=== PATIENT | female | born 1960 | race Caucasian/White ===

== ENCOUNTER → 2021-08-16 02:52 | Outpatient (CLI) | payer BC, SELFPAY ==
[2021-08-16 18:23] LABS: SARS-CoV-2 RNA PCR Negative
== END ==
PROVIDERS: PCP Nurse Practitioner Family; Visit Provider Internal Medicine Gastroenterology
DX: Z01.812 Encounter for preprocedural laboratory examination (principal); Z20.822 Contact with and (suspected) exposure to COVID-19
CPT/HCPCS: C9803; U0003; U0005

== ENCOUNTER 2021-08-19 00:48 | Day surgery (SDC) | payer BC, SELFPAY ==
[2021-08-11 13:25] VITALS: BMI 34.7
--- NOTE | 2021-08-18 15:14 | PM.HPGS ---
History of Present Illness History of Present Illness Consent: Risks, benefits, and alternatives have been discussed and questions answered. Patient agrees to proceed with procedure. Chief complaint: positive cologuard Narrative: Huong Teague is a 60 year old female Referred for colon cancer screening. Review of Systems Review of Systems: All systems reviewed & are unremarkable except as noted in HPI and below PMFSH Family History Family History Other Diabetes mellitus Family history of malignant neoplasm Social History Social History Smoking status: Never smoker Alcohol intake: current Drinks per week: 1 Living arrangements: alone Spiritual care concerns: No Meds Home Medications and Allergies Home Medications Medication Instructions Recorded Confirmed Type atorvastatin 20 mg PO DAILY 08/11/21 08/19/21 History clonazepam 0.5 mg PO DAILY 08/11/21 08/19/21 History sertraline 100 mg PO DAILY 08/11/21 08/19/21 History Allergies Allergy/AdvReac Type Severity Reaction Status Date / Time No Known Allergies Allergy Verified 08/11/21 13:23 Exam Resp: Auscultation: clear to auscultation bilaterally Cardio: Rate: regular rate Rhythm: regular rhythm GI: GI Palp: Yes Soft to palpation and No Tenderness to palpation present (GI) Assessment and Plan Assessment and plan (1) Colon cancer screening: Code(s): Z12.11 - Encounter for screening for malignant neoplasm of colon Status: Acute Assessment and Plan: Colonoscopy with possible biopsy or polypectomy or cautery or injection of substances.
[2021-08-19 06:21] VITALS: BP 145/90; PULSE 89; RESP 18; TEMP 36.1; O2SAT 98; BMI 30.7
[2021-08-19] MEDS: LACTATED RINGERS 1,000 ML 150 ML IV CONT (06:42)
--- NOTE | 2021-08-19 07:17 | WPDANESEPPF ---
Anes - Initial Pre Proc Eval Procedure: Operation Date: 08/19/21 07:30 Proposed Procedures p Colonoscopy - Beto Woodall MD Date/Time: 08/19/21 07:17 Surgeon: Beto Woodall MD Pre Op Diagnosis: positive cologuard Patient Data Age: 60 Gender: F Height: 1.57 m Weight: 76.1 kg Last Vital Signs Temp 36.1 C L 08/19/21 06:21 Pulse 89 08/19/21 06:21 Resp 18 08/19/21 06:21 BP 145/90 H 08/19/21 06:21 Pulse Ox 98 08/19/21 06:21 Allergies Allergy/AdvReac Type Severity Reaction Status Date / Time No Known Allergies Allergy Verified 08/11/21 13:23 Home Medications Medication Instructions Recorded Confirmed Type atorvastatin 20 mg PO DAILY 08/11/21 08/19/21 History clonazepam 0.5 mg PO DAILY 08/11/21 08/19/21 History sertraline 100 mg PO DAILY 08/11/21 08/19/21 History Patient hx anesthesia problems: none Family hx anesthesia problems: none Results Review: All pre-operative results and documents have been reviewed as part of the pre-operative evaluation. [facility] Past Medical History Medical History (Updated 08/19/21 @ 07:20 by Juan M Ortiz MD) Anxiety Depression Hyperlipidemia Family History Family History Other Diabetes mellitus Family history of malignant neoplasm Social History Social History Smoking status: Never smoker Alcohol intake: current Drinks per week: 1 Living arrangements: alone Spiritual care concerns: No Anes - Eval Final PreProcedure Day of Procedure 08/19/21 07:17 Patient weight: obese Heart: regular rate and rhythm Lungs: clear to auscultation and normal air movement Airway: Mallampati scale class II Neurological: alert and oriented Last oral intake: >/= 8 hours ASA classification: II Emergent: no Anesthetic plan: proceed Anesthesia type and monitoring: general GIVS Results Review: All pre-operative results and documents have been reviewed as part of the pre-operative evaluation. Informed Consent: The patient's anesthetic plan and its attendant risks and benefits were discussed with the patient/family/POA. Questions were solicited and answers provided to the satisfaction of the patient/family/POA.
[2021-08-19 08:00] VITALS: BP 102/60; PULSE 71; RESP 14; O2SAT 100
[2021-08-19 08:10] VITALS: BP 117/68; PULSE 67; RESP 22; O2SAT 100
[2021-08-19 08:20] VITALS: BP 135/78; PULSE 53; RESP 18; O2SAT 100
== END 2021-08-19 08:29 | disposition home or self-care (01) ==
PROVIDERS: PCP Nurse Practitioner Family; Visit Provider Internal Medicine Gastroenterology
PROC: 0DJD8ZZ Inspection of Lower Intestinal Tract, Via Natural or Artificial Opening Endoscopic (ICD-10-PCS; CPT 45378; principal; 2021-08-19 07:30)
DX: Z12.11 Encounter for screening for malignant neoplasm of colon (principal); D12.3 Benign neoplasm of transverse colon; K63.5 Polyp of colon; K57.30 Diverticulosis of large intestine without perforation or abscess without bleeding; R19.5 Other fecal abnormalities; F41.8 Other specified anxiety disorders; E78.5 Hyperlipidemia, unspecified; E66.9 Obesity, unspecified; Z68.30 Body mass index [BMI] 30.0-30.9, adult
CPT/HCPCS: 45385; 45381; 45380; 88305; J2001; J2704; J7120

== ENCOUNTER → 2021-10-19 11:29 | Outpatient (REF) | payer BC, SELFPAY | LOC: ANHLAB 11:29 | PROVIDERS: PCP Nurse Practitioner Family; Visit Provider Nurse Practitioner | DX: C44.529 Squamous cell carcinoma of skin of other part of trunk (principal) | CPT/HCPCS: 88305 ==

== ENCOUNTER → 2021-11-10 10:30 | Outpatient (REF) | payer BC, SELFPAY | LOC: ANHLAB 10:30 | PROVIDERS: PCP Nurse Practitioner Family; Visit Provider Nurse Practitioner | DX: C44.529 Squamous cell carcinoma of skin of other part of trunk (principal) | CPT/HCPCS: 88305; 88331 ==

== ENCOUNTER 2022-01-20 14:20 | Outpatient (CLI) | payer BC, SELFPAY ==
--- NOTE | ~2022-01-20 | MR_ITS ---
EXAMINATION: MR brain/brain stem wo/w con DATE: 01/20/2022 15:22 INDICATION: Tremor. TECHNIQUE: Magnetic resonance imaging (MRI) of the brain and brainstem was performed without and with 18 mL MultiHance intravenous contrast. COMPARISON: None. FINDINGS: There is a focus of increased T2-weighted signal intensity in the right frontal lobe deep w steven matter, which is normal as an isolated finding. There is no intracranial hemorrhage, acute infar ction, or abnormal intracranial mass lesion. The ventricles are normal in size. The paranasal sinuses are clear. The orbits are normal. The mastoid air cells are normal. IMPRESSION: 1. Normal brain. Reviewed, dictated and finalized at location B. IMPRESSION: 1. Normal brain.
[2022-01-20 15:03] LABS: Estimated Glomerular Filt Rate > 60
== END 2022-01-20 14:21 | disposition home or self-care (01) ==
PROVIDERS: PCP Nurse Practitioner Family; Visit Provider Nurse Practitioner Family
DX: R25.1 Tremor, unspecified (principal)
CPT/HCPCS: 70553; A9577

== ENCOUNTER → 2022-12-07 15:15 | Outpatient (CLI) | payer BC, SELFPAY ==
--- NOTE | ~2022-12-07 | MM_ITS ---
EXAMINATION: MM screening georgi BI w ivy HISTORY: Screening mammogram TECHNIQUE: Craniocaudal and mediolateral oblique 3-D tomosynthesis images were obtained and synthetic 2-D images were generated. CAD analysis was submitted and interpreted. COMPARISON: 03/06/2008 BREAST PARENCHYMAL COMPOSITION: There are scattered areas of fibroglandular density. FINDINGS: No suspicious mass, calcification, or architectural distortion are identified in either gale ast to suggest malignancy. There has been no suspicious interval change. IMPRESSION: 1. No mammographic evidence of malignancy. 2. Recommend routine screening mammography in one year. BI-RADS Category 1: Negative Reviewed, dictated and finalized at location A. [employer]
== END ==
PROVIDERS: PCP Nurse Practitioner Family; Visit Provider Nurse Practitioner Family
DX: Z12.31 Encounter for screening mammogram for malignant neoplasm of breast (principal)
CPT/HCPCS: 77063; 77067

== ENCOUNTER 2024-12-05 00:22 | Day surgery (SDC) | payer MEDICARE, SELFPAY ==
[2024-11-20 12:59] VITALS: BMI 36.2
--- OUTSIDE RECORDS SUMMARY | 2024-12-05 00:25 | XMS_ITS | Data Portability ---
Author Organization [place] - [facility] [employer] [facility], Main Office Address [address] [place] [address] Care Team Providers Care Calculation Clerk Name Role Phone [facility] (LAB) Primary Ca re Provider Assessment No assessment recorded. Plan of Treatment Reminders Order Date Submit Date Provider Last Modified By Organization Details Last Modified Time Details Appointments None recorded. Lab TSH, serum, reflex free T4 [address] [facility], [address] [place], [address], 3 08:54:22 drug screen, urine 2022 023 [facility], [address] [place], [address], 3 14:06:22 lipid panel, serum 2022 023 [facility], [address] [place], [address], 3 20:13:41 CMP, serum or plasma 2022 023 [facility], [address] [place], [address], 3 20:13:46 HbA1c (hemoglobin A1c), blood [address] [facility], [address] [place], [address], 3 10:09:06 CBC w/ auto diff 2022 023 [facility] - Outpatient Lab, [address] [place], [address], 20:08:56 Referral neurologist referral - eval and treat for tremor. Was a Naseer patient on primadone 2022 023 [id number] [facility] - Neurology, [address], [facility] [place], [address], 3 11:26:37 Procedures None recorded. Surgeries None recorded. Imaging None recorded. Medication Orders lisinopril 20 mg tablet 2022 023 [facility] [address], [address] [facility] [address], [place], [address], 14:38:13 Patient TargetsNo targets recorded. Patient Instructions Encounter Date Encounter Id Patient Instructions Last Modified By Organization Details Last Modified Time 02/07/2023 [id number] FU in 4 mo, sooner as needed. Lipid, depression/anxiet y, tremor Not available 02/07/2023 10:37:45 07/27/2023 [id number] FU in 6 mo for weight,, htn, depression, lipid, labs. Not available 07/27/2023 14:39:14 Reason for Referral Neurologist Referral for Keith mor eval and treat for tremor. Was a Naseer patient on primadone Referring Physician: Cristel Ball, Family Medicine, Encounter Date: 07/27/2023 Results Created Date Observation Date Name Description Value Unit Range Abnormal Flag Note LastModifiedBy Organization Detail LastModifiedTime 03/23/20 22 03/24/2022 HEMOG LOBIN A1C HA1C 5.6 % 4.0-6. 0 Diabe tori Scree kay Crite risa: <5.7% Consi stent with absen ce of diabe tori 5.7-6 .4% Consi stent with incre ased risk for diabe tori (pred iabet es) >OR=6 .5% Consi stent with diabe tori REFER ENCE: Diabe tori Care 2016, 39([place] ppl.1 ):s13 -s22 Not Available [facility] (Lab) [address] [place], [address], 03/24/2022 20:14:42 03/23/20 22 03/24/2022 FOLAT E, SERUM /PLAS MA folate 13.8 NG/mL 2.76-2 0.0 Not Available [facility] (Lab) [address] [place], [address], 03/24/2022 16:34:02 03/23/20 22 03/24/2022 VITAM IN B12 (PETRA RIYA ) vb12 561 pg/mL 239-93 1 Not Available [facility] (Lab) [address] [place], [address], 03/24/2022 16:33:57 03/23/20 22 03/24/2022 TSH W/REF ANDREI FT4 TSH with reflex free T4 0.762 uIU/m L 0.465- 4.680 Not Available [facility] (Lab) [address] [place], [address], 03/24/2022 16:11:40 03/23/20 22 03/24/2022 VITAM IN D 25-HY DROXY vd25oh 34.9 NG/mL 30-100 Vitam in D Statu s: Defic ient: <20 ng/mL Insuf ficie nt: 20-29 ng/mL Suffi cient : 30-10 0 ng/mL Not Available [facility] (Lab) [address] [place], [address], 03/24/2022 15:45:15 03/23/20 22 03/24/2022 CBC/C OMPLE TE BLD COUNT W/DIF F white blood cells 9.0 x10'3 /uL 4.2-10 .8 Not Available [facility] (Lab) [address] [place], [address], 03/24/2022 15:28:41 03/23/20 22 03/24/2022 CBC/C OMPLE TE BLD COUNT W/DIF F red blood cells 4.80 x10'6 /uL 3.80-5 .20 Not Available [facility] (Lab) [address] [place], [address], 03/24/2022 15:28:41 03/23/20 22 03/24/2022 CBC/C OMPLE TE BLD COUNT W/DIF F hemoglobin 13.7 g/dL 12.0-1 5.6 Not Available [facility] (Lab) [address] [place], [address], 03/24/2022 15:28:41 03/23/20 22 03/24/2022 CBC/C OMPLE TE BLD COUNT W/DIF F hematocrit 42.3 % 35.7-4 5.7 Not Available [facility] (Lab) [address] [place], [address], 03/24/2022 15:28:41 03/23/20 22 03/24/2022 CBC/C OMPLE TE BLD COUNT W/DIF F mean red cell volume 88.1 fL 82.0-9 9.0 Not Available [facility] (Lab) [address] [place], [address], 03/24/2022 15:28:41 03/23/20 22 03/24/2022 CBC/C OMPLE TE BLD COUNT W/DIF F mean red cell hemoglobin 28.5 pg 27.0-3 3.0 Not Available [facility] (Lab) [address] [place], [address], 03/24/2022 15:28:41 03/23/20 22 03/24/2022 CBC/C OMPLE TE BLD COUNT W/DIF F mean RBC HGB concentratio n 32.4 g/dL 31.0-3 6.0 Not Available [facility] (Lab) [address] [place], [address], 03/24/2022 15:28:41 03/23/20 22 03/24/2022 CBC/C OMPLE TE BLD COUNT W/DIF F red cell distribution width 13.3 % 11.8-1 5.5 Not Available [facility] (Lab) [address] [place], [address], 03/24/2022 15:28:41 03/23/20 22 03/24/2022 CBC/C OMPLE TE BLD COUNT W/DIF F platelets 239 x10'3 /uL 150-40 0 Not Available [facility] (Lab) [address] [place], [address], 03/24/2022 15:28:41 03/23/20 22 03/24/2022 CBC/C OMPLE TE BLD COUNT W/DIF F mean platelet volume 11.7 fL 9.0-12 .4 Not Available [facility] (Lab) [address] [place], [address], 03/24/2022 15:28:41 03/23/2003/24/2022 CBC/C OMPLE TE BLD COUNT W/DIF F neutrophils 56.2 % 39.0-7 2.0 Not Available [facility] (Lab) [address] [place], [address], 03/24/2022 15:28:41 03/23/2003/24/2022 CBC/C OMPLE TE BLD COUNT W/DIF F lymphocytes 30.5 % 16.0-4 7.0 Not Available [facility] (Lab) [address] [place], [address], 03/24/2022 15:28:41 03/23/20 22 03/24/2022 CBC/C OMPLE TE BLD COUNT W/DIF F monocytes 8.8 % 5.0-12 .0 Not Available [facility] (Lab) [address] [place], [address], 03/24/2022 15:28:41 03/23/20 22 03/24/2022 CBC/C OMPLE TE BLD COUNT W/DIF F eosinophils 3.2 % 1.0-7. 0 Not Available [facility] (Lab) [address] [place], [address], 03/24/2022 15:28:41 03/23/20 22 03/24/2022 CBC/C OMPLE TE BLD COUNT W/DIF F basophils 0.6 % 0.0-2. 0 Not Available [facility] (Lab) [address] [place], [address], 03/24/2022 15:28:41 03/23/20 22 03/24/2022 CBC/C OMPLE TE BLD COUNT W/DIF F immature granulocytes 0.7 % 0.00-0 .50 high Not Available [facility] (Lab) [address] [place], [address], 03/24/2022 15:28:41 03/23/20 22 03/24/2022 CBC/C OMPLE TE BLD COUNT W/DIF F neutrophils, absolute count 5.08 x10'3 /uL 1.5-8. 0 Not Available [facility] (Lab) [address] [place], [address], 03/24/2022 15:28:41 03/23/2003/24/2022 CBC/C OMPLE TE BLD COUNT W/DIF F lymphocytes, absolute count 2.76 x10'3 /uL 1.07-3 .43 Not Available [facility] (Lab) [address] [place], [address], 03/24/2022 15:28:41 03/23/20 22 03/24/2022 CBC/C OMPLE TE BLD COUNT W/DIF F monocytes, absolute count 0.80 x10'3 /uL 0.29-0 .99 Not Available [facility] (Lab) [address] [place], [address], 03/24/2022 15:28:41 03/23/20 22 03/24/2022 CBC/C OMPLE TE BLD COUNT W/DIF F eosinophils, absolute count 0.29 x10'3 /uL 0.02-0 .53 Not Available [facility] (Lab) [address] [place], [address], 03/24/2022 15:28:41 03/23/20 22 03/24/2022 CBC/C OMPLE TE BLD COUNT W/DIF F basophils, absolute count 0.05 x10'3 /uL 0.01-0 .08 Not Available [facility] (Lab) [address] [place], [address], 03/24/2022 15:28:41 03/23/20 22 03/24/2022 CBC/C OMPLE TE BLD COUNT W/DIF F immature granulocytes ,absolute 0.06 x10'3 /uL 0.00-0 .05 high Not Available [facility] (Lab) [address] [place], [address], 03/24/2022 15:28:41 03/23/20 22 03/24/2022 CBC/C OMPLE TE BLD COUNT W/DIF F nucleated red blood cells 0.0 % -0 Not Available [facility] (Lab) [address] [place], [address], 03/24/2022 15:28:41 03/23/20 22 03/24/2022 CBC/C OMPLE TE BLD COUNT W/DIF F NRBC# 0.00 x10'3 /uL Not Available [facility] (Lab) [address] [place], [address], 03/24/2022 15:28:41 03/23/20 22 03/24/2022 COMPR EHENS VIRIDIANA METAB OLIC PANEL sodium 135 mmol/ L 137-14 5 low Not Available [facility] (Lab) [address] [place], [address], 03/24/2022 15:22:13 03/23/20 22 03/24/2022 COMPR EHENS VIRIDIANA METAB OLIC PANEL potassium 4.1 mmol/ L 3.5-5. 1 Not Available [facility] (Lab) [address] [place], [address], 03/24/2022 15:22:13 03/23/20 22 03/24/2022 COMPR EHENS VIRIDIANA METAB OLIC PANEL chloride 103 mmol/ L 98-107 Not Available [facility] (Lab) [address] [place], [address], 03/24/2022 15:22:13 03/23/20 22 03/24/2022 COMPR EHENS VIRIDIANA METAB OLIC PANEL carbon dioxide 25 mmol/ L 22-30 Not Available [facility] (Lab) [address] [place], [address], 03/24/2022 15:22:13 03/23/20 22 03/24/2022 COMPR EHENS VIRIDIANA METAB OLIC PANEL anion gap 11.1 mmol/ L 14-22 low Not Available [facility] (Lab) [address] [place], [address], 03/24/2022 15:22:13 03/23/20 22 03/24/2022 COMPR EHENS VIRIDIANA METAB OLIC PANEL glucose 80 mg/dL 70-99 Not Available [facility] (Lab) [address] [place], [address], 03/24/2022 15:22:13 03/23/20 22 03/24/2022 COMPR EHENS VIRIDIANA METAB OLIC PANEL BUN 14 mg/dL 8-19 Not Available [facility] (Lab) [address] [place], [address], 03/24/2022 15:22:13 03/23/20 22 03/24/2022 COMPR EHENS VIRIDIANA METAB OLIC PANEL creatinine 0.71 mg/dL 0.66-1 .25 Not Available [facility] (Lab) [address] [place], [address], 03/24/2022 15:22:13 03/23/20 22 03/24/2022 COMPR EHENS VIRIDIANA METAB OLIC PANEL GFR >60 Refer ence Range : [place] GFR Healt hy Adult : >60 mL/mi n/1.7 3 m2 Chron ic Kidne y Disea se: 15-60 mL/mi n/1.7 3 m2 Kidne y Failu re: <15/m L/min /1.73 m2 www.n iddk. nih.g ov The MDRD study equat ion has not been valid ated in child yeyo <18 years of age; pregn ant women ; the elder ly >85 years of age; or in some racia l or ethni c subgr oups, such as Hisaz nics. Outsi de the valid ated cece eters , estim ated GFR is less accur ate, requi ring clini ryne judgm ent on a case- by-ca se basis . Clini ryne inter preta tion for other races and ages must be made by the clini alfredo. The MDRD study equat ion has not been valid ated for the evalu ation of serum creat inine relat ed to nutri claar l statu s or medic ation usage . For perso ns <18 years of age, a pedia tric GFR calcu lator is avail able on the F websi te: https ://wilma w.kid margarito.o rg/pr ofess ional s/kdo qi/gf r_cal culat or Not Available [facility] (Lab) [address] [place], [address], 03/24/2022 15:22:13 03/23/20 22 03/24/2022 COMPR EHENS VIRIDIANA METAB OLIC PANEL alkaline phosphatase 134 U/L 38-126 high Not Available [facility] (Lab) [address] [place], [address], 03/24/2022 15:22:13 03/23/20 22 03/24/2022 COMPR EHENS VIRIDIANA METAB OLIC PANEL alanine aminotransfe rase 20 U/L 0-35 Not Available [facility] (Lab) [address] [place], [address], 03/24/2022 15:22:13 03/23/20 22 03/24/2022 COMPR EHENS VIRIDIANA METAB OLIC PANEL aspartate aminotransfe rase 28 U/L 15-37 Not Available [facility] (Lab) [address] [place], [address], 03/24/2022 15:22:13 03/23/20 22 03/24/2022 COMPR EHENS VIRIDIANA METAB OLIC PANEL bilirubin, total 0.50 mg/dL 0.20-1 .30 Not Available [facility] (Lab) [address] [place], [address], 03/24/2022 15:22:13 03/23/20 22 03/24/2022 COMPR EHENS VIRIDIANA METAB OLIC PANEL calcium 10.0 mg/dL 8.4-10 .2 Not Available [facility] (Lab) [address] [place], [address], 03/24/2022 15:22:13 03/23/20 22 03/24/2022 COMPR EHENS VIRIDIANA METAB OLIC PANEL total protein 7.7 g/dL 6.3-8. 2 Not Available [facility] (Lab) [address] [place], [address], 03/24/2022 15:22:13 03/23/20 22 03/24/2022 COMPR EHENS VIRIDIANA METAB OLIC PANEL albumin 4.7 g/dL 3.0-4. 4 high Not Available [facility] (Lab) [address] [place], [address], 03/24/2022 15:22:13 03/23/20 22 03/24/2022 COMPR EHENS VIRIDIANA METAB OLIC PANEL globulin 3.0 g/dL 2.6-4. 2 Not Available [facility] (Lab) [address] [place], [address], 03/24/2022 15:22:13 03/23/20 22 03/24/2022 COMPR EHENS VIRIDIANA METAB OLIC PANEL A/G ratio 1.6 ratio 1.0-2. 0 Not Available [facility] (Lab) [address] [place], [address], 03/24/2022 15:22:13 03/23/20 22 03/24/2022 LIPID PANEL cholesterol 242 mg/dL 140-19 9 high NIH JOSE NSUS RECOM MENDA TION FOR CANDY STERO L: ADULT CHILD LOW RISK: <200 <170 BORDE RLINE : <200- 239 ----- HIGH RISK: >240 >200 Not Available [facility] (Lab) [address] [place], [address], 03/24/2022 15:22:03 03/23/20 22 03/24/2022 LIPID PANEL triglyceride s 220 mg/dL 0-150 high NIH JOSE NSUS REPOR T RECOM MENDA TION FOR TRIGL YCERI JOSE: ADULT CHILD LOW RISK: <150 ----- BODER LINE: 150-1 99 ----- HIGH RISK: >200 ----- Not Available [facility] (Lab) [address] [place], [address], 03/24/2022 15:22:03 03/23/20 22 03/24/2022 LIPID PANEL HDL cholesterol 52 mg/dL 40- Not Available [facility] (Lab) [address] [place], [address], 03/24/2022 15:22:03 03/23/20 22 03/24/2022 LIPID PANEL LDL cholesterol, calculated 146 mg/dL 0-130 high NIH JOSE NSUS REPOR T RECOM MENDA TIONS FOR LDL: ADULT CHILD LOW RISK <130 <110 (OPTI MAL LDL) <100 ----- SANYADE RLINE : 130-1 59 ----- HIGH RISK: >160 >130 A TRIGL YCERI DE RESUL T >400 INVAL IDATE S THE CALCU LATIO N FOR LDL FRACT IONAT ION - THE LDL RESUL T WILL NOT BE REPOR LAZARA. Not Available [facility] (Lab) [address] [place], [address], 03/24/2022 15:22:03 02/08/2002/07/2023 CBC/C OMPLE TE BLD COUNT W/DIF F white blood cells 7.5 x10'3 /uL 4.2-10 .8 Not Available [facility] (Lab) [address] [place], [address], 02/07/2023 20:08:55 02/08/2002/07/2023 CBC/C OMPLE TE BLD COUNT W/DIF F red blood cells 4.58 x10'6 /uL 3.80-5 .20 Not Available [facility] (Lab) [address] [place], [address], 02/07/2023 20:08:55 02/08/2002/07/2023 CBC/C OMPLE TE BLD COUNT W/DIF F hemoglobin 13.1 g/dL 12.0-1 5.6 Not Available [facility] (Lab) [address] [place], [address], 02/07/2023 20:08:55 02/08/2002/07/2023 CBC/C OMPLE TE BLD COUNT W/DIF F hematocrit 40.6 % 35.7-4 5.7 Not Available [facility] (Lab) [address] [place], [address], 02/07/2023 20:08:55 02/08/20 23 02/07/2023 CBC/C OMPLE TE BLD COUNT W/DIF F mean red cell volume 88.6 fL 82.0-9 9.0 Not Available [facility] (Lab) [address] [place], [address], 02/07/2023 20:08:55 02/08/20 23 02/07/2023 CBC/C OMPLE TE BLD COUNT W/DIF F mean red cell hemoglobin 28.6 pg 27.0-3 3.0 Not Available [facility] (Lab) [address] [place], [address], 02/07/2023 20:08:55 02/08/20 23 02/07/2023 CBC/C OMPLE TE BLD COUNT W/DIF F mean RBC HGB concentratio n 32.3 g/dL 31.0-3 6.0 Not Available [facility] (Lab) [address] [place], [address], 02/07/2023 20:08:55 02/08/20 23 02/07/2023 CBC/C OMPLE TE BLD COUNT W/DIF F red cell distribution width 13.3 % 11.8-1 5.5 Not Available [facility] (Lab) [address] [place], [address], 02/07/2023 20:08:55 02/08/20 23 02/07/2023 CBC/C OMPLE TE BLD COUNT W/DIF F platelets 243 x10'3 /uL 150-40 0 Not Available [facility] (Lab) [address] [place], [address], 02/07/2023 20:08:55 02/08/20 23 02/07/2023 CBC/C OMPLE TE BLD COUNT W/DIF F mean platelet volume 11.6 fL 9.0-12 .4 Not Available [facility] (Lab) [address] [place], [address], 02/07/2023 20:08:55 02/08/20 23 02/07/2023 CBC/C OMPLE TE BLD COUNT W/DIF F neutrophils 56.4 % 39.0-7 2.0 Not Available [facility] (Lab) [address] [place], [address], 02/07/2023 20:08:55 02/08/20 23 02/07/2023 CBC/C OMPLE TE BLD COUNT W/DIF F lymphocytes 33.1 % 16.0-4 7.0 Not Available [facility] (Lab) [address] [place], [address], 02/07/2023 20:08:55 02/08/20 23 02/07/2023 CBC/C OMPLE TE BLD COUNT W/DIF F monocytes 7.7 % 5.0-12 .0 Not Available [facility] (Lab) [address] [place], [address], 02/07/2023 20:08:55 02/08/20 23 02/07/2023 CBC/C OMPLE TE BLD COUNT W/DIF F eosinophils 2.0 % 1.0-7. 0 Not Available [facility] (Lab) [address] [place], [address], 02/07/2023 20:08:55 02/08/20 23 02/07/2023 CBC/C OMPLE TE BLD COUNT W/DIF F basophils 0.5 % 0.0-2. 0 Not Available [facility] (Lab) [address] [place], [address], 02/07/2023 20:08:55 02/08/20 23 02/07/2023 CBC/C OMPLE TE BLD COUNT W/DIF F immature granulocytes 0.3 % 0.00-0 .50 Not Available [facility] (Lab) [address] [place], [address], 02/07/2023 20:08:55 02/08/20 23 02/07/2023 CBC/C OMPLE TE BLD COUNT W/DIF F neutrophils, absolute count 4.24 x10'3 /uL 1.5-8. 0 Not Available [facility] (Lab) [address] [place], [address], 02/07/2023 20:08:55 02/08/20 23 02/07/2023 CBC/C OMPLE TE BLD COUNT W/DIF F lymphocytes, absolute count 2.49 x10'3 /uL 1.07-3 .43 Not Available [facility] (Lab) [address] [place], [address], 02/07/2023 20:08:55 02/08/20 23 02/07/2023 CBC/C OMPLE TE BLD COUNT W/DIF F monocytes, absolute count 0.58 x10'3 /uL 0.29-0 .99 Not Available [facility] (Lab) [address] [place], [address], 02/07/2023 20:08:55 02/08/20 23 02/07/2023 CBC/C OMPLE TE BLD COUNT W/DIF F eosinophils, absolute count 0.15 x10'3 /uL 0.02-0 .53 Not Available [facility] (Lab) [address] [place], [address], 02/07/2023 20:08:55 02/08/20 23 02/07/2023 CBC/C OMPLE TE BLD COUNT W/DIF F basophils, absolute count 0.04 x10'3 /uL 0.01-0 .08 Not Available [facility] (Lab) [address] [place], [address], 02/07/2023 20:08:55 02/08/20 23 02/07/2023 CBC/C OMPLE TE BLD COUNT W/DIF F immature granulocytes ,absolute 0.02 x10'3 /uL 0.00-0 .05 Not Available [facility] (Lab) [address] [place], [address], 02/07/2023 20:08:55 02/08/20 23 02/07/2023 CBC/C OMPLE TE BLD COUNT W/DIF F nucleated red blood cells 0.0 % -0 Not Available [facility] (Lab) [address] [place], [address], 02/07/2023 20:08:55 02/08/20 23 02/07/2023 CBC/C OMPLE TE BLD COUNT W/DIF F NRBC# 0.00 x10'3 /uL Not Available [facility] (Lab) [address] [place], [address], 02/07/2023 20:08:55 02/08/20 23 02/07/2023 LIPID PANEL cholesterol 165 mg/dL 140-19 9 NIH JOSE NSUS RECOM MENDA TION FOR CANDY STERO L: ADULT CHILD LOW RISK: <200 <170 BORDE RLINE : <200- 239 ----- HIGH RISK: >240 >200 Not Available [facility] (Lab) [address] [place], [address], 02/07/2023 20:13:41 02/08/20 23 02/07/2023 LIPID PANEL triglyceride s 163 mg/dL 0-150 high NIH JOSE NSUS REPOR T RECOM MENDA TION FOR TRIGL YCERI JOSE: ADULT CHILD LOW RISK: <150 ----- BODER LINE: 150-1 99 ----- HIGH RISK: >200 ----- Not Available [facility] (Lab) [address] [place], [address], 02/07/2023 20:13:41 02/08/20 23 02/07/2023 LIPID PANEL HDL cholesterol 45 mg/dL 40- Not Available [facility] (Lab) [address] [place], [address], 02/07/2023 20:13:41 02/08/20 23 02/07/2023 LIPID PANEL LDL cholesterol, calculated 87 mg/dL 0-130 NIH JOSE NSUS REPOR T RECOM MENDA TIONS FOR LDL: ADULT CHILD LOW RISK <130 <110 (OPTI MAL LDL) <100 ----- BORDE RLINE : 130-1 59 ----- HIGH RISK: >160 >130 A TRIGL YCERI DE RESUL T >400 INVAL IDATE S THE CALCU LATIO N FOR LDL FRACT IONAT ION - THE LDL RESUL T WILL NOT BE REPOR LAZARA. Not Available [facility] (Lab) [address] [place], [address], 02/07/2023 20:13:41 02/08/20 23 02/07/2023 COMPR EHENS VIRIDIANA METAB OLIC PANEL sodium 138 mmol/ L 137-14 5 Not Available [facility] (Lab) [address] [place], [address], 02/07/2023 20:13:46 02/08/20 23 02/07/2023 COMPR EHENS VIRIDIANA METAB OLIC PANEL potassium 4.3 mmol/ L 3.5-5. 1 Not Available [facility] (Lab) [address] [place], [address], 02/07/2023 20:13:46 02/08/20 23 02/07/2023 COMPR EHENS VIRIDIANA METAB OLIC PANEL chloride 104 mmol/ L 98-107 Not Available [facility] (Lab) [address] [place], [address], 02/07/2023 20:13:46 02/08/20 23 02/07/2023 COMPR EHENS VIRIDIANA METAB OLIC PANEL carbon dioxide 25 mmol/ L 22-30 Not Available [facility] (Lab) [address] [place], [address], 02/07/2023 20:13:46 02/08/20 23 02/07/2023 COMPR EHENS VIRIDIANA METAB OLIC PANEL anion gap 13.3 mmol/ L 14-22 low Not Available [facility] (Lab) [address] [place], [address], 02/07/2023 20:13:46 02/08/20 23 02/07/2023 COMPR EHENS VIRIDIANA METAB OLIC PANEL glucose 94 mg/dL 70-99 Not Available [facility] (Lab) [address] [place], [address], 02/07/2023 20:13:46 02/08/20 23 02/07/2023 COMPR EHENS VIRIDIANA METAB OLIC PANEL BUN 15 mg/dL 8-19 Not Available [facility] (Lab) [address] [place], [address], 02/07/2023 20:13:46 02/08/20 23 02/07/2023 COMPR EHENS VIRIDIANA METAB OLIC PANEL creatinine 0.72 mg/dL 0.66-1 .25 Not Available [facility] (Lab) [address] [place], [address], 02/07/2023 20:13:46 02/08/20 23 02/07/2023 COMPR EHENS VIRIDIANA METAB OLIC PANEL GFR >60 Refer ence Range : [place] ge GFR Healt hy Adult : >60 mL/mi n/1.7 3 m2 Chron ic Kidne y Disea se: 15-60 mL/mi n/1.7 3 m2 Kidne y Failu re: <15/m L/min /1.73 m2 www.n iddk. nih.g ov The MDRD study equat ion has not been valid ated in child yeyo <18 years of age; pregn ant women ; the elder ly >85 years of age; or in some racia l or ethni c subgr oups, such as Hispa nics. Outsi de the valid ated cece eters , estim ated GFR is less accur ate, requi ring clini ryne judgm ent on a case- by-ca se basis . Clini ryne inter preta tion for other races and ages must be made by the clini alfredo. The MDRD study equat ion has not been valid ated for the evalu ation of serum creat inine relat ed to nutri clara l statu s or medic ation usage . For perso ns <18 years of age, a pedia tric GFR calcu lator is avail able on the [facility] websi te: https :[email or web address] [email or web address].bhaskar wooy.o rg/pr ofess ional s/kdo qi/gf r_cal culat or Not Available [facility] (Lab) [address] [place], [address], 02/07/2023 20:13:46 02/08/20 23 02/07/2023 COMPR EHENS VIRIDIANA METAB OLIC PANEL alkaline phosphatase 126 U/L 38-126 Not Available [facility] (Lab) [address] [place], [address], 02/07/2023 20:13:46 02/08/20 23 02/07/2023 COMPR EHENS VIRIDIANA METAB OLIC PANEL alanine aminotransfe rase 24 U/L 0-35 Not Available [facility] (Lab) [address] [place], [address], 02/07/2023 20:13:46 02/08/20 23 02/07/2023 COMPR EHENS VIRIDIANA METAB OLIC PANEL aspartate aminotransfe rase 26 U/L 15-37 Not Available [facility] (Lab) [address] [place], [address], 02/07/2023 20:13:46 02/08/20 23 02/07/2023 COMPR EHENS VIRIDIANA METAB OLIC PANEL bilirubin, total 0.40 mg/dL 0.20-1 .30 Not Available [facility] (Lab) [address] [place], [address], 02/07/2023 20:13:46 02/08/20 23 02/07/2023 COMPR EHENS VIRIDIANA METAB OLIC PANEL calcium 9.9 mg/dL 8.4-10 .2 Not Available [facility] (Lab) [address] [place], [address], 02/07/2023 20:13:46 02/08/20 23 02/07/2023 COMPR EHENS VIRIDIANA METAB OLIC PANEL total protein 7.2 g/dL 6.3-8. 2 Not Available [facility] (Lab) [address] [place], [address], 02/07/2023 20:13:46 02/08/20 23 02/07/2023 COMPR EHENS VIRIDIANA METAB OLIC PANEL albumin 4.5 g/dL 3.0-4. 4 high Not Available [facility] (Lab) [address] [place], [address], 02/07/2023 20:13:46 02/08/20 23 02/07/2023 COMPR EHENS VIRIDIANA METAB OLIC PANEL globulin 2.7 g/dL 2.6-4. 2 Not Available [facility] (Lab) [address] [place], [address], 02/07/2023 20:13:46 02/08/20 23 02/07/2023 COMPR EHENS VIRIDIANA METAB OLIC PANEL A/G ratio 1.7 ratio 1.0-2. 0 Not Available [facility] (Lab) [address] [place], [address], 02/07/2023 20:13:46 02/08/20 23 02/07/2023 TSH W/REF ANDREI FT4 TSH with reflex free T4 2.050 uIU/m L 0.465- 4.680 Not Available [facility] (Lab) [address] [place], [address], 02/07/2023 20:29:53 02/08/20 23 02/07/2023 HEMOG LOBIN A1C HA1C 5.6 % 4.0-6. 0 Diabe tori Veena villanueva Crite risa: <5.7% Consi stent with absen ce of diabe tori 5.7-6 .4% Consi stent with incre ased risk for diabe tori (pred iabet es) >OR=6 .5% Consi stent with diabe tori REFER ENCE: Diabe tori Care 2016, 39([place] ppl.1 ):s13 -s22 Not Available [facility] ([facility]) [address] [place], [address], 02/07/2023 21:28:40 12/08/19 23 12/07/2022 MAMMO , veena villanueva, digit al, bilat eral No observ ation record ed. [email or web address] [facility] [address], [place], [address], 12/12/2022 16:39:42 Result Notes None recorded. Problems Name Problem SNOMED Code Status Onset Date Resolution Date Notes Provider Name and Address Organization Details Recorded Time Hypercholester olemia 42442647 Active 2020 Not Available [facility] 3 23:30:25 Tremor 61099480 Active 2020 Not Available [facility] 3 23:30:25 Depressive disorder 41067736 Active 2020 Not Available [facility] 3 23:30:25 Anxiety 29865740 Active 2020 Not Available [facility] 3 23:30:25 Hyperlipidemia 49087532 Active 2020 Not Available [facility] 3 23:30:25 Essential hypertension 31993666 Active 2022 Cristel Ball NP [address], [facility] [address], [place], [address] , [facility] [employer] 3 14:37:25 Notes:squamous cell skin can cer back 10/2021 Problem Notes None recorded. Procedures Surgical History Date Name Laterality Status Provider Name and Address Organization Details Recorded Time 3 Most Recent Mammogram completed Cristel Gonzalez RN [employer] 02/07/2023 10:02:21 Date of Last Pap Smear completed Not Available [facility] 11/30/2022 23:28:57 Imaging Results Imaging Date Name Status LastModified by Organiz ation Details LastModified Time 12/07/2022 MAMMO, screening, digital, bilateral completed [email or web address] [facility] [address], [place], [address], 12/12/2022 16:39:42 Procedure Notes None recorded. Medical Equipment None Reported. Allergies No known drug allergies Medications Name Sig Start Date Stop Date Status Note LastModified by Organization Details LastModified Time atorvastatin 40 mg tablet active Not Available Not Available Not Available primidone 50 mg tablet TAKE 1/2 (ONE-THELMA F) TABLET BY MOUTH ONCE DAILY AT BEDTIME 07/27 completed Not Available Not Available Not Available atorvastatin 20 mg tablet TAKE 1 TABLET BY MOUTH NIGHTLY AT BEDTIME 03/25 completed Not Available Not Available Not Available cephalexin 250 mg capsule TAKE 1 CAPSULE BY MOUTH EVERY 6 HOURS 03/23 completed Not Available Not Available Not Available lisinopril 20 mg tablet Take 1 tablet(s ) every day by oral route. active Not Available Not Available No t Available clonazepam 0.5 mg tablet TAKE 1/2 TO 1 (ONE-THELMA F TO ONE) TABLET BY MOUTH TWICE DAILY NEEDED 2022 active Not Available Not Available Not Avai lable sertraline 100 mg tablet active Not Available Not Available Not Available Vitals Date Recorded Body mass index (BMI) Body height Oxygen saturation Oxygen saturation in Arterial blood by Pulse oximetry Heart rate Body temperature Body weight Systolic blood pressure Diastolic blood pressure Provider Name and Address Organization Details Last Updated DateTime 2 36.8 kg/m2 157.48 cm 99 % 99 % 64 /min 97.5 [degF] 01549.0 7 g 126 mm[Hg] 76 mm[Hg] Not Available [facility] 3 23:30:02 Date Recorded Body mass index (BMI) Body height Oxygen saturation Oxygen saturation in Arterial blood by Pulse oximetry Heart rate Body temperature Body weight Systolic blood pressure Diastolic blood pressure Provider Name and Address Organization Details Last Updated DateTime 2 35.4 kg/m2 157.48 cm 98 % 98 % 76 /min 98.2 [degF] 94455.4 3 g 122 mm[Hg] 80 mm[Hg] Not Available [facility] 3 23:30:02 Date Recorded Body height Body mass index (BMI) Body weight Body temperature Heart rate Heart rate Respiratory rate Oxygen saturation Oxygen saturation in Arterial blood by Pulse oximetry Pain severity - 0-10 verbal numeric rating [Score] - Reported Systolic blood pressure Diastolic blood pressure Provider Name and Address Organization Details Last Updated DateTime 3 157.48 cm 36.6 kg/m2 35499.4 7 g 96.9 [degF] 67 /min 67 /min 16 /min 97 % 97 % 0 158 mm[Hg] 86 mm[Hg] Cristel Gonzalez RN [facility] [employer] [facility] 3 10:00:33 Date Recorded Body height Body mass index (BMI) Body weight Body temperature Heart rate Respiratory rate Oxygen saturation Oxygen saturation in Arterial blood by Pulse oximetry Pain severity - 0-10 verbal numeric rating [Score] - Reported Systolic blood pressure Diastolic blood pressure Provider Name and Address Organization Details Last Updated DateTime 3 157.48 cm 36.3 kg/m2 82556.0 9 g 97 [degF] 62 /min 16 /min 98 % 98 % 0 170 mm[Hg] 100 mm[Hg] Cristel Gonzalez RN [facility] [employer] [facility] 3 14:10:08 Social History Question Answer Notes LastModified by Organization Details LastModified Time Tobacco Smoking Status Never Smoker Not Available [facility] 11/30/2022 23:28:34 Do You Have An Advance Directive? Yes Information not available 02/07/2023 What Is Your Level Of Alcohol Consumption? Occasional [email or web address].[id number] Information not available 11/30/2022 Do You Wear A Helmet When Biking? No [id number].[id number] Information not available 11/30/2022 Is Blood Transfusion Acceptable In An Emergency? Yes Information not available 02/07/2023 What Is Your Level Of Caffeine Consumption? Moderate [id number] Information not available 11/30/2022 What Is Your Code Status? DNR Information not available 02/07/2023 In The 14 Days Before Symptom Onset, Have You Had Close Contact With A Laboratory-confi rmed COVID-19 While That Case Was Ill? No MIGRATION.030 [id number] Information not available 11/30/2022 In The 14 Days Before Symptom Onset, Have You Had Close Contact With A Person Who Is Under Investigation For COVID-19 While That Person Was Ill? No MIGRATION.0301 [id number] Information not available 11/30/2022 Are You Currently Employed? Yes Information not available 02/07/2023 What Type Of Diet Are You Following? 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 Yes Son Passed (2019) MIGRATION.030 [id number] Information not available 11/30/2022 Do You Use Insect Repellent Routinely? Yes MIGRATION.030 [id number] Information not available 11/30/2022 Where Do You Live? SingleLevelHouse Information not available 02/07/2023 Do You Have A Medical Power Of Cotton Stomper? Yes Information not available 02/07/2023 Have You Ever Been Counseled For Unhealthy Alcohol Use? No MIGRATION.0301 [id number] Information not available 11/30/2022 Do You Have Any Pets? No MIGRATION.0301 [id number] Information not available 11/30/2022 What Is Your Relationship Status? MIGRATION.030 [id number] Information not available 11/30/2022 Do You Use Your Seat Belt Or Car Seat Routinely? Yes MIGRATION.0301 [id number] Information not available 11/30/2022 Do You Have Smoke And Carbon Monoxide Detectors In Your Home? Yes MIGRATION.0301 [id number] Information not available 11/30/2022 Are There Any Smokers In Your House? No MIGRATION.0301 532304 Information not available 11/30/2022 Do You Participate In Social Media? Yes MIGRATION.0301 668479 Information not available 11/30/2022 Do You Feel Stressed (tense, Restless, Nervous, Or Anxious, Or Unable To Sleep At Night)? [id number] MIGRATION.0301 467463 Information not available 11/30/2022 Do You Use Any Illicit Or Recreational Drugs? No MIGRATION.0301 242434 Information not available 11/30/2022 Do You Use Sunscreen Routinely? Yes MIGRATION.0301 [id number] Information not available 11/30/2022 Has Tobacco Cessation Counseling Been Provided? No MIGRATION.0301 832620 Information not available 11/30/2022 Have You Recently Traveled Abroad? No MIGRATION.0301 [id number] Information not available 11/30/2022 Do You Have Any Dietary Restrictions? No MIGRATION.0301 787860 Information not available 11/30/2022 Do You Or Have You Ever Used Any Other Forms Of Tobacco Or Nicotine? No MIGRATION.0301 855013 Information not available 11/30/2022 Sex: Unknown Functional Status Question Answer Note LastModified by Organization D etails LastModified Time What is your exercise level? None Information not available 07/27/2023 Mental Status None recorded. Family History Relationship Description Onset Age of this Age Resolved Age Notes LastModified by Organization Details LastModified Time Father Diabetes mellitus MIGRATION.475 [id number] Not available 11/30/2022 23:29:02 Paternal Grandmother Heart disease MIGRATION.402 [id number] Not available 11/30/2022 23:29:02 Son Attack Heart: Deceas ed MIGRATION.526 [id number] Not available 11/30/2022 23:29:02 Maternal Grandfather Attack Heart: Deceas ed MIGRATION.494 [id number] Not available 11/30/2022 23:29:02 Medical History Condition Response BLINDNESS N RHEUMATIC FEVER N KIDNEY STONES N BLADDER PROBLEMS N MRSA N OTHER # 1 N POLIO N LUNG DISEASE/DISORDER N HISTORY OF DRUG ABUSE N RADIATION / CHEMOTHERAPY N COPD N Other # 2 N BLOOD DISEASES N SURGERY N EAR OR HEARING PROBLEMS N MUMPS N SHINGLES N FEMALE PROBLEMS / INFECTIONS N DEPRESSION (INCLUDING POST ) N BOWEL PROBLEMS N STROKE/TIA N THYROID DISEASE N ULCERS N BENIGN PROSTATIC HYPERPLASIA N MEASLES N CERVICALGIA N TB SKIN TEST N HYPOTENSION N MYOCARDIAL INFARCTION N PARAPELGIA N OBESITY N GERD/NAUSEA N ANEURYSM N URINARY/BLADDER/KIDNEY PROBLEMS N CORONARY ARTERY DISEASE (CAD) N MENIERE'S DISEASE N ADDICTION CONCERNS N ENDOMETRIOSIS N USE OF BLOOD THINNERS N SKIN PROBLEMS N EMPHYSEMA N GASTROINTESTINAL DISORDER N MUSCLE,JOINT OR BONE PROBLEMS N GASTROINTESTINAL BLEEDING N BLOOD CLOTS N ASTHMA N CATARACTS N ERECTILE DYSFUNCTION N GI PROBLEMS N CHF N Low Testosterone N NEUROPATHY N INFERTILITY N AIDS/HIV N FRACTURES N CHEMOTHERAPY / RADIATION N VISION/EYE PROBLEMS N LIVER DISEASE N MALE HYPOGONADISM N HYPERTENSION Y TOURETTE'S N ANXIETY DISORDER Y BLOOD TRANSFUSION N ANEMIA/BLOOD DISORDER N CHRONIC EAR INFECTIONS N BRONCHITIS N TUBERCULOSIS N GLAUCOMA N FOOT PROBLEM N DIVERTICULITIS N SLEEP APNEA N CHICKENPOX N ALLERGIES/HAYFEVER N INFECTIOUS DISEASE N PROSTATE N HEART ARRHYTHMIA N INSOMNIA N HIGH CHOLESTEROL / HYPERLIPIDEMIA Y EYE PROBLEMS N HYPERTHYROIDISM N EATING DISORDER N EDEMA N CHRONIC PAIN SYNDROME N CAROTID BLOCKAGE N CONSTIPATION N BACK / NECK PROBLEMS N HAVE YOU BEEN HOSPITALIZED OR SEEN IN [facility] IN THE PAST YEAR ? N ATHEROSCLEROSIS N BREAST PROBLEMS N DIALYSIS N ECZEMA N FIBROMYALGIA N OSTEOPOROSIS N ARTHRITIS N NO SIGNIFICANT PAST MEDICAL HISTORY N APPENDICITIS N DIABETES, TYPE N BAD TEETH N HEARTBURN / REFLUX N ADD/ADHD N AUTISM SPECTRUM DISORDER (ASD) N HEPATITIS / LIVER DISEASE N PULMONARY DISEASE N GOUT N SLEEP DISORDER N ALZHEIMER'S DISEASE N PAIN N DEMENTIA N HERPES N SEIZURES/EPILEPSY N HEADACHES/MIGRAINES N VASCULAR DISEASE N PACEMAKER N DIZZINESS N HEART DISEASE/HEART PROBLEMS N KIDNEY DISEASE N SCARLET FEVER N MULTIPLE SCLEROSIS N DEVELOPMENTAL OR BEHAVIORAL DISORDERS N MENTAL DISORDER/ILLNESS N CANCER: SPECIFY N CARDIAC ARRHYTHMIA N PNEUMONIA N ATRIAL FIBRILLATION N Gall Stones N PULMONARY EMBOLISM N AUTOIMMUNE DISEASE N Gynecological History Statement/Question Response If Post Menopausal, Age at Menopause 44 Date of Last Mammogram 12/07/2022 Date of Last Colonoscopy Most Recent Bone Density Date of LMP Date of Last Pap Smear 07/23/2021 Most Recent Mammogram 12/07/2022 Obstetrics History GPAL:G 0 P 0 0 0 0 Immunizations Vaccine Type Date Status Note Provider Nam e and Address Organization Details Recorded Time Influenza, split virus, quadrivalent, PF 07/27/2022 completed Not Available [facility] 3 23:31:53 Influenza, split virus, quadrivalent, PF 07/23/2021 completed Not Available [facility] 3 23:31:53 Influenza, split virus, quadrivalent, PF 07/27/2023 completed Cristel Gonzalez RN [facility], [facility] [employer] [facility] 07/27/2023 14:56:23 Past Encounters Encounter ID Performer Location Encounter Start Date Encounter Closed Date Diagnosis/Indication Diagnosis SNOMED-CT Code Diagnosis ICD10 Code Diagnosis Note [id number] [facility] [address] [place] [address] 05/06/2021 00:00:00 05/06/2021 18:11:54 [id number] [facility] [address] [place] [address] 06/03/2021 00:00:00 06/03/2021 18:20:29 [id number] [facility] [address] [place] [address] 07/23/2021 00:00:00 07/23/2021 16:35:18 [id number] [facility] [address] [place] [address] 08/13/2021 00:00:00 08/13/2021 11:53:42 [id number] [facility] [address] Formerly named [facility] [place] [address] 01/12/2022 00:00:00 01/12/2022 09:52:51 [id number] [facility] [address] [place] [address] 03/23/2022 00:00:00 03/23/2022 16:42:48 [id number] [facility] [address] [place] [address] 04/27/2022 00:00:00 04/27/2022 14:46:30 [id number] [facility] [address] [place] [address] 07/26/2022 00:00:00 07/26/2022 18:15:43 [id number] Cristel Ball NP [facility] [address] [place] [address] 02/07/2023 09:49:02 02/07/2023 11:47:29 Depressive disorder 11341851 F32.9 sertraline 100 mg, 1.5 tab po daily. Doing better. Clonazapam prn. Hyperlipidemia 37454425 E78.5 Atorvastat in 40 mg po daily. Tremor 41189610 R25.1 Primidone 50 mg 1/2 tab po daily. Anxiety 67223266 F41.9 Stable. Sertraline 100 mg, 1.5 tab po daily. Clonazepam prn. Anemia screening 4816846 07 Z13.0 Diabetes m ellitus screening 577567975 Z13.1 Thyroid di sorder screening 499896408 Z13.29 [id number] Cristel Ball NP [facility] [address] [address] 07/27/2023 13:56:14 07/27/2023 14:48:12 Hyperlipidemia 97234405 E78.5 Atorvastat in 40 mg po daily. Tremor 20588994 R25.1 Primidone 50 mg 1/2 tab po daily. Depressive disorder 4338 9007 F32.9 Sertraline 100 mg, 1.5 tab po daily. Doing better. Clonazapam prn (average one tablet daily) Anxiety 77882345 F41.9 Stable. Sertraline 100 mg, 1.5 tab po daily. Clonazepam prn. Essential hypertension 60733241 I10 Lisinopril 20 mg po nightly. Administra tion of influenza vaccine 89852399 Z23 Health Concerns Section Related Observation LastModified by Organization Detai ls LastModified Time None Recorded Concern Status LastModified by Organization Details LastModified Time None Recorded Advance Directives Directive Y: Payers Encounter Date Sequence Insurance Name Policy Number Policy Blood Covered Member ID Blood Member ID Guarantor Name 02/07/2023 1 [place] [id number] Huong Teague [id number] 12 Huong Teague 07/27/2023 1 [place] [id number] Huong Teague [id number] 12 Huong Teague Notes Date Note Type Note Provider Name and Address Organization Details Recorded Time 02/07/2023 text/html Here for med zhao ck up. Due for labs. Depression and anxiety- no longer seeing therapist. Sertraline 150 mg doing better. Clonazepam prn. Feeling better on higher dose. Sun is out. Started MVI. Has been pushing self to get out more. Works from home. Derm- went back to [facility] [employer]. Andreea said everything was ok.Did get mammogram. Weight- working on being more active. Got an E-bike. Plans to reduce weight. Left elbow pain and left muscle pain. Off and on, but constant for 1 week. Does use left arm to clean. Cristel Ball NP [address] [facility], [facility] [address], [place], [address], [employer] 02/07/2023 10:39:04 07/27/2023 text/html Here for med zhao ck up. Due for labs. Depression and anxiety- Sertraline 150 mg doing better. Clonazepam prn. Plans to call the therapist again. On melatonin for sleep- can't sleep otherwise. Weight- Diet not at goal. Aware needing to get back to well balanced meals. Lipid- atorvastatin 40 mg. Tremor- Dr. John retired. Hasn't been on primidone since May. Cristel Ball NP [address] [facility], [facility] [address], [place], [address], [employer] 07/27/2023 14:41:12 OBGyn Episode No OBEpisode recorded.
--- OUTSIDE RECORDS SUMMARY | 2024-12-05 00:25 | XMS_ITS | Clinical Summary ---
Author Organization [facility] Address [facility] [place] [address] Care Team Providers Care Doctor Of Nurse Anesthesia Name Role Phone Unavailable Primary Care Provider Unavailabl e Allergies No known active allergies Medications multi vitamin/minerals tablet Take 1 tablet by mouth daily. Active Cholecalciferol (VITAMIN D) 50 MCG (2000 UT) Tab Take 1 tablet by mouth daily. Active Phoenix-3 Fatty Acids (FISH OIL) 500 MG capsule Take 500 mg by mouth daily. Active sertraline 100 MG tabletIndications:D epression, unspecified depression type Take 1.5 tablets (150 mg total) by mouth daily. 135 tablet 1 1 Active clonazePAM 0.5 MG tabletIndications:G rief at loss of child Take 0.5-1 tablets (0.25-0.5 mg total) by mouth 3 (three) times daily as needed for Anxiety. 90 tablet 1 Active atorvastatin 20 MG tabletIndications:M ixed hyperlipidemia Take 1 tablet (20 mg total) by mouth nightly at bedtime. 90 tablet 1 1 Active Active Problems Problem Noted Date Diagnosed Date Reactive depression 12/13/2019 Grief at loss of child 09/24/2019 Hyperlipidemia 05/20/2018 BMI 36.0-36.9,adult 08/03/2017 Immunizations Name Administration Dates Next Due Influenza (Generic) 09/13/2016,06/25/2013 Tdap (Generic) 09/13/2016 Family History Medical History Relation Comments Diabetes Father Heart Maternal Grandfather None Mother Heart Paternal Grandmother Heart Attack Son Relation Status Comments Father Maternal Grandfather Mother Alive Paternal Grandmother Son Social History Tobacco Use Types Packs/Day Years Used Date Smoking Tobacco: Never Smokeless Tobacco: Never Tobacco Cessation:Counseling Given: No Alcohol Use Standard Drinks/Week Comments Yes 0 (1 standard drink = 0.6 oz pur e alcohol) Occasional AUDIT-C Answer Date Recorded Frequency of Alcohol Consumption Monthly or less 04/26/2019 Average Number of Drinks Not on file 019 Frequency of Binge Drinking Not on file 04/02 PHQ-2 Answer Date Recorded PHQ-2 Score - If the patient scores above 3, please move on to questions 3-9 2 03/08/2021 Education Answer Date Recorded What is the highest level of school you have completed or the highest degree you have received? Some college, no degree 04/26/2019 Comments No Sex and Gender Information Value Date Recorded Sex Assigned at Female 04/26/2019 1:09 PM CDT Legal Sex Female 7:00 PM CDT Gender Identity Female 04/26/2019 1:09 PM CDT Sexual Orientation Straight 04/26/2019 1: 09 PM CDT Last Filed Vital Signs Vital Sign Reading Time Taken Comments Blood Pressure 137/82 03/08/2021 8:04 AM CDT Pulse 75 03/08/2021 8:04 AM CDT Temperature 36.2 C (97.1 F) 03/08/2021 8:04 AM CDT Respiratory Rate 16 03/08/2021 8:04 AM CDT Oxygen Saturation 97% 03/08/2021 8:04 AM CDT Inhaled Oxygen Concentration - - Weight 89.2 kg (196 lb 9.6 oz) 03/08/2021 8:04 A M CDT Height 157.5 cm (5' 2 ) 03/08/2021 8:04 AM CDT Body Mass Index 35.96 03/08/2021 8:04 AM CDT Plan of Treatment Health Maintenance Due Date Last Done Comments Colorectal Cancer Screening Colonoscopy (10 Years) 1958 Hepatitis C 1976 Mammogram Screening 1998 Zoster Vaccines (1 of 2) 2008 Dexa Scan (General) 2023 Pneumococcal Vaccine: 65+ Years (1 of 1 - PCV) 2023 COVID-19 Vaccine (2023-2 5 season) 2024 Influenza Adult (#1) 2024 09/13/2016, 06/25/2013 DTaP, Tdap and Td Vaccines ( 2 - Td or Tdap) 09/13/2026 09/13/2016 RSV Immunization or 60+ Years (1 - 1-dose 75+ series) 2033 Meningococcal B Vaccine Aged Out No l onger eligible based on patient's age to complete this topic Meningococcal Vaccine Aged Out No milton kendrick eligible based on patient's age to complete this topic RSV Immunizations Under 20 Months Aged Out No longer eligible b ased on patient's age to complete this topic [place] [address] [place] [address] [facility]
[2024-12-05 06:29] VITALS: BP 136/106; PULSE 77; RESP 20; TEMP 35.7; O2SAT 100; BMI 35.4
[2024-12-05] MEDS: LACTATED RINGERS 1,000 ML 150 ML IV CONT (06:43)
[2024-12-05 06:47] VITALS: BP 136/82
--- NOTE | 2024-12-05 07:04 | WPDANESEPPF ---
Anes - Initial Pre Proc Eval Procedure: Operation Date: 12/05/24 07:30 Proposed Procedures p Colonoscopy - Markie Bertrand MD Date/Time: 12/05/24 07:04 Surgeon: Markie Bertrand MD Pre Op Diagnosis: hx of colon polyps Patient Data Age: 64 Gender: F Height: 1.57 m Weight: 87.8 kg Last Vital Signs Temp 35.7 C L 12/05/24 06:29 Pulse 77 12/05/24 06:29 Resp 20 12/05/24 06:29 BP 136/82 12/05/24 06:47 Pulse Ox 100 12/05/24 06:29 O2 Del Method Room Air 12/05/24 06:29 Allergies Allergy/AdvReac Type Severity Reaction Status Date / Time No Known Allergies Allergy Verified 12/05/24 06:24 Home Medications ?Medication ?Instructions ?Recorded ?Confirmed ?Type atorvastatin 40 mg tablet 40 mg PO DAILY #90 tabs 08/21/24 12/05/24 Rx primidone 50 mg tablet See Rx Instructions .Route 11/26/24 12/05/24 Rx .COMPLEX #90 tabs Patient hx anesthesia problems: none Family hx anesthesia problems: none Results Review: All pre-operative results and documents have been reviewed as part of the pre-operative evaluation. [facility] Past Medical History Medical History PTSD (post-traumatic stress disorder) Seasonal allergies Encounter for removal of skin lesion Depression Anxiety Hyperlipidemia Family History Family History Father Diabetes mellitus Mother Hypertension Depression Anxiety Grandparent Heart disease Thyroid disease Other Family history of malignant neoplasm Social History Social History Smoking status: Never smoker Alcohol intake: current Drinks per week: 1 Alcohol use details: Occasionally Substance use: never Substance use type: does not use Lack of Transportation: No Lack of Food: Never True Current Housing: I Have Housing Concerned About Future Housing: No Difficulty Paying Gas/Electric Bills: No Difficulty Paying for Meds: No Currently Unemployed: No Education: Trade/Vocational Certificate Difficulty w/ Childcare or Family Care: No Living arrangements: with family Occupation/Education: occupation Gender identity (if verbalized by the patient): Female Spiritual care concerns: No Anes - Eval Final PreProcedure Day of Procedure 12/05/24 07:04 Patient weight: obese Heart: regular rate and rhythm Lungs: clear to auscultation Airway: Mallampati scale class II Neurological: alert and oriented Last oral intake: >/= 8 hours ASA classification: III Emergent: no Anesthetic plan: proceed Anesthesia type and monitoring: general GIVS and standard monitoring Results Review: All pre-operative results and documents have been reviewed as part of the pre-operative evaluation. Informed Consent: The patient's anesthetic plan and its attendant risks and benefits were discussed with the patient/family/POA. Questions were solicited and answers provided to the satisfaction of the patient/family/POA.
--- NOTE | 2024-12-05 07:30 | PM.IMHP ---
H&P: HPI History of Present Illness Date/Time: 12/05/24 07:30 Chief Complaint: History of colon polyps Narrative: The patient has a history of colonic polyps, the last colonoscopy was 3 years ago. Review of Systems Review of Systems: All systems reviewed & are unremarkable except as noted in HPI and below PMFSH Past Medical History Medical History PTSD (post-traumatic stress disorder) Seasonal allergies Encounter for removal of skin lesion Depression Anxiety Hyperlipidemia Family History Family History Father Diabetes mellitus Mother Hypertension Depression Anxiety Grandparent Heart disease Thyroid disease Other Family history of malignant neoplasm Social History Social History Smoking status: Never smoker Alcohol intake: current Drinks per week: 1 Alcohol use details: Occasionally Substance use: never Substance use type: does not use Lack of Transportation: No Lack of Food: Never True Current Housing: I Have Housing Concerned About Future Housing: No Difficulty Paying Gas/Electric Bills: No Difficulty Paying for Meds: No Currently Unemployed: No Education: Trade/Vocational Certificate Difficulty w/ Childcare or Family Care: No Living arrangements: with family Occupation/Education: occupation Gender identity (if verbalized by the patient): Female Spiritual care concerns: No Meds Home Medications and Allergies Home Medications ?Medication ?Instructions ?Recorded ?Confirmed ?Type atorvastatin 40 mg tablet 40 mg PO DAILY #90 tabs 08/21/24 12/05/24 Rx primidone 50 mg tablet See Rx Instructions .Route 11/26/24 12/05/24 Rx .COMPLEX #90 tabs Allergies Allergy/AdvReac Type Severity Reaction Status Date / Time No Known Allergies Allergy Verified 12/05/24 06:24 Vital Signs Vital Signs - 24 hr 12/05/24 06:29 12/05/24 06:47 Temperature 96.3 F L Pulse Rate 77 Respiratory Rate 20 Blood Pressure 136/106 H 136/82 Pulse Oximetry 100 Oxygen Delivery Room Air Exam Const: General: cooperative and healthy appearing Resp: Effort & Inspection: normal respiratory effort and able to speak in complete sentences Auscultation: clear to auscultation bilaterally Cardio: Rate: regular rate Rhythm: regular rhythm GI: Inspection: normal to inspection GI Palp: No No hepatosplenomegaly present Auscultation: normal bowel sounds Rectal Exam: deferred Skin: General skin exam: normal color Psych: Appearance: grossly normal Mental Status: mental status grossly normal Assessment and Plan Assessment and plan (1) Colon cancer screening: Code(s): Z12.11 - Encounter for screening for malignant neoplasm of colon Status: Acute Assessment and Plan: The patient is deemed a good candidate for the procedure. Consent signed. Will proceed.
[2024-12-05 07:55] VITALS: BP 81/47; PULSE 63; RESP 18; O2SAT 100
[2024-12-05 08:05] VITALS: BP 100/55; PULSE 60; RESP 16; O2SAT 100
[2024-12-05 08:15] VITALS: BP 125/61; PULSE 60; RESP 17; O2SAT 100
== END 2024-12-05 08:32 | disposition home or self-care (01) ==
PROVIDERS: PCP Nurse Practitioner Family; Referring Provider Internal Medicine Gastroenterology; Visit Provider Internal Medicine Gastroenterology
PROC: 0DJD8ZZ Inspection of Lower Intestinal Tract, Via Natural or Artificial Opening Endoscopic (ICD-10-PCS; CPT 45378; principal; 2024-12-05 07:30)
DX: Z12.11 Encounter for screening for malignant neoplasm of colon (principal); D12.2 Benign neoplasm of ascending colon; E66.9 Obesity, unspecified; Z68.35 Body mass index [BMI] 35.0-35.9, adult
CPT/HCPCS: 45380; 88305; J2003; J2704; J7120

== ENCOUNTER 2024-12-19 11:43 | Outpatient (CLI) | payer MEDICARE, SELFPAY ==
--- NOTE | 2024-12-19 12:32 | ECG_ITS ---
Test Date: 2024-12-19 12:57:02 Measurements Intervals [place] Rate: 61 P: 10 NV: 163 QRS: -13 QRSD: 82 T: 0 QT: 430 QTc: 436 Interpretive Statements SINUS RHYTHM LOW QRS VOLTAGE IN PRECORDIAL LEADS [QRS DEFLECTION < 1.0 mV IN CHEST LEADS] MINIMAL VOLTAGE CRITERIA FOR LVH, CONSIDER NORMAL VARIANT [MEETS CRITERIA IN ONE OF: R(aVL), S(V1), R(V5), R(V5/V6)+S(V1)] No previous ECG available for comparison Electronically Signed On 12-19-2024 13:21:59 CDT by Isrrael Walter M.D.
--- OUTSIDE RECORDS SUMMARY | 2024-12-19 12:36 | XMS_ITS | Clinical Summary ---
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 Active Cholecalciferol (VITAMIN D) 50 MCG (2000 UT) Tab Take 1 tablet by mouth daily. Active [place]-3 Fatty Acids (FISH OIL) 500 MG capsule [...] patient's age to complete this topic [place] [address] [facility]
[2024-12-19 13:06] LABS: Basophils Percent Auto 0.5 % (0.2-1.2); Eosinophils Absolute Auto 0.1 K/mm3 (0-0.3); Eosinophils Percent Auto 1.3 % (0-4.4); Hematocrit 41.5 % (37.0-47.0); Hemoglobin 13.3 g/dL (12.0-15.0); Immature Granulocyte Absolute 0.02 K/mm3 (0.00-0.031); Immature Granulocyte Percent A 0.2 % (0-0.5); Lymphocytes Absolute Auto 2.73 K/mm3 (0.9-3.2); Lymphocytes Percent Auto 32.9 % (18.3-44.2); Mean Corpuscular Hemoglobin 29.2 pg (26-34); Monocytes Absolute Auto 0.6 K/mm3 (0.1-0.6); Monocytes Percent Auto 7.7 % (2.6-8.5); Neutrophils Absolute Auto 4.8 K/mm3 (1.3-6.7); Neutrophils Percent Auto 57.4 % (45.5-73.1); Platelet Count Result 236 k/mm3 (150-375); Red Blood Count 4.56 M/mm3 (4.2-5.4); Red Cell Distribution Width 12.8 % (11.5-14.5); White Blood Count 8.3 K/mm3 (4.5-10.0)
[2024-12-19 13:23] LABS: Anion Gap 13 mmol/L (4-12); Blood Urea Nitrogen 16 mg/dL (7-17); Calcium 10.1 mg/dL (8.4-10.2); Carbon Dioxide 24 mmol/L (22-30); Chloride 104 mmol/L (98-107); Estimated Glomerular Filt Rate > 60; Glucose 85 mg/dL (65-110); Potassium 4.3 mmol/L (3.4-5.0); Sodium 141 mmol/L (137-145)
== END 2024-12-19 11:44 | disposition home or self-care (01) ==
LOC: ANHSURGERY 11:49
PROVIDERS: PCP Nurse Practitioner Family; Visit Provider Surgery
DX: Z01.818 Encounter for other preprocedural examination (principal); I49.8 Other specified cardiac arrhythmias; K63.5 Polyp of colon; E78.5 Hyperlipidemia, unspecified
CPT/HCPCS: 36415; 80048; 85025; 86850; 86900; 86901; 93005

== ENCOUNTER 2024-12-27 12:37 | Inpatient (IN) | payer MEDICARE, SELFPAY ==
[2024-12-19 12:07] VITALS: BP 133/96; PULSE 68; RESP 12; TEMP 37.1; O2SAT 100; BMI 35.9
--- NOTE | 2024-12-19 12:23 | PC.NURSE ---
Report to the Outpatient Waiting Room, entrance under the green pavilion located off [facility], at time __0630am on date _12/27/24 . Planned Procedure Time: _0830am .? Time changes happen often and if your time is changed the preop area will call you the afternoon before. - You and your visitor will be asked to self-screen and do not enter if you have any COVID symptoms. Please call surgeon if you need to reschedule. - A mask is optional within the hospital at this time. Patients may have clear liquids day before and Bowel Prep & PO antibiotics/Ensure bundle per Dr Daly - No food 24 hours prior to surgery, clear liquids as per Dr Daly. Take only the following medications with a SIP of water on the morning of surgery: __NONE DO NOT STOP ANY OF YOUR OTHER PRESCRIPTION MEDICATIONS PRIOR TO SURGERY EXCEPT THE FOLLOWING Hold all vitamins and supplements for 3 days per anesthesiologist. Date of last dose is 12/23/24 Medications to discontinue per physician None Date to take last dose None Please no make-up, nail turkish, hairspray, perfume, deodorant, or body powder the day of surgery.? No jewelry (including any body piercings) or valuables the day of surgery, leave them at home.? Please take a shower or bath the night before, or the morning of, surgery with an antibacterial soap. & HIBICLEANSE per Dr DALY. ? Wear comfortable, loose fitting clothing.? - Jewelry must be removed prior to entering the operating room.? Rings and piercings that are not removed may be cut off. - The hospital will not accept responsibility for valuables.? - Please leave all valuables, including medications, at home the day of surgery. If you are going home after surgery, a licensed pile driver operator barge mounted must drive you home.? - NO public transportation without another adult if you receive anesthesia. - We recommend that an adult stay with you for 24 hours following discharge. - We also recommend that you do not drive, make important decision, drink alcoholic beverages, or take any drugs that were not prescribed by your health care provider for at least 24 hours after your discharge time. Follow any additional instructions given to you from your surgeon. Telephone instructions given to __Patient & and asked if any additional questions and then verbalized understanding. Patient advised to call surgeon office or pre surgery nurse liaison [phone] if any additional questions.
[2024-12-27] VITALS (12 sets, daily range): BP systolic 98–135; BP diastolic 54–97; PULSE 56–85; RESP 8–20; TEMP 36.1–38.2; O2SAT 95–100; BMI 35.5
--- OUTSIDE RECORDS SUMMARY | 2024-12-27 00:43 | XMS_ITS | Data Portability ---
Author Organization [place] - [facility], Main Office Address [address] [place] [address] Care Team Providers Care Manager Industrial Name Role Phone [facility] (LAB) Primary Ca re Provider Assessment No assessment recorded. Plan of Treatment Reminders Order Date Submit Date Provider Last Modified By Organization Details Last Modified Time Details Appointments None recorded. Lab TSH, serum, reflex free T4 [address] Outpatient Lab, [address] [place], [address], 3 08:54:22 drug screen, urine 2022 023 [facility] Outpatient Lab, [address] [place], [address], 3 14:06:22 lipid panel, serum 2022 023 [facility] Outpatient Lab, [address] [place], [address], 3 20:13:41 CMP, serum or plasma 2022 023 [facility] Outpatient Lab, [address] [place], [address], 3 20:13:46 HbA1c (hemoglobin A1c), blood [address] Outpatient Lab, [address] [place], [address], 3 10:09:06 CBC w/ auto diff 2022 023 [facility] Out[facility] Lab, [address] [place], [address], 20:08:56 Referral neurologist referral - eval and treat for tremor. Was a Naseer patient on primadone 2022 023 [email or web address] [facility] - Neurology, [address], [facility] [place], [address], 3 11:26:37 Procedures None recorded. Surgeries None recorded. Imaging None recorded. Medication Orders lisinopril 20 mg tablet 2022 023 [facility], [address] [facility] [address], [place], [address], 14:38:13 Patient TargetsNo targets recorded. Patient Instructions Encounter Date Encounter Id Patient Instructions Last Modified By Organization Details Last Modified Time 02/07/2023 [id number] FU in 4 mo, sooner as needed. Lipid, depression/anxiet y, tremor Not available 02/07/2023 10:37:45 07/27/2023 [id number] FU in 6 mo for weight,, htn, [...] 2016, 39([facility] ppl.1 ):s13 -s22 Not Available [facility] (Lab) [address] [place], [address], 03/24/2022 20:14:42 03/23/20 22 03/24/2022 FOLAT E, SERUM /PLAS MA folate 13.8 NG/mL 2.76-2 0.0 Not Available [facility] (Lab) [address] [place], [address], 03/24/2022 16:34:02 03/23/20 22 03/24/2022 VITAM IN B12 (PETRA RIYA ) vb12 561 pg/mL 239-93 1 Not Available [facility] (Lab) [address] [place], [address], 03/24/2022 16:33:57 03/23/20 22 03/24/2022 TSH W/REF ANDREI FT4 TSH with reflex free T4 0.762 uIU/m L 0.465- 4.680 Not Available [facility] (Lab) [address] [place], [address], 03/24/2022 16:11:40 03/23/20 22 03/24/2022 VITAM IN D 25-HY DROXY vd25oh 34.9 NG/mL 30-100 Vitam in D Statu s: Defic ient: <20 ng/mL Insuf ficie nt: 20-29 ng/mL Suffi cient : 30-10 0 ng/mL Not Available [facility] (Lab) [address] [place], [address], 03/24/2022 15:45:15 03/23/20 22 03/24/2022 CBC/C OMPLE TE BLD COUNT W/DIF F white blood cells 9.0 x10'3 /uL 4.2-10 .8 Not Available [facility] (Lab) [address] [place], [address], 03/24/2022 15:28:41 03/23/20 22 03/24/2022 CBC/C OMPLE TE BLD COUNT W/DIF F red blood cells 4.80 x10'6 /uL 3.80-5 .20 Not Available [facility] (Lab) [address] [facility] [place], [address], 03/24/2022 15:28:41 03/23/20 22 03/24/2022 CBC/C OMPLE TE BLD COUNT W/DIF F hemoglobin 13.7 g/dL 12.0-1 5.6 Not Available [facility] (Lab) [address] [place], [address], 03/24/2022 15:28:41 03/23/20 22 03/24/2022 CBC/C OMPLE TE BLD COUNT W/DIF F hematocrit 42.3 % 35.7-4 5.7 Not Available [facility] (Lab) [address] [place], [address], 03/24/2022 15:28:41 03/23/20 22 03/24/2022 CBC/C OMPLE TE BLD COUNT W/DIF F mean red cell volume 88.1 fL 82.0-9 9.0 Not Available [facility] (Lab) [address] [place], [address], 03/24/2022 15:28:41 03/23/20 22 03/24/2022 CBC/C OMPLE TE BLD COUNT W/DIF F mean red cell hemoglobin 28.5 pg 27.0-3 3.0 Not Available [facility] (Lab) [address] [place], [address], 03/24/2022 15:28:41 03/23/20 22 03/24/2022 CBC/C OMPLE TE BLD COUNT W/DIF F mean RBC HGB concentratio n 32.4 g/dL 31.0-3 6.0 Not Available [facility] (Lab) [address] [place], [address], 03/24/2022 15:28:41 03/23/20 22 03/24/2022 CBC/C OMPLE TE BLD COUNT W/DIF F red cell distribution width 13.3 % 11.8-1 5.5 Not Available [facility] (Lab) [address] [place], [address], 03/24/2022 15:28:41 03/23/20 22 03/24/2022 CBC/C OMPLE TE BLD COUNT W/DIF F platelets 239 x10'3 /uL 150-40 0 Not Available [facility] (Lab) [address] [place], [address], 03/24/2022 15:28:41 03/23/20 22 03/24/2022 CBC/C OMPLE TE BLD COUNT W/DIF F mean platelet volume 11.7 fL 9.0-12 .4 Not Available [facility] (Lab) [address] [place], [address], 03/24/2022 15:28:41 03/23/2003/24/2022 CBC/C OMPLE TE BLD COUNT W/DIF F neutrophils 56.2 % 39.0-7 2.0 Not Available [facility] (Lab) [address] [place], [address], 03/24/2022 15:28:41 03/23/2003/24/2022 CBC/C OMPLE TE BLD COUNT W/DIF F lymphocytes 30.5 % 16.0-4 7.0 Not Available [facility] (Lab) [address] [place], [address], 03/24/2022 15:28:41 03/23/20 22 03/24/2022 CBC/C OMPLE TE BLD COUNT W/DIF F monocytes 8.8 % 5.0-12 .0 Not Available [facility] (Lab) [address] [place], [address], 03/24/2022 15:28:41 03/23/20 22 03/24/2022 CBC/C OMPLE TE BLD COUNT W/DIF F eosinophils 3.2 % 1.0-7. 0 Not Available [facility] (Lab) [address] [place], [address], 03/24/2022 15:28:41 03/23/20 22 03/24/2022 CBC/C OMPLE TE BLD COUNT W/DIF F basophils 0.6 % 0.0-2. 0 Not Available [facility] (Lab) [address] [place], [address], 03/24/2022 15:28:41 03/23/20 22 03/24/2022 CBC/C OMPLE TE BLD COUNT W/DIF F immature granulocytes 0.7 % 0.00-0 .50 high Not Available [facility] (Lab) [address] [place], [address], 03/24/2022 15:28:41 03/23/20 22 03/24/2022 CBC/C OMPLE TE BLD COUNT W/DIF F neutrophils, absolute count 5.08 x10'3 /uL 1.5-8. 0 Not Available [facility] (Lab) [address] [place], [address], 03/24/2022 15:28:41 03/23/2003/24/2022 CBC/C OMPLE TE BLD COUNT W/DIF F lymphocytes, absolute count 2.76 x10'3 /uL 1.07-3 .43 Not Available [facility] (Lab) [address] [place], [address], 03/24/2022 15:28:41 03/23/20 22 03/24/2022 CBC/C OMPLE TE BLD COUNT W/DIF F monocytes, absolute count 0.80 x10'3 /uL 0.29-0 .99 Not Available [facility] (Lab) [address] [place], [address], 03/24/2022 15:28:41 03/23/20 22 03/24/2022 CBC/C OMPLE TE BLD COUNT W/DIF F eosinophils, absolute count 0.29 x10'3 /uL 0.02-0 .53 Not Available [facility] (Lab) [address] [place], [address], 03/24/2022 15:28:41 03/23/20 22 03/24/2022 CBC/C OMPLE TE BLD COUNT W/DIF F basophils, absolute count 0.05 x10'3 /uL 0.01-0 .08 Not Available [facility] (Lab) [address] [place], [address], 03/24/2022 15:28:41 03/23/20 22 03/24/2022 CBC/C OMPLE TE BLD COUNT W/DIF F immature granulocytes ,absolute 0.06 x10'3 /uL 0.00-0 .05 high Not Available [facility] (Lab) [address] [place], [address], 03/24/2022 15:28:41 03/23/20 22 03/24/2022 CBC/C OMPLE TE BLD COUNT W/DIF F nucleated red blood cells 0.0 % -0 Not Available [facility] (Lab) [address] [place], [address], 03/24/2022 15:28:41 03/23/20 22 03/24/2022 CBC/C OMPLE TE BLD COUNT W/DIF F NRBC# 0.00 x10'3 /uL Not Available [facility] (Lab) [address] [place], [address], 03/24/2022 15:28:41 03/23/20 22 03/24/2022 COMPR EHENS VIRIDIANA METAB OLIC PANEL sodium 135 mmol/ L 137-14 5 low Not Available [facility] (Lab) [address] [place], [address], 03/24/2022 15:22:13 03/23/20 22 03/24/2022 COMPR EHENS VIRIDIANA METAB OLIC PANEL potassium 4.1 mmol/ L 3.5-5. 1 Not Available [facility] (Lab) [address] [place], [address], 03/24/2022 15:22:13 03/23/20 22 03/24/2022 COMPR EHENS VIRIDIANA METAB OLIC PANEL chloride 103 mmol/ L 98-107 Not Available [facility] (Lab) [address] [place], [address], 03/24/2022 15:22:13 03/23/20 22 03/24/2022 COMPR EHENS VIRIDIANA METAB OLIC PANEL carbon dioxide 25 mmol/ L 22-30 Not Available [facility] (Lab) [address] [place], [address], 03/24/2022 15:22:13 03/23/20 22 03/24/2022 COMPR EHENS VIRIDIANA METAB OLIC PANEL anion gap 11.1 mmol/ L 14-22 low Not Available [facility] (Lab) [address] [place], [address], 03/24/2022 15:22:13 03/23/20 22 03/24/2022 COMPR EHENS VIRIDIANA METAB OLIC PANEL glucose 80 mg/dL 70-99 Not Available [facility] (Lab) [address] [place], [address], 03/24/2022 15:22:13 03/23/20 22 03/24/2022 COMPR EHENS VIRIDIANA METAB OLIC PANEL BUN 14 mg/dL 8-19 Not Available [facility] (Lab) [address] [place], [address], 03/24/2022 15:22:13 03/23/20 22 03/24/2022 COMPR EHENS VIRIDIANA METAB OLIC PANEL creatinine 0.71 mg/dL 0.66-1 .25 Not Available [facility] (Lab) [address] [place], [address], 03/24/2022 15:22:13 03/23/20 22 03/24/2022 COMPR EHENS VIRIDIANA METAB OLIC PANEL GFR >60 Refer ence Range : [place] ge GFR Healt hy Adult : >60 [...] or ethni c subgr oups, such as Hiswy nics. Outsi de the valid ated cece [...] s/kdo qi/gf r_cal culat or Not Available [facility] (Lab) [address] [place], [address], 03/24/2022 15:22:13 03/23/20 22 03/24/2022 COMPR EHENS VIRIDIANA METAB OLIC PANEL alkaline phosphatase 134 U/L 38-126 high Not Available [facility] (Lab) [address] [place], [address], 03/24/2022 15:22:13 03/23/20 22 03/24/2022 COMPR EHENS VIRIDIANA METAB OLIC PANEL alanine aminotransfe rase 20 U/L 0-35 Not Available [facility] (Lab) [address] [place], [address], 03/24/2022 15:22:13 03/23/20 22 03/24/2022 COMPR EHENS VIRIDIANA METAB OLIC PANEL aspartate aminotransfe rase 28 U/L 15-37 Not Available [facility] (Lab) [address] [place], [address], 03/24/2022 15:22:13 03/23/20 22 03/24/2022 COMPR EHENS VIRIDIANA METAB OLIC PANEL bilirubin, total 0.50 mg/dL 0.20-1 .30 Not Available [facility] (Lab) [address] [place], [address], 03/24/2022 15:22:13 03/23/20 22 03/24/2022 COMPR EHENS VIRIDIANA METAB OLIC PANEL calcium 10.0 mg/dL 8.4-10 .2 Not Available [facility] (Lab) [address] [place], [address], 03/24/2022 15:22:13 03/23/20 22 03/24/2022 COMPR EHENS VIRIDIANA METAB OLIC PANEL total protein 7.7 g/dL 6.3-8. 2 Not Available [facility] (Lab) [address] [place], [address], 03/24/2022 15:22:13 03/23/20 22 03/24/2022 COMPR EHENS VIRIDIANA METAB OLIC PANEL albumin 4.7 g/dL 3.0-4. 4 high Not Available [facility] (Lab) [address] [place], [address], 03/24/2022 15:22:13 03/23/20 22 03/24/2022 COMPR EHENS VIRIDIANA METAB OLIC PANEL globulin 3.0 g/dL 2.6-4. 2 Not Available [facility] (Lab) [address] [place], [address], 03/24/2022 15:22:13 03/23/20 22 03/24/2022 COMPR EHENS VIRIDIANA METAB OLIC PANEL A/G ratio 1.6 ratio 1.0-2. 0 Not Available [facility] (Lab) [address] [place], [address], 03/24/2022 15:22:13 03/23/20 22 03/24/2022 LIPID PANEL cholesterol 242 mg/dL 140-19 9 high NIH JOSE NSUS RECOM MENDA TION FOR CANDY STERO L: ADULT CHILD LOW RISK: <200 <170 BORDE RLINE : <200- 239 ----- HIGH RISK: >240 >200 Not Available [facility] (Lab) [address] [place], [address], 03/24/2022 15:22:03 03/23/20 22 03/24/2022 LIPID PANEL triglyceride s 220 mg/dL 0-150 high NIH JOSE NSUS REPOR T RECOM MENDA TION FOR TRIGL YCERI JOSE: ADULT CHILD LOW RISK: <150 ----- BODER LINE: 150-1 99 ----- HIGH RISK: >200 ----- Not Available [facility] (Lab) [address] [place], [address], 03/24/2022 15:22:03 03/23/20 22 03/24/2022 LIPID PANEL HDL cholesterol 52 mg/dL 40- Not Available [facility] (Lab) [address] [place], [address], 03/24/2022 15:22:03 03/23/20 22 03/24/2022 LIPID PANEL [...] WILL NOT BE REPOR LAZARA. Not Available [facility] (Lab) [address] [place], [address], 03/24/2022 15:22:03 02/08/2002/07/2023 CBC/C OMPLE TE BLD COUNT W/DIF F white blood cells 7.5 x10'3 /uL 4.2-10 .8 Not Available [facility] (Lab) [address] [place], [address], 02/07/2023 20:08:55 02/08/2002/07/2023 CBC/C OMPLE TE BLD COUNT W/DIF F red blood cells 4.58 x10'6 /uL 3.80-5 .20 Not Available [facility] (Lab) [address] [place], [address], 02/07/2023 20:08:55 02/08/2002/07/2023 CBC/C OMPLE TE BLD COUNT W/DIF F hemoglobin 13.1 g/dL 12.0-1 5.6 Not Available [facility] (Lab) [address] [place], [address], 02/07/2023 20:08:55 02/08/2002/07/2023 CBC/C OMPLE TE BLD COUNT W/DIF F hematocrit 40.6 % 35.7-4 5.7 Not Available [facility] (Lab) [address] [place], [address], 02/07/2023 20:08:55 02/08/20 23 02/07/2023 CBC/C OMPLE TE BLD COUNT W/DIF F mean red cell volume 88.6 fL 82.0-9 9.0 Not Available [facility] (Lab) [address] [place], [address], 02/07/2023 20:08:55 02/08/20 23 02/07/2023 CBC/C OMPLE TE BLD COUNT W/DIF F mean red cell hemoglobin 28.6 pg 27.0-3 3.0 Not Available [facility] (Lab) [address] [place], [address], 02/07/2023 20:08:55 02/08/20 23 02/07/2023 CBC/C OMPLE TE BLD COUNT W/DIF F mean RBC HGB concentratio n 32.3 g/dL 31.0-3 6.0 Not Available [facility] (Lab) [address] [place], [address], 02/07/2023 20:08:55 02/08/20 23 02/07/2023 CBC/C OMPLE TE BLD COUNT W/DIF F red cell distribution width 13.3 % 11.8-1 5.5 Not Available [facility] (Lab) [address] [place], [address], 02/07/2023 20:08:55 02/08/20 23 02/07/2023 CBC/C OMPLE TE BLD COUNT W/DIF F platelets 243 x10'3 /uL 150-40 0 Not Available [facility] (Lab) [address] [place], [address], 02/07/2023 20:08:55 02/08/20 23 02/07/2023 CBC/C OMPLE TE BLD COUNT W/DIF F mean platelet volume 11.6 fL 9.0-12 .4 Not Available [facility] (Lab) [address] [place], [address], 02/07/2023 20:08:55 02/08/20 23 02/07/2023 CBC/C OMPLE TE BLD COUNT W/DIF F neutrophils 56.4 % 39.0-7 2.0 Not Available [facility] (Lab) [address] [place], [address], 02/07/2023 20:08:55 02/08/20 23 02/07/2023 CBC/C OMPLE TE BLD COUNT W/DIF F lymphocytes 33.1 % 16.0-4 7.0 Not Available [facility] (Lab) [address] [place], [address], 02/07/2023 20:08:55 02/08/20 23 02/07/2023 CBC/C OMPLE TE BLD COUNT W/DIF F monocytes 7.7 % 5.0-12 .0 Not Available [facility] (Lab) [address] [place], [address], 02/07/2023 20:08:55 02/08/20 23 02/07/2023 CBC/C OMPLE TE BLD COUNT W/DIF F eosinophils 2.0 % 1.0-7. 0 Not Available [facility] (Lab) [address] [place], [address], 02/07/2023 20:08:55 02/08/20 23 02/07/2023 CBC/C OMPLE TE BLD COUNT W/DIF F basophils 0.5 % 0.0-2. 0 Not Available [facility] (Lab) [address] [place], [address], 02/07/2023 20:08:55 02/08/20 23 02/07/2023 CBC/C OMPLE TE BLD COUNT W/DIF F immature granulocytes 0.3 % 0.00-0 .50 Not Available [facility] (Lab) [address] [place], [address], 02/07/2023 20:08:55 02/08/20 23 02/07/2023 CBC/C OMPLE TE BLD COUNT W/DIF F neutrophils, absolute count 4.24 x10'3 /uL 1.5-8. 0 Not Available [facility] (Lab) [address] [place], [address], 02/07/2023 20:08:55 02/08/20 23 02/07/2023 CBC/C OMPLE TE BLD COUNT W/DIF F lymphocytes, absolute count 2.49 x10'3 /uL 1.07-3 .43 Not Available [facility] (Lab) [address] [place], [address], 02/07/2023 20:08:55 02/08/20 23 02/07/2023 CBC/C OMPLE TE BLD COUNT W/DIF F monocytes, absolute count 0.58 x10'3 /uL 0.29-0 .99 Not Available [facility] (Lab) [address] [place], [address], 02/07/2023 20:08:55 02/08/20 23 02/07/2023 CBC/C OMPLE TE BLD COUNT W/DIF F eosinophils, absolute count 0.15 x10'3 /uL 0.02-0 .53 Not Available [facility] (Lab) [address] [place], [address], 02/07/2023 20:08:55 02/08/20 23 02/07/2023 CBC/C OMPLE TE BLD COUNT W/DIF F basophils, absolute count 0.04 x10'3 /uL 0.01-0 .08 Not Available [facility] (Lab) [address] [place], [address], 02/07/2023 20:08:55 02/08/20 23 02/07/2023 CBC/C OMPLE TE BLD COUNT W/DIF F immature granulocytes ,absolute 0.02 x10'3 /uL 0.00-0 .05 Not Available [facility] (Lab) [address] [place], [address], 02/07/2023 20:08:55 02/08/20 23 02/07/2023 CBC/C OMPLE TE BLD COUNT W/DIF F nucleated red blood cells 0.0 % -0 Not Available [facility] (Lab) [address] [place], [address], 02/07/2023 20:08:55 02/08/20 23 02/07/2023 CBC/C OMPLE TE BLD COUNT W/DIF F NRBC# 0.00 x10'3 /uL Not Available [facility] (Lab) [address] [place], [address], 02/07/2023 20:08:55 02/08/20 23 02/07/2023 LIPID PANEL cholesterol 165 mg/dL 140-19 9 NIH JOSE NSUS RECOM MENDA TION FOR CANDY STERO L: ADULT CHILD LOW RISK: <200 <170 BORDE RLINE : <200- 239 ----- HIGH RISK: >240 >200 Not Available [facility] (Lab) [address] [place], [address], 02/07/2023 20:13:41 02/08/20 23 02/07/2023 LIPID PANEL triglyceride s 163 mg/dL 0-150 high NIH JOSE NSUS REPOR T RECOM MENDA TION FOR TRIGL YCERI JOSE: ADULT CHILD LOW RISK: <150 ----- BODER LINE: 150-1 99 ----- HIGH RISK: >200 ----- Not Available [facility] (Lab) [address] [place], [address], 02/07/2023 20:13:41 02/08/20 23 02/07/2023 LIPID PANEL HDL cholesterol 45 mg/dL 40- Not Available [facility] (Lab) [address] [place], [address], 02/07/2023 20:13:41 02/08/20 23 02/07/2023 LIPID PANEL [...] WILL NOT BE REPOR LAZARA. Not Available [facility] (Lab) [address] [place], [address], 02/07/2023 20:13:41 02/08/20 23 02/07/2023 COMPR EHENS VIRIDIANA METAB OLIC PANEL sodium 138 mmol/ L 137-14 5 Not Available [facility] (Lab) [address] [place], [address], 02/07/2023 20:13:46 02/08/20 23 02/07/2023 COMPR EHENS VIRIDIANA METAB OLIC PANEL potassium 4.3 mmol/ L 3.5-5. 1 Not Available [facility] (Lab) [address] [place], [address], 02/07/2023 20:13:46 02/08/20 23 02/07/2023 COMPR EHENS VIRIDIANA METAB OLIC PANEL chloride 104 mmol/ L 98-107 Not Available [facility] (Lab) [address] [place], [address], 02/07/2023 20:13:46 02/08/20 23 02/07/2023 COMPR EHENS VIRIDIANA METAB OLIC PANEL carbon dioxide 25 mmol/ L 22-30 Not Available [facility] (Lab) [address] [place], [address], 02/07/2023 20:13:46 02/08/20 23 02/07/2023 COMPR EHENS VIRIDIANA METAB OLIC PANEL anion gap 13.3 mmol/ L 14-22 low Not Available [facility] (Lab) [address] [place], [address], 02/07/2023 20:13:46 02/08/20 23 02/07/2023 COMPR EHENS VIRIDIANA METAB OLIC PANEL glucose 94 mg/dL 70-99 Not Available [facility] (Lab) [address] [place], [address], 02/07/2023 20:13:46 02/08/20 23 02/07/2023 COMPR EHENS VIRIDIANA METAB OLIC PANEL BUN 15 mg/dL 8-19 Not Available [facility] (Lab) [address] [place], [address], 02/07/2023 20:13:46 02/08/20 23 02/07/2023 COMPR EHENS VIRIDIANA METAB OLIC PANEL creatinine 0.72 mg/dL 0.66-1 .25 Not Available [facility] (Lab) [address] [place], [address], 02/07/2023 20:13:46 02/08/20 23 02/07/2023 COMPR EHENS VIRIDIANA METAB OLIC PANEL GFR >60 Refer ence Range : [place] ge GFR Healt hy Adult : >60 [...] calcu lator is avail able on the [facility] websi te: [email or web address] :[email or web address] rg/pr ofess ional s/kdo qi/gf r_cal culat or Not Available [facility] (Lab) [address] [place], [address], 02/07/2023 20:13:46 02/08/20 23 02/07/2023 COMPR EHENS VIRIDIANA METAB OLIC PANEL alkaline phosphatase 126 U/L 38-126 Not Available [facility] (Lab) [address] [place], [address], 02/07/2023 20:13:46 02/08/20 23 02/07/2023 COMPR EHENS VIRIDIANA METAB OLIC PANEL alanine aminotransfe rase 24 U/L 0-35 Not Available [facility] (Lab) [address] [place], [address], 02/07/2023 20:13:46 02/08/20 23 02/07/2023 COMPR EHENS VIRIDIANA METAB OLIC PANEL aspartate aminotransfe rase 26 U/L 15-37 Not Available [facility] (Lab) [address] [place], [address], 02/07/2023 20:13:46 02/08/20 23 02/07/2023 COMPR EHENS VIRIDIANA METAB OLIC PANEL bilirubin, total 0.40 mg/dL 0.20-1 .30 Not Available [facility] (Lab) [address] [place], [address], 02/07/2023 20:13:46 02/08/20 23 02/07/2023 COMPR EHENS VIRIDIANA METAB OLIC PANEL calcium 9.9 mg/dL 8.4-10 .2 Not Available [facility] (Lab) [address] [place], [address], 02/07/2023 20:13:46 02/08/20 23 02/07/2023 COMPR EHENS VIRIDIANA METAB OLIC PANEL total protein 7.2 g/dL 6.3-8. 2 Not Available [facility] (Lab) [address] [place], [address], 02/07/2023 20:13:46 02/08/20 23 02/07/2023 COMPR EHENS VIRIDIANA METAB OLIC PANEL albumin 4.5 g/dL 3.0-4. 4 high Not Available [facility] (Lab) [address] [place], [address], 02/07/2023 20:13:46 02/08/20 23 02/07/2023 COMPR EHENS VIRIDIANA METAB OLIC PANEL globulin 2.7 g/dL 2.6-4. 2 Not Available [facility] (Lab) [address] [place], [address], 02/07/2023 20:13:46 02/08/20 23 02/07/2023 COMPR EHENS VIRIDIANA METAB OLIC PANEL A/G ratio 1.7 ratio 1.0-2. 0 Not Available [facility] (Lab) [address] [place], [address], 02/07/2023 20:13:46 02/08/20 23 02/07/2023 TSH W/REF ANDREI FT4 TSH with reflex free T4 2.050 uIU/m L 0.465- 4.680 Not Available [facility] (Lab) [address] [place], [address], 02/07/2023 20:29:53 02/08/20 23 02/07/2023 HEMOG LOBIN A1C HA1C 5.6 % 4.0-6. 0 Diabe tori Veena villanueva Crite risa: <5.7% Consi stent with absen ce of diabe tori 5.7-6 .4% Consi stent with incre ased risk for diabe tori (pred iabet es) >OR=6 .5% Consi stent with diabe tori REFER ENCE: Diabe tori Care 2016, 39([place] ppl.1 ):s13 -s22 Not Available [facility] ([facility]) [address] [place], [address], 02/07/2023 21:28:40 12/08/19 23 12/07/2022 MAMMO , veena villanueva, digit al, bilat eral No observ ation record ed. [email or web address] [facility] [address], [place], [address], 12/12/2022 16:39:42 Result Notes None recorded. Problems Name Problem SNOMED Code Status Onset Date Resolution Date Notes Provider Name and Address Organization Details Recorded Time Hypercholester olemia 82598405 Active 2020 Not Available [facility] 3 23:30:25 Tremor 91960422 Active 2020 Not Available [facility] 3 23:30:25 Depressive disorder 54531293 Active 2020 Not Available [facility] 3 23:30:25 Anxiety 54114742 Active 2020 Not Available [facility] 3 23:30:25 Hyperlipidemia 56151916 Active 2020 Not Available [facility] 3 23:30:25 Essential hypertension 24266679 Active 2022 Cristel Ball NP [address], [facility] [address], [place], [address] , [facility] [address] 3 14:37:25 Notes:squamous cell skin can cer back 10/2021 Problem Notes None recorded. Procedures Surgical History Date Name Laterality Status Provider Name and Address Organization Details Recorded Time 3 Most Recent Mammogram completed Cristel Gonzalez RN [facility] 02/07/2023 10:02:21 Date of Last Pap Smear completed Not Available [facility] 11/30/2022 23:28:57 Imaging Results Imaging Date Name Status LastModified by Organiz ation Details LastModified Time 12/07/2022 MAMMO, screening, digital, bilateral completed [id number] [facility] [address], [place], [address], 12/12/2022 16:39:42 Procedure Notes None recorded. Medical [...] % 99 % 64 /min 97.5 [degF] 77713.0 7 g 126 mm[Hg] 76 mm[Hg] Not Available [facility] 3 23:30:02 Date Recorded Body mass index (BMI) Body height Oxygen saturation Oxygen saturation in Arterial blood by Pulse oximetry Heart rate Body temperature Body weight Systolic blood pressure Diastolic blood pressure Provider Name and Address Organization Details Last Updated DateTime 2 35.4 kg/m2 157.48 cm 98 % 98 % 76 /min 98.2 [degF] 51317.4 3 g 122 mm[Hg] 80 mm[Hg] Not Available [facility] 3 23:30:02 Date Recorded Body height Body mass index (BMI) Body weight Body temperature Heart rate Heart rate Respiratory rate Oxygen saturation Oxygen saturation in Arterial blood by Pulse oximetry Pain severity - 0-10 verbal numeric rating [Score] - Reported Systolic blood pressure Diastolic blood pressure Provider Name and Address Organization Details Last Updated DateTime 3 157.48 cm 36.6 kg/m2 25227.4 7 g 96.9 [degF] 67 /min 67 /min 16 /min 97 % 97 % 0 158 mm[Hg] 86 mm[Hg] Cristel Gonzalez RN [facility] [employer] [facility] 3 10:00:33 Date Recorded Body height Body mass index (BMI) Body weight Body temperature Heart rate Respiratory rate Oxygen saturation Oxygen saturation in Arterial blood by Pulse oximetry Pain severity - 0-10 verbal numeric rating [Score] - Reported Systolic blood pressure Diastolic blood pressure Provider Name and Address Organization Details Last Updated DateTime 3 157.48 cm 36.3 kg/m2 80161.0 9 g 97 [degF] 62 /min 16 /min 98 % 98 % 0 170 mm[Hg] 100 mm[Hg] Cristel Gonzalez RN [facility] Identiv [facility] 3 14:10:08 Social History Question Answer Notes LastModified by Organization Details LastModified Time Tobacco Smoking Status Never Smoker Not Available [facility] 11/30/2022 23:28:34 Do You Have An Advance Directive? Yes Information not available 02/07/2023 What Is Your Level Of Alcohol Consumption? Occasional MIGRATION.030 [id number] Information not available 11/30/2022 Do You Wear [...] While That Case Was Ill? No MIGRATION.030 [id number] Information not available 11/30/2022 In The 14 Days Before Symptom Onset, Have You Had Close Contact With A Person Who Is Under Investigation For COVID-19 While That Person Was Ill? No MIGRATION.0301 [id number] Information not available 11/30/2022 Are You Currently Employed? Yes Information not available 02/07/2023 What Type Of Diet Are You Following? 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 Yes Son Passed (2019) MIGRATION.030 [id number] Information not available 11/30/2022 Do You Use Insect Repellent Routinely? Yes MIGRATION.030 085112 Information not available 11/30/2022 Where Do You Live? SingleLevelHouse Information not available 02/07/2023 Do You Have A Medical Power Of Senior Drafter? Yes Information not available 02/07/2023 Have You Ever Been Counseled For Unhealthy Alcohol Use? No MIGRATION.0301 [id number] Information not available 11/30/2022 Do You Have Any Pets? No MIGRATION.0301 [id number] Information not available 11/30/2022 What Is Your Relationship Status? MIGRATION.030 182372 Information not available 11/30/2022 Do You Use Your Seat Belt Or Car Seat Routinely? Yes MIGRATION.0301 [id number] Information not available 11/30/2022 Do You Have Smoke And Carbon Monoxide Detectors In Your Home? Yes MIGRATION.0301 [id number] Information not available 11/30/2022 Are There Any Smokers In Your House? No MIGRATION.0301 015206 Information not available 11/30/2022 Do You Participate In Social Media? Yes MIGRATION.0301 759236 Information not available 11/30/2022 Do You Feel Stressed (tense, Restless, Nervous, Or Anxious, Or Unable To Sleep At Night)? [id number] MIGRATION.0301 073534 Information not available 11/30/2022 Do You Use Any Illicit Or Recreational Drugs? No MIGRATION.0301 930681 Information not available 11/30/2022 Do You Use Sunscreen Routinely? Yes MIGRATION.0301 241606 Information not available 11/30/2022 Has Tobacco Cessation Counseling Been Provided? No MIGRATION.0301 [id number] Information not available 11/30/2022 Have You Recently Traveled Abroad? No MIGRATION.0301 060531 Information not available 11/30/2022 Do You Have Any Dietary Restrictions? No MIGRATION.0301 426847 Information not available 11/30/2022 Do You Or Have You Ever Used Any Other Forms Of Tobacco Or Nicotine? No MIGRATION.0301 134645 Information not available 11/30/2022 Sex: Unknown Functional Status Question Answer Note LastModified by Organization D etails LastModified Time What is your exercise level? None Information not available 07/27/2023 Mental Status None recorded. Family History Relationship Description Onset Age of this Age Resolved Age Notes LastModified by Organization Details LastModified Time Father Diabetes mellitus MIGRATION.312 [id number] Not available 11/30/2022 23:29:02 Paternal Grandmother Heart disease MIGRATION.009 [id number] Not available 11/30/2022 23:29:02 Son Attack Heart: Deceas ed MIGRATION.238 [id number] Not available 11/30/2022 23:29:02 Maternal Grandfather Attack Heart: Deceas ed MIGRATION.427 [id number] Not available 11/30/2022 23:29:02 Medical History Condition [...] HAVE YOU BEEN HOSPITALIZED OR SEEN IN [facility] IN THE PAST YEAR ? [...] virus, quadrivalent, PF 07/27/2022 completed Not Available [facility] 3 23:31:53 Influenza, split virus, quadrivalent, PF 07/23/2021 completed Not Available [facility] 3 23:31:53 Influenza, split virus, quadrivalent, PF 07/27/2023 completed Cristel Gonzalez RN [facility], [facility] [employer] [facility] 07/27/2023 14:56:23 Past Encounters Encounter ID Performer Location Encounter Start Date Encounter Closed Date Diagnosis/Indication Diagnosis SNOMED-CT Code Diagnosis ICD10 Code Diagnosis Note [id number] [facility] [address] [place] [address] 05/06/2021 00:00:00 05/06/2021 18:11:54 [id number] [facility] [address] [place] [address] 06/03/2021 00:00:00 06/03/2021 18:20:29 [id number] [facility] [address] [place] [address] 07/23/2021 00:00:00 07/23/2021 16:35:18 [id number] [facility] [address] [place] [address] 08/13/2021 00:00:00 08/13/2021 11:53:42 [id number] [facility] [address] [facility] [address] 01/12/2022 00:00:00 01/12/2022 09:52:51 [id number] [facility] [address] [place] [address] 03/23/2022 00:00:00 03/23/2022 16:42:48 [id number] [facility] [address] [place] [address] 04/27/2022 00:00:00 04/27/2022 14:46:30 [id number] [facility] [address] [place] [address] 07/26/2022 00:00:00 07/26/2022 18:15:43 [id number] Cristel Ball NP [facility] [address] [place] [address] 02/07/2023 09:49:02 02/07/2023 11:47:29 Depressive disorder 54680744 F32.9 sertraline 100 mg, 1.5 tab po daily. Doing better. Clonazapam prn. Hyperlipidemia 53399430 E78.5 Atorvastat in 40 mg po daily. Tremor 98806126 R25.1 Primidone 50 mg 1/2 tab po daily. Anxiety 65779359 F41.9 Stable. Sertraline 100 mg, 1.5 tab po daily. Clonazepam prn. Anemia screening 9926087 07 Z13.0 Diabetes m ellitus screening 883065185 Z13.1 Thyroid di sorder screening 095519714 Z13.29 [id number] Cristel Ball NP [facility] [address] [address] 07/27/2023 13:56:14 07/27/2023 14:48:12 Hyperlipidemia 41290805 E78.5 Atorvastat in 40 mg po daily. Tremor 25500979 R25.1 Primidone 50 mg 1/2 tab po daily. Depressive disorder 5559 9007 F32.9 Sertraline 100 mg, 1.5 tab po daily. Doing better. Clonazapam prn (average one tablet daily) Anxiety 73809275 F41.9 Stable. Sertraline 100 mg, 1.5 tab po daily. Clonazepam prn. Essential hypertension 34401873 I10 Lisinopril 20 mg po nightly. Administra tion of influenza vaccine 11760432 Z23 Health Concerns Section Related Observation LastModified by Organization Detai ls LastModified Time None Recorded Concern Status LastModified by Organization Details LastModified Time None Recorded Advance Directives Directive Y: Payers Encounter Date Sequence Insurance Name Policy Number Policy Blood Covered Member ID Blood Member ID Guarantor Name 02/07/2023 1 [place] [id number] Huong Teague [id number] Leslie Teague 07/27/2023 1 [place] [id number] Huong Teague [id number] Huong Teague Notes Date Note Type Note [...] Works from home. Derm- went back to mid magdy [employer]. Andreea said everything was ok.Did get mammogram. Weight- working on being more active. Got an E-bike. Plans to reduce weight. Left elbow pain and left muscle pain. Off and on, but constant for 1 week. Does use left arm to clean. Cristel Ball NP [address], [facility] [address], [place], [address], [place] [facility] [employer] 02/07/2023 10:39:04 07/27/2023 text/html Here for med [...] primidone since May. Cristel Ball NP [address], [facility] [address], [place], [address], [employer] [facility] [employer] 07/27/2023 14:41:12 OBGyn Episode No OBEpisode recorded.
--- OUTSIDE RECORDS SUMMARY | 2024-12-27 00:43 | XMS_ITS | Clinical Summary ---
Author Organization [facility] Address [facility] [place] [address] Care Team Providers Care Special Forces Specialist Name Role Phone Unavailable Primary Care Provider Unavailabl e Allergies No known active allergies Medications multi vitamin/minerals tablet Take 1 tablet by mouth daily. Active Cholecalciferol (VITAMIN D) 50 MCG (2000 UT) Tab Take 1 tablet by mouth daily. Active [place]-3 Fatty Acids (FISH OIL) 500 MG capsule [...] patient's age to complete this topic Insurance [address] [address] [facility]
--- NOTE | 2024-12-27 07:29 | WPDHPUPDATE1 ---
History and Physical Update Update Date/Time: 12/27/24 07:29 History and Physical has been reviewed, including an updated exam of the patient. There are NO changes in the patient's condition. Risks, benefits, and alternatives have been discussed and questions answered. Patient agrees to proceed with procedure.
[2024-12-27] MEDS: LACTATED RINGERS 1,000 ML 30 ML IV CONT ×2 (07:32→11:24)
[2024-12-27] MEDS: KETOROLAC 15 MG/ML VIAL (*BKC) IV PUSH (07:32)
[2024-12-27] MEDS: ALVIMOPAN 12 MG CAPSULE PO (07:52)
[2024-12-27] MEDS: ACETAMINOPHEN 500 MG TABLET 1000 MG PO (07:52)
--- NOTE | 2024-12-27 07:56 | P.PNAN_ITS ---
Anes - Initial Pre Proc Eval Procedure: Operation Date: 12/27/24 08:30 Proposed Procedures p Hand Assisted Laparoscopic Right Colectomy - Jose David Candelario MD Date/Time: 12/27/24 07:56 Surgeon: Jose David Candelario MD Pre Op Diagnosis: ascending colon polyp Patient Data Age: 64 Gender: F Height: 1.57 m Weight: 88.2 kg Last Vital Signs Temp 36.1 C L 12/27/24 07:28 Pulse 74 12/27/24 07:28 Resp 12 12/19/24 12:07 BP 135/97 H 12/27/24 07:28 Pulse Ox 100 12/27/24 07:28 O2 Del Method Room Air 12/27/24 07:28 Allergies Allergy/AdvReac Type Severity Reaction Status Date / Time No Known Allergies Allergy Verified 12/27/24 07:27 Home Medications ?Medication ?Instructions ?Recorded ?Confirmed ?Type atorvastatin 40 mg tablet 40 mg PO DAILY #90 tabs 08/21/24 12/27/24 Rx ciprofloxacin HCl 500 mg tablet See Rx Instructions .Route 12/09/24 12/27/24 Rx .COMPLEX #1 tablet metronidazole 500 mg tablet 500 mg PO .COMPLEX #3 tabs 12/09/24 12/27/24 Rx primidone 50 mg tablet 50 mg PO HS 12/19/24 12/27/24 History Patient hx anesthesia problems: none Family hx anesthesia problems: none Results Review: All pre-operative results and documents have been reviewed as part of the pre- operative evaluation. [facility] Past Medical History Medical History PTSD (post-traumatic stress disorder) Seasonal allergies Encounter for removal of skin lesion Depression Anxiety Hyperlipidemia Family History Family History Father Diabetes mellitus Mother Hypertension Depression Anxiety Grandparent Heart disease Thyroid disease Other Family history of malignant neoplasm Social History Social History Smoking status: Never smoker Alcohol intake: current Drinks per week: 1 Alcohol use details: Occasionally Substance use: never Substance use type: does not use Lack of Transportation: No Lack of Food: Never True Current Housing: I Have Housing Concerned About Future Housing: No Difficulty Paying Gas/Electric Bills: No Difficulty Paying for Meds: No Currently Unemployed: No Education: Trade/Vocational Certificate Difficulty w/ Childcare or Family Care: No Living arrangements: with family Additional living arrangements comments: Occupation/Education: occupation Gender identity (if verbalized by the patient): Female Spiritual care concerns: No Anes - Eval Final PreProcedure Day of Procedure 12/27/24 07:56 Patient weight: obese Heart: regular rate and rhythm Lungs: clear to auscultation Airway: Mallampati scale class II Neurological: alert and oriented Last oral intake: >/= 8 hours ASA classification: III Emergent: no Anesthetic plan: proceed Anesthesia type and monitoring: general ETT and standard monitoring Results Review: All pre-operative results and documents have been reviewed as part of the pre- operative evaluation. Informed Consent: The patient's anesthetic plan and its attendant risks and benefits were discussed with the patient/family/POA. Questions were solicited and answers provided to the satisfaction of the patient/family/POA.
[2024-12-27] MEDS: ceFAZolin 2 GM/D5W 50 ML 2 GM/50 ML BAG IVPB (08:33)
[2024-12-27] MEDS: metroNIDAZOLE 500 MG/ISO 100ML 500 MG/100 ML BAG 100 MG IVPB (08:53)
[2024-12-27] MEDS: BUPIVACAINE/EPINEPHRINE 0.5% 30 ML VIAL INFILTRATE (09:05)
--- NOTE | 2024-12-27 11:45 | P.OP_ITS ---
Procedure Note - Detailed Date of Procedure 12/27/24 Pre-op Diagnosis ascending colon polyp Post-op Diagnosis Same Procedure Performed Hand access laparoscopic right colectomy with hand-sewn ileotransverse anastomosis Surgeon Jose David Candelario MD Social Sciences Instructor Paulina Covington [facility] Anesthesia General and Local Indications Patient had screening colonoscopy earlier this month. There was a polyp in the ascending colon that was not able to be removed colonoscopically. Biopsy showed this to be a tubular adenoma. It was tattooed. Patient is taken to surgery at this time for hand access laparoscopic right colectomy for polyp removal. Findings Tattoo was easily seen in the proximal ascending colon. No other significant abnormalities were noted. Description of Procedure Patient was taken to surgery and induced into general anesthesia. Alexandre catheter was placed. The abdomen is prepped and draped. Hand access port was made just above the umbilicus. Local was infiltrated prior to any incisions. Incision was made dissection was carried down through the subcutaneous. Additional local was infiltrated into the fascia. The fascia was then opened and extended the length of the hand access wound. Peritoneum was opened and extended as well. The Aarti wound guard was then placed. The GelPort was placed. With the hand in the abdomen, local was infiltrated and a 5 mm port was placed in the right lower quadrant just above the inguinal ligament. Insufflation was carried out. A 5 mm port was placed just off the midline in the right lower abdomen but higher than the initial port. A left lower quadrant 5 mm trocar was also placed. Patient was placed in Trendelenburg. Cecum was noted as was the tattoo. Putting some traction on the distal ileum, I used the LigaSure for all dissection. The peritoneum was incised at the root of the mesentery to the distal ileum. This was continued across the distal ileum and under the cecum. Appendix was noted and appeared normal. I then was able to dissect in the retroperitoneum elevating the mesenteric vessels to the ascending colon in a medial to lateral dissection. The mesentery was long but very thickened. There was some bleeding using the LigaSure on the mesenteric vessels which was difficult to control as vessel seem to want a retract. Eventually we dissected to the ileocolic artery near its base. The ileocolic artery was dissected circumferentially so it was well exposed. Ileocolic artery was divided using the LigaSure without any bleeding. We then continued dividing the mesentery to the ascending colon. The lateral peritoneal attachments to the ascending colon were divided as well. We then reached the hepatic flexure and beginning of the transverse colon. The mesentery here was also divided and bleeding was encountered again even though the LigaSure was being used with every bite. Eventually this was controlled as well. The a patio colic ligament was divided so that the transverse colon was mobile. We continued our dissection to mobilize additional transverse colon mesentery. Eventually we had adequate mobility to stop insufflation. The GelPort was removed and we eviscerated the ascending colon, proximal transverse colon, and distal ileum. The mesentery to the distal ileum and to the proximal transverse colon was divided using the LigaSure. I then divided the distal ileum with the TLC 75 stapler. I divided the proximal transverse colon with a TLC 75 stapler. The ascending colon specimen was then passed off to pathology in formalin. I ensured that the mesentery to the distal ileum was not twisted. The distal ileum was placed in proximity to the proximal transverse colon. From there a uvoq-an-myjo but functional end-to-end anastomosis was created using a 2 layer hand-sewn anastomosis. The posterior outer layer of interrupted 4-0 silk Lembert sutures was placed. The 2 ends of bowel were then opened opposite each other. Bidirectional running 4-0 chromic suture was used to approximate the bowel for the posterior and anterior inner layers, tying the chromic suture at the conclusion. The anastomosis was then completed with an anterior outer layer of 4-0 silk Lembert sutures in interrupted fashion as well. Anastomosis looked quite good. It was dropped back into the abdomen. We replaced the GelPort and then reinsufflated the abdomen. Looking in the right collar guidewire and the right upper quadrant, there was quite a bit of old blood and clot. I removed this with a combination laparotomy sponges and some suction. There were a couple of bleeding areas on the retroperitoneum which I used the LigaSure and stop this bleeding. We checked an recheck this area and no other sign of bleeding there was noted. I looked again at the anastomosis and the colonic staple line was oozing. We checked for any other areas of bleeding or problems and saw none. We then stopped insufflation again and removed the GelPort. I brought the anastomosis up and out of the hand access port. From there I used the cautery and stopped any bleeding from the colonic staple line. There was no bleeding from the distal ileal staple line. All looked dry and satisfactory. I then dropped the anastomosis back in the abdomen and checked that there was no twisting or other problems. The omentum was placed over the anastomosis. We then removed the GelPort and the trocar sleeves. A clean closing tray was used and the surgical team changed gown and gloves. The hand access port was closed with bidirectional running 0 PDS suture. Interrupted subcutaneous 3-0 Vicryl howell tures were then placed. Interrupted subcuticular 4-0 Vicryl sutures were then placed to loosely approximate the skin. The hand access incision as well as all the trocar sites were then closed at the skin level with running 4-0 Monocryl subcuticular skin suture. All wounds were dressed with Exofin surgical adhesive. The patient was then awakened. Alexandre catheter was removed. She was extubated and taken to recovery in good condition. Sponge and needle counts were correct x2. Estimated Blood Loss -200 Drains No Packing No Pathology Yes (Right colectomy specimen) Complications None Condition Stable Disposition PACU [facility] Billing Surgery - Charge Forward: Surgery Billing (Hand access laparoscopic right colectomy)
[2024-12-27] MEDS: fentaNYL CITRATE INJ (*CRX) 100 MCG/2 ML VIAL 25 MCG IV PUSH ×2 (12:16→12:24)
--- NOTE | 2024-12-27 12:40 | ADMGEN ---
This patient, Huong Teague, was admitted to Medical Room 247-. Patient/family oriented to hospital policies and general routines including ID bracelet, bed and alarms, visiting hours, pain management, procedures, bathroom and other care routines, personal items, smoking policy, room service/diet, and visiting hours. Information on how to activate the Rapid Response Team has been discussed. Patient/Family are encouraged to report perceived risks to care and to ask questions if they do not understand what they are told or what they should do.
[2024-12-27] MEDS: LACTATED RINGERS 1,000 ML 100 ML IV CONT ×2 (12:57→22:59)
[2024-12-27] MEDS: oxyCODONE/ACETAMINOPHEN (*CRX) 5-325 MG TABLET 1 TABLET PO (16:24)
[2024-12-27] MEDS: ATORVASTATIN 40 MG TABLET PO (21:05)
[2024-12-27] MEDS: PRIMIDONE 50 MG TABLET PO (21:05)
[2024-12-27] MEDS: FAMOTIDINE 20 MG/2 ML VIAL IV PUSH (21:54)
[2024-12-28] MEDS: oxyCODONE/ACETAMINOPHEN (*CRX) 5-325 MG TABLET 1 TABLET PO ×4 (01:09→20:09)
[2024-12-28 02:22] VITALS: BP 104/48; PULSE 79; RESP 20; TEMP 36.3; O2SAT 95
[2024-12-28 05:31] LABS: Hematocrit 31.9 % (37.0-47.0); Hemoglobin 10.3 g/dL (12.0-15.0); Mean Corpuscular HGB Conc 32.3 g/dl (32-36); Mean Corpuscular Hemoglobin 29.3 pg (26-34); Mean Corpuscular Volume 90.6 fl (80-100); Platelet Count Result 211 k/mm3 (150-375); Red Blood Count 3.52 M/mm3 (4.2-5.4); Red Cell Distribution Width 13.2 % (11.5-14.5); White Blood Count 13.6 K/mm3 (4.5-10.0)
[2024-12-28 05:39] LABS: Anion Gap 5 mmol/L (4-12); Blood Urea Nitrogen 8 mg/dL (7-17); Calcium 8.9 mg/dL (8.4-10.2); Carbon Dioxide 26 mmol/L (22-30); Chloride 105 mmol/L (98-107); Estimated CRCL calculation 72 ml/min; Estimated Glomerular Filt Rate > 60; Glucose 86 mg/dL (65-110); Potassium 4.1 mmol/L (3.4-5.0); Sodium 136 mmol/L (137-145)
[2024-12-28 06:09] VITALS: BP 114/57; PULSE 79; RESP 20; TEMP 37.1; O2SAT 97
[2024-12-28] MEDS: LACTATED RINGERS 1,000 ML 100 ML IV CONT (08:24)
[2024-12-28] MEDS: FAMOTIDINE 20 MG/2 ML VIAL IV PUSH (08:26)
[2024-12-28] MEDS: ENOXAPARIN 40 MG/0.4 ML SYRINGE SUB-Q (08:27)
[2024-12-28 10:14] VITALS: BP 118/54; PULSE 87; RESP 18; TEMP 37.3; O2SAT 97
--- NOTE | 2024-12-28 11:43 | PM.PNGS ---
Progress Note: A&P Assessment and Plan (1) Polyp of ascending colon: Qualifiers: Colon polyp type: adenomatous Qualified Code(s): D12.2 - Benign neoplasm of ascending colon Code(s): K63.5 - Polyp of colon Status: Acute Assessment and Plan: Removed surgically. Pathology pending (2) History of partial surgical removal of colon: Code(s): Z90.49 - Acquired absence of other specified parts of digestive tract Status: Acute Assessment and Plan: Doing well postoperative day 1. Diet advanced to full liquids. Up walking with assistance. Recheck labs and exam again tomorrow. Subjective Subjective Date/Time Seen: 12/28/24 11:43 Post Op day: 1 Patient reports: still having pain, tolerating liquids well, voiding w/o difficulty, no bowel movement and afebrile Exam Const: General: alert and awake GI: Inspection: non-distended and incision (Dry and healing) GI Palp: Yes Soft to palpation and Yes Tenderness to palpation present (GI) (Mild, appropriate tenderness) Auscultation: Hypoactive bowel sounds present Objective Data Vital Signs Vital Signs: Vital Signs - 24 hr 12/27/24 11:55 12/27/24 12:10 12/27/24 12:25 Temperature Pulse Rate 58 L 56 L 60 Respiratory Rate 10 L 10 L 12 Blood Pressure 112/75 109/71 98/67 L Pulse Oximetry 100 100 96 Oxygen Delivery Simple Face Mask Room Air Room Air Oxygen Flow Rate 8 12/27/24 13:04 12/27/24 13:15 12/27/24 13:55 Temperature 36.2 C L 36.2 C L 36.1 C L Pulse Rate 56 L 58 L 66 Respiratory Rate 18 18 18 Blood Pressure 101/54 L 122/77 109/63 Pulse Oximetry 100 100 100 Oxygen Delivery Oxygen Flow Rate 12/27/24 18:30 12/27/24 22:22 12/27/24 23:00 Temperature 36.1 C L 38.2 C H Pulse Rate 76 85 79 Respiratory Rate 18 20 20 Blood Pressure 112/57 L 135/55 L Pulse Oximetry 100 100 95 Oxygen Delivery Room Air Oxygen Flow Rate 12/28/24 02:22 12/28/24 06:09 12/28/24 10:14 Temperature 36.3 C L 37.1 C 37.3 C Pulse Rate 79 79 87 Respiratory Rate 20 20 18 Blood Pressure 104/48 L 114/57 L 118/54 L Pulse Oximetry 95 97 97 Oxygen Delivery Oxygen Flow Rate Intake/Output Intake/Output: Intake & Output 12/25/24 12/26/24 12/27/24 12/28/24 23:59 23:59 23:59 23:59 Intake Total 2250 1555.0 Balance 2250 1555.0 Meds/Results Medications: Active Medications Generic Name Dose Route Start Last Admin Trade Name Freq PRN Reason Stop Dose Admin Acetaminophen 500 mg 12/27/24 12:37 Acetaminophen 500 Mg Tablet PO Q6H PRN Pain Rated 1-3 Alvimopan 12 mg 12/28/24 21:00 Alvimopan 12 Mg Capsule PO 01/04/25 20:59 Q12HR SCOT Atorvastatin Calcium 40 mg 12/27/24 21:00 12/27/24 21:05 Atorvastatin 40 Mg Tablet PO 40 mg QHS SCOT Administration Enoxaparin Sodium 40 mg 12/28/24 09:00 12/28/24 08:27 Enoxaparin 40 Mg/0.4 Ml Syringe SUB-Q 40 mg DAILY SCOT Administration Famotidine 20 mg 12/28/24 21:00 Famotidine 20 Mg Tablet PO Q12HR SCOT Lactated Ringer's 1,000 mls @ 60 mls/hr 12/27/24 12:37 12/28/24 09:44 Lr - Lactated Ringers Iv IV CONT 60 mls/hr .[id number] SCOT Infusion Ibuprofen 800 mg in 200 mls @ 400 mls/hr 12/27/24 12:37 Caldolor 800 Mg/200 Ml IVPB Q6H PRN Breakthrough Pain Rated 1-3 or NPO Morphine Sulfate 2 mg 12/27/24 12:37 Morphine Sulfate (*Crx) 2 Mg/Ml Inj IV PUSH Q2H PRN Breakthrough Pain Rated 4-6 or NPO Morphine Sulfate 4 mg 12/27/24 12:37 Morphine Sulfate (*Crx) 4 Mg/Ml Inj IV PUSH Q2H PRN Breakthrough Pain Rated 7-10 or NPO Naloxone HCl 0.1 mg 12/27/24 12:37 Naloxone Hcl 0.4 Mg/Ml Vial IV PUSH Q2M PRN Opiate Reversal Ondansetron HCl 4 mg 12/27/24 12:37 Ondansetron Inj 4 Mg/2 Ml Vial IV PUSH Q4H PRN Nausea And Vomiting Oxycodone/Acetaminophen 1 tablet 12/27/24 12:37 12/28/24 08:26 Oxycodone/Acetaminophen (*Crx) 5-325 Mg Tablet PO 1 tablet Q4H PRN Administration Pain Rated 4-6 Oxycodone/Acetaminophen 1 tab 12/27/24 12:37 Oxycodone/Acetaminophen (*Crx) 10-325 Mg Tablet PO Q6H PRN Pain Rated 7-10 Primidone 50 mg 12/27/24 21:00 12/27/24 21:05 Primidone 50 Mg Tablet PO 50 mg HS SCOT Administration Labs Labs: Laboratory Results - last 24 hr 12/28/24 05:09 WBC 13.6 H RBC 3.52 L Hgb 10.3 L D Hct 31.9 L MCV 90.6 MCH 29.3 MCHC 32.3 RDW 13.2 Plt Count 211 MPV 11.0 H Sodium 136 L Potassium 4.1 Chloride 105 Carbon Dioxide 26 Anion Gap 5 BUN 8 D Creatinine 0.68 L Estim Creat Clear Calc 72 Estimated GFR > 60 Glucose 86 Calcium 8.9
[2024-12-28 14:57] VITALS: BP 142/58; PULSE 81; RESP 18; TEMP 36.9; O2SAT 97
--- NOTE | 2024-12-28 16:29 | WPDANESPN ---
Anes - Prog Note Post-Op Date/Time: 12/28/24 16:29 Cardiovascular status: normal Respiratory status: normal Airway patency: baseline Mental status: baseline Post-Op hydration status: normal Vital Signs: Last Vital Signs Temp 36.9 C 12/28/24 14:57 Pulse 81 12/28/24 14:57 Resp 18 12/28/24 14:57 BP 142/58 H 12/28/24 14:57 Pulse Ox 97 12/28/24 14:57 O2 Del Method Room Air 12/28/24 08:25 O2 Flow Rate 8 12/27/24 11:55 Pain Score (VAS): 3 I/O: Intake & Output 12/28/24 12/28/24 12/28/24 07:59 15:59 23:59 Intake Total 2035.0 Balance 2035.0 Laboratory Tests 12/28/24 05:09 12/28/24 05:09 12/28/24 05:09 WBC 13.6 H RBC 3.52 L Hgb 10.3 L D Hct 31.9 L MCV 90.6 MCH 29.3 MCHC 32.3 RDW 13.2 Plt Count 211 MPV 11.0 H Sodium 136 L Potassium 4.1 Chloride 105 Carbon Dioxide 26 Anion Gap 5 BUN 8 D Creatinine 0.68 L Estim Creat Clear Calc 72 Estimated GFR > 60 Glucose 86 Calcium 8.9 Post-procedural complaints: none Patient Feedback: Patient satisfied with anesthetic care.
[2024-12-28] MEDS: FAMOTIDINE 20 MG TABLET PO (20:09)
[2024-12-28] MEDS: LACTATED RINGERS 1,000 ML 60 ML IV CONT (20:10)
[2024-12-28] MEDS: ALVIMOPAN 12 MG CAPSULE PO (20:10)
[2024-12-28] MEDS: PRIMIDONE 50 MG TABLET PO (20:10)
[2024-12-28] MEDS: ATORVASTATIN 40 MG TABLET PO (20:10)
[2024-12-28 20:45] VITALS: BP 136/55; PULSE 88; RESP 16; TEMP 37.6; O2SAT 100
[2024-12-28 22:15] VITALS: PULSE 88; RESP 16; O2SAT 100
[2024-12-29] MEDS: oxyCODONE/ACETAMINOPHEN (*CRX) 10-325 MG TABLET 1 TAB PO (03:14)
[2024-12-29 05:41] LABS: Hematocrit 27.8 % (37.0-47.0); Hemoglobin 8.8 g/dL (12.0-15.0); Mean Corpuscular HGB Conc 31.7 g/dl (32-36); Mean Corpuscular Hemoglobin 28.7 pg (26-34); Mean Corpuscular Volume 90.6 fl (80-100); Mean Platelet Volume 10.9 fl (7.4-10.4); Platelet Count Result 190 k/mm3 (150-375); Red Blood Count 3.07 M/mm3 (4.2-5.4); Red Cell Distribution Width 13.5 % (11.5-14.5); White Blood Count 10.1 K/mm3 (4.5-10.0)
[2024-12-29 05:58] LABS: Anion Gap 6 mmol/L (4-12); Blood Urea Nitrogen 6 mg/dL (7-17); Calcium 8.6 mg/dL (8.4-10.2); Carbon Dioxide 28 mmol/L (22-30); Chloride 104 mmol/L (98-107); Estimated CRCL calculation 76 ml/min; Estimated Glomerular Filt Rate > 60; Glucose 91 mg/dL (65-110); Potassium 3.8 mmol/L (3.4-5.0); Sodium 138 mmol/L (137-145)
[2024-12-29 06:19] VITALS: BP 128/59; PULSE 84; RESP 20; TEMP 36.9; O2SAT 94
[2024-12-29] MEDS: ENOXAPARIN 40 MG/0.4 ML SYRINGE SUB-Q (08:19)
[2024-12-29] MEDS: BUMETANIDE INJ 1 MG/4 ML VIAL 2 MG IV PUSH (08:19)
[2024-12-29] MEDS: POTASSIUM CHLORIDE 20 MEQ ER TABLET 40 MEQ PO (08:19)
[2024-12-29] MEDS: FAMOTIDINE 20 MG TABLET PO (08:19)
[2024-12-29] MEDS: ACETAMINOPHEN 500 MG TABLET PO (08:23)
--- NOTE | 2024-12-29 12:11 | P.DS_ITS ---
DS: Admitting Diagnosis Discharge Date 12/29/2024 Admitting Diagnosis * Ascending colon polyp DS: Discharge Diagnosis Discharge Diagnosis (1) Polyp of ascending colon: Qualifiers: Colon polyp type: adenomatous Qualified Code(s): D12.2 - Benign neoplasm of ascending colon Code(s): K63.5 - Polyp of colon Status: Chronic (2) History of partial surgical removal of colon: Code(s): Z90.49 - Acquired absence of other specified parts of digestive tract Status: Acute (3) Postoperative anemia due to acute blood loss: Code(s): D62 - Acute posthemorrhagic anemia Status: Acute DS: Summary Hospital Course Hospital Course: Patient has a history of colonic polyps and underwent a repeat colonoscopy 3 years after her last. A friable, fungating, polyp was noted just beyond the c ecum in the ascending colon. Biopsies of this showed an inflamed mixed tubular adenoma and hyperplastic polyp. Patient was seen in the office by Dr. Candelario. The polyp is not resectable colonoscopically. After discussion, plans were made to take the patient to surgery for right colectomy. Patient had home bowel preparation and was taken to the operating room on the day of admission, 12/27/2024. She underwent hand access laparoscopic right colectomy with ileotransverse hand-sewn anastomosis. During the surgery, there were a couple of mesenteric vessels which did not cauterize with the LigaSure and were difficult to control during the surgery as they retracted into the mesentery. This resulted in higher than usual blood loss of 200 cc. There was no hemodynamic instability or changes. There was no need for blood transfusion. Postoperatively, the patient did well. She was requiring some occasional IV narcotic analgesics on postop day 1. She was started on liquids and slowly advanced to regular diet. Her pain diminished and on the day of discharge she was comfortable on oral analgesics and these were taken in frequently. Her hemoglobin and hematocrit decreased postoperatively consistent with both intraoperative loss as well as dilution from perioperative IV fluid administration. Her H&H was 8.8 and 27.8 on the day of discharge. Her vital signs were stable. Plans are to repeat another H&H in 2 days as an outpatient. She will also be discharged home on iron. Pathology is pending at the time of this dictation. Patient went home on 12/29/2024, eating solid food, ambulating independently, and comfortable on oral analgesics. Status at Discharge Functional status at discharge: independent ambulation Overall status at discharge: patient is progressing back to baseline Time Spent with Patient Time attestation: Total time spent providing and/or coordinating discharge services: Time spent: Less than 30 minutes DS: Data Data Completed and Pending Pending studies at discharge: Pending at discharge 12/27/24 10:03 Surgical [PTH] Routine Labs on day of discharge: Labs from last 24 hours 12/29/24 05:21 WBC 10.1 H RBC 3.07 L Hgb 8.8 L Hct 27.8 L MCV 90.6 MCH 28.7 MCHC 31.7 L RDW 13.5 Plt Count 190 MPV 10.9 H Sodium 138 Potassium 3.8 Chloride 104 Carbon Dioxide 28 Anion Gap 6 BUN 6 L Creatinine 0.64 L Estim Creat Clear Calc 76 Estimated GFR > 60 Glucose 91 Calcium 8.6 Discharge Plan Discharge Attending physician on discharge: Jose David Candelario Discharging Clinician: Jose David Candelario Anticipated Discharge Date/Time: 12/29/24 12:21 Patient Disposition: Home, Self-Care Activity: may shower, no straining and as tolerated Diet: regular Wound Care Instructions: incision open to air Discharge Instructions: * Ambulate 3-4 x per day and as tolerated. * No lifting over 15-20lbs. * May bathe or shower. * Stairs are OK. * May drive a car in 3 days. * Recheck CBC as an outpatient on Monday12/31/2024 Patient Instructions: Antibiotic Form Patient Language: Mongolian Stand Alone Forms: General Discharge Information Follow-up/Referrals: Jose David Candelario MD [Physician] - 2 Weeks Discharge Medications: New oxycodone-acetaminophen [Percocet] 5-325 mg tablet 0.5 - 1 tablet PO Q4H PRN (Reason: pain) Qty: 10 0RF potassium chloride 20 mEq tablet extended release 20 meq PO DAILY Qty: 5 0RF ibuprofen 600 mg tablet 600 mg PO Q6H PRN (Reason: pain) Qty: 14 0RF ferrous sulfate 325 mg (65 mg iron) tablet 325 mg PO BID Qty: 60 0RF Continued primidone 50 mg tablet 50 mg PO HS atorvastatin 40 mg tablet 40 mg PO DAILY Qty: 90 1RF Patient Comments: HS Discontinued ciprofloxacin HCl 500 mg tablet See Rx Instructions .ROUTE .COMPLEX Qty: 1 0RF Rx Instructions: Take 1 tablet by mouth at 2:00pm the day before surgery.; metronidazole 500 mg tablet 500 mg PO .COMPLEX Qty: 3 0RF Rx Instructions: 500 mg orally Take 1 tablet by mouth at 1:00pm, 2:00pm and 11:00pm the day before surgery.; Other Ambulatory Orders: Complete Blood Count no Diff (Routine) Timeframe: [id number] Location: Determined by Patient Ordered By: Jose David Candelario Date of admission: 12/27/24 12:37 Primary Care Provider: Cristel Ball Admitting Provider: Jose David Candelario Attending physician on admission: Jose David Candelario Condition: Improved
== END 2024-12-29 12:55 | disposition home or self-care (01) | DRG 330 ==
LOC: ANH2MED 12:40
PROVIDERS: Admitting Provider Surgery; PCP Nurse Practitioner Family; Visit Provider Surgery
PROC: 0DTF4ZZ Resection of Right Large Intestine, Percutaneous Endoscopic Approach (ICD-10-PCS; CPT 44204; principal; 2024-12-27 08:30)
DX: C18.2 Malignant neoplasm of ascending colon (principal); D62 Acute posthemorrhagic anemia; E78.5 Hyperlipidemia, unspecified; E66.9 Obesity, unspecified
CPT/HCPCS: 36415; 80048; 85027; 88309; 88342; A9270; J0690; J1100; J1171; J1650; J1836; J1885; J1939; J2003; J2250; J2371; J2405; J2704; J2765; J3010; J7120

== ENCOUNTER 2025-01-02 15:00 | Outpatient (CLI) | payer MEDICARE, SELFPAY ==
--- OUTSIDE RECORDS SUMMARY | 2025-01-02 15:22 | XMS_ITS | Clinical Summary ---
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 Active Cholecalciferol (VITAMIN D) 50 MCG (2000 UT) Tab Take 1 tablet by mouth daily. Active [place]-3 Fatty Acids (FISH OIL) 500 MG capsule [...] patient's age to complete this topic [place] [address] [address] [address] [facility]
--- OUTSIDE RECORDS SUMMARY | 2025-01-02 15:22 | XMS_ITS | Data Portability ---
Author Organization [facility], Main Office Address [address] [place] [address] Care Team Providers Care Tour Manager Name Role Phone [facility] (LAB) Primary Ca re Provider Assessment No assessment recorded. Plan of Treatment Reminders Order Date Submit Date Provider Last Modified By Organization Details Last Modified Time Details Appointments None recorded. Lab TSH, serum, reflex free T4 [address] Outpatient Lab, [address] [place], [address], 3 08:54:22 drug screen, urine 2022 023 [facility] ([facility]3] Outpatient Lab, [address] [place], [address], 3 14:06:22 lipid panel, serum 2022 023 [facility] ([facility]3] Outpatient Lab, [address] [place], [address], 3 20:13:41 CMP, serum or plasma 2022 023 [facility]3] Outpatient Lab, [address] [place], [address], 3 20:13:46 HbA1c (hemoglobin A1c), blood [address] Outpatient Lab, [address] [place], [address], 3 10:09:06 CBC w/ auto diff 2022 023 [facility] - Out[facility] Lab, [address] [facility] [place], [address], 20:08:56 Referral neurologist referral - eval and treat for tremor. Was a Naseer patient on primadone 2022 023 [email or web address] [facility] - Neurology, [address], [facility] [place], [address], 3 11:26:37 Procedures None recorded. Surgeries None recorded. Imaging None recorded. Medication Orders lisinopril 20 mg tablet 2022 023 [facility], [address] [facility] [address], [place], [address], 14:38:13 Patient TargetsNo targets recorded. Patient Instructions Encounter Date Encounter Id Patient Instructions Last Modified By Organization Details Last Modified Time 02/07/2023 [id number] FU in 4 mo, sooner as needed. Lipid, depression/anxiet y, tremor Not available 02/07/2023 10:37:45 07/27/2023 [id number] FU in 6 mo for weight,, htn, [...] 2016, 39([facility] ):s13 -s22 Not Available [facility] (Lab) [address] [place], [address], 03/24/2022 20:14:42 03/23/20 22 03/24/2022 FOLAT E, SERUM /PLAS MA folate 13.8 NG/mL 2.76-2 0.0 Not Available [facility] (Lab) [address] [place], [address], 03/24/2022 16:34:02 03/23/20 22 03/24/2022 VITAM IN B12 (PETRA RIYA ) vb12 561 pg/mL 239-93 1 Not Available [facility] (Lab) [address] [place], [address], 03/24/2022 16:33:57 03/23/20 22 03/24/2022 TSH W/REF ANDREI FT4 TSH with reflex free T4 0.762 uIU/m L 0.465- 4.680 Not Available [facility] (Lab) [address] [place], [address], 03/24/2022 16:11:40 03/23/20 22 03/24/2022 VITAM IN D 25-HY DROXY vd25oh 34.9 NG/mL 30-100 Vitam in D Statu s: Defic ient: <20 ng/mL Insuf ficie nt: 20-29 ng/mL Suffi cient : 30-10 0 ng/mL Not Available [facility] (Lab) [address] [place], [address], 03/24/2022 15:45:15 03/23/20 22 03/24/2022 CBC/C OMPLE TE BLD COUNT W/DIF F white blood cells 9.0 x10'3 /uL 4.2-10 .8 Not Available [facility] (Lab) [address] [place], [address], 03/24/2022 15:28:41 03/23/20 22 03/24/2022 CBC/C OMPLE TE BLD COUNT W/DIF F red blood cells 4.80 x10'6 /uL 3.80-5 .20 Not Available [facility] (Lab) [address] [facility] [place], [address], 03/24/2022 15:28:41 03/23/20 22 03/24/2022 CBC/C OMPLE TE BLD COUNT W/DIF F hemoglobin 13.7 g/dL 12.0-1 5.6 Not Available [facility] (Lab) [address] [place], [address], 03/24/2022 15:28:41 03/23/20 22 03/24/2022 CBC/C OMPLE TE BLD COUNT W/DIF F hematocrit 42.3 % 35.7-4 5.7 Not Available [facility] (Lab) [address] [place], [address], 03/24/2022 15:28:41 03/23/20 22 03/24/2022 CBC/C OMPLE TE BLD COUNT W/DIF F mean red cell volume 88.1 fL 82.0-9 9.0 Not Available [facility] (Lab) [address] [place], [address], 03/24/2022 15:28:41 03/23/20 22 03/24/2022 CBC/C OMPLE TE BLD COUNT W/DIF F mean red cell hemoglobin 28.5 pg 27.0-3 3.0 Not Available [facility] (Lab) [address] [place], [address], 03/24/2022 15:28:41 03/23/20 22 03/24/2022 CBC/C OMPLE TE BLD COUNT W/DIF F mean RBC HGB concentratio n 32.4 g/dL 31.0-3 6.0 Not Available [facility] (Lab) [address] [place], [address], 03/24/2022 15:28:41 03/23/20 22 03/24/2022 CBC/C OMPLE TE BLD COUNT W/DIF F red cell distribution width 13.3 % 11.8-1 5.5 Not Available [facility] (Lab) [address] [place], [address], 03/24/2022 15:28:41 03/23/20 22 03/24/2022 CBC/C OMPLE TE BLD COUNT W/DIF F platelets 239 x10'3 /uL 150-40 0 Not Available [facility] (Lab) [address] [place], [address], 03/24/2022 15:28:41 03/23/20 22 03/24/2022 CBC/C OMPLE TE BLD COUNT W/DIF F mean platelet volume 11.7 fL 9.0-12 .4 Not Available [facility] (Lab) [address] [place], [address], 03/24/2022 15:28:41 03/23/2003/24/2022 CBC/C OMPLE TE BLD COUNT W/DIF F neutrophils 56.2 % 39.0-7 2.0 Not Available [facility] (Lab) [address] [place], [address], 03/24/2022 15:28:41 03/23/2003/24/2022 CBC/C OMPLE TE BLD COUNT W/DIF F lymphocytes 30.5 % 16.0-4 7.0 Not Available [facility] (Lab) [address] [place], [address], 03/24/2022 15:28:41 03/23/20 22 03/24/2022 CBC/C OMPLE TE BLD COUNT W/DIF F monocytes 8.8 % 5.0-12 .0 Not Available [facility] (Lab) [address] [place], [address], 03/24/2022 15:28:41 03/23/20 22 03/24/2022 CBC/C OMPLE TE BLD COUNT W/DIF F eosinophils 3.2 % 1.0-7. 0 Not Available [facility] (Lab) [address] [place], [address], 03/24/2022 15:28:41 03/23/20 22 03/24/2022 CBC/C OMPLE TE BLD COUNT W/DIF F basophils 0.6 % 0.0-2. 0 Not Available [facility] (Lab) [address] [place], [address], 03/24/2022 15:28:41 03/23/20 22 03/24/2022 CBC/C OMPLE TE BLD COUNT W/DIF F immature granulocytes 0.7 % 0.00-0 .50 high Not Available [facility] (Lab) [address] [place], [address], 03/24/2022 15:28:41 03/23/20 22 03/24/2022 CBC/C OMPLE TE BLD COUNT W/DIF F neutrophils, absolute count 5.08 x10'3 /uL 1.5-8. 0 Not Available [facility] (Lab) [address] [place], [address], 03/24/2022 15:28:41 03/23/2003/24/2022 CBC/C OMPLE TE BLD COUNT W/DIF F lymphocytes, absolute count 2.76 x10'3 /uL 1.07-3 .43 Not Available [facility] (Lab) [address] [place], [address], 03/24/2022 15:28:41 03/23/20 22 03/24/2022 CBC/C OMPLE TE BLD COUNT W/DIF F monocytes, absolute count 0.80 x10'3 /uL 0.29-0 .99 Not Available [facility] (Lab) [address] [place], [address], 03/24/2022 15:28:41 03/23/20 22 03/24/2022 CBC/C OMPLE TE BLD COUNT W/DIF F eosinophils, absolute count 0.29 x10'3 /uL 0.02-0 .53 Not Available [facility] (Lab) [address] [place], [address], 03/24/2022 15:28:41 03/23/20 22 03/24/2022 CBC/C OMPLE TE BLD COUNT W/DIF F basophils, absolute count 0.05 x10'3 /uL 0.01-0 .08 Not Available [facility] (Lab) [address] [place], [address], 03/24/2022 15:28:41 03/23/20 22 03/24/2022 CBC/C OMPLE TE BLD COUNT W/DIF F immature granulocytes ,absolute 0.06 x10'3 /uL 0.00-0 .05 high Not Available [facility] (Lab) [address] [place], [address], 03/24/2022 15:28:41 03/23/20 22 03/24/2022 CBC/C OMPLE TE BLD COUNT W/DIF F nucleated red blood cells 0.0 % -0 Not Available [facility] (Lab) [address] [place], [address], 03/24/2022 15:28:41 03/23/20 22 03/24/2022 CBC/C OMPLE TE BLD COUNT W/DIF F NRBC# 0.00 x10'3 /uL Not Available [facility] (Lab) [address] [place], [address], 03/24/2022 15:28:41 03/23/20 22 03/24/2022 COMPR EHENS VIRIDIANA METAB OLIC PANEL sodium 135 mmol/ L 137-14 5 low Not Available [facility] (Lab) [address] [place], [address], 03/24/2022 15:22:13 03/23/20 22 03/24/2022 COMPR EHENS VIRIDIANA METAB OLIC PANEL potassium 4.1 mmol/ L 3.5-5. 1 Not Available [facility] (Lab) [address] [place], [address], 03/24/2022 15:22:13 03/23/20 22 03/24/2022 COMPR EHENS VIRIDIANA METAB OLIC PANEL chloride 103 mmol/ L 98-107 Not Available [facility] (Lab) [address] [place], [address], 03/24/2022 15:22:13 03/23/20 22 03/24/2022 COMPR EHENS VIRIDIANA METAB OLIC PANEL carbon dioxide 25 mmol/ L 22-30 Not Available [facility] (Lab) [address] [place], [address], 03/24/2022 15:22:13 03/23/20 22 03/24/2022 COMPR EHENS VIRIDIANA METAB OLIC PANEL anion gap 11.1 mmol/ L 14-22 low Not Available [facility] (Lab) [address] [place], [address], 03/24/2022 15:22:13 03/23/20 22 03/24/2022 COMPR EHENS VIRIDIANA METAB OLIC PANEL glucose 80 mg/dL 70-99 Not Available [facility] (Lab) [address] [place], [address], 03/24/2022 15:22:13 03/23/20 22 03/24/2022 COMPR EHENS VIRIDIANA METAB OLIC PANEL BUN 14 mg/dL 8-19 Not Available [facility] (Lab) [address] [place], [address], 03/24/2022 15:22:13 03/23/20 22 03/24/2022 COMPR EHENS VIRIDIANA METAB OLIC PANEL creatinine 0.71 mg/dL 0.66-1 .25 Not Available [facility] (Lab) [address] [place], [address], 03/24/2022 15:22:13 03/23/20 22 03/24/2022 COMPR EHENS VIRIDIANA METAB OLIC PANEL GFR >60 Refer ence Range : [place] ge GFR Healt hy Adult : >60 [...] or ethni c subgr oups, such as Hismo nics. Outsi de the valid ated cece [...] s/kdo qi/gf r_cal culat or Not Available [facility] (Lab) [address] [place], [address], 03/24/2022 15:22:13 03/23/20 22 03/24/2022 COMPR EHENS VIRIDIANA METAB OLIC PANEL alkaline phosphatase 134 U/L 38-126 high Not Available [facility] (Lab) [address] [place], [address], 03/24/2022 15:22:13 03/23/20 22 03/24/2022 COMPR EHENS VIRIDIANA METAB OLIC PANEL alanine aminotransfe rase 20 U/L 0-35 Not Available [facility] (Lab) [address] [place], [address], 03/24/2022 15:22:13 03/23/20 22 03/24/2022 COMPR EHENS VIRIDIANA METAB OLIC PANEL aspartate aminotransfe rase 28 U/L 15-37 Not Available [facility] (Lab) [address] [place], [address], 03/24/2022 15:22:13 03/23/20 22 03/24/2022 COMPR EHENS VIRIDIANA METAB OLIC PANEL bilirubin, total 0.50 mg/dL 0.20-1 .30 Not Available [facility] (Lab) [address] [place], [address], 03/24/2022 15:22:13 03/23/20 22 03/24/2022 COMPR EHENS VIRIDIANA METAB OLIC PANEL calcium 10.0 mg/dL 8.4-10 .2 Not Available [facility] (Lab) [address] [place], [address], 03/24/2022 15:22:13 03/23/20 22 03/24/2022 COMPR EHENS VIRIDIANA METAB OLIC PANEL total protein 7.7 g/dL 6.3-8. 2 Not Available [facility] (Lab) [address] [place], [address], 03/24/2022 15:22:13 03/23/20 22 03/24/2022 COMPR EHENS VIRIDIANA METAB OLIC PANEL albumin 4.7 g/dL 3.0-4. 4 high Not Available [facility] (Lab) [address] [place], [address], 03/24/2022 15:22:13 03/23/20 22 03/24/2022 COMPR EHENS VIRIDIANA METAB OLIC PANEL globulin 3.0 g/dL 2.6-4. 2 Not Available [facility] (Lab) [address] [place], [address], 03/24/2022 15:22:13 03/23/20 22 03/24/2022 COMPR EHENS VIRIDIANA METAB OLIC PANEL A/G ratio 1.6 ratio 1.0-2. 0 Not Available [facility] (Lab) [address] [place], [address], 03/24/2022 15:22:13 03/23/20 22 03/24/2022 LIPID PANEL cholesterol 242 mg/dL 140-19 9 high NIH JOSE NSUS RECOM MENDA TION FOR CANDY STERO L: ADULT CHILD LOW RISK: <200 <170 BORDE RLINE : <200- 239 ----- HIGH RISK: >240 >200 Not Available [facility] (Lab) [address] [place], [address], 03/24/2022 15:22:03 03/23/20 22 03/24/2022 LIPID PANEL triglyceride s 220 mg/dL 0-150 high NIH JOSE NSUS REPOR T RECOM MENDA TION FOR TRIGL YCERI JOSE: ADULT CHILD LOW RISK: <150 ----- BODER LINE: 150-1 99 ----- HIGH RISK: >200 ----- Not Available [facility] (Lab) [address] [place], [address], 03/24/2022 15:22:03 03/23/20 22 03/24/2022 LIPID PANEL HDL cholesterol 52 mg/dL 40- Not Available [facility] (Lab) [address] [place], [address], 03/24/2022 15:22:03 03/23/20 22 03/24/2022 LIPID PANEL [...] WILL NOT BE REPOR LAZARA. Not Available [facility] (Lab) [address] [place], [address], 03/24/2022 15:22:03 02/08/2002/07/2023 CBC/C OMPLE TE BLD COUNT W/DIF F white blood cells 7.5 x10'3 /uL 4.2-10 .8 Not Available [facility] (Lab) [address] [place], [address], 02/07/2023 20:08:55 02/08/2002/07/2023 CBC/C OMPLE TE BLD COUNT W/DIF F red blood cells 4.58 x10'6 /uL 3.80-5 .20 Not Available [facility] (Lab) [address] [place], [address], 02/07/2023 20:08:55 02/08/2002/07/2023 CBC/C OMPLE TE BLD COUNT W/DIF F hemoglobin 13.1 g/dL 12.0-1 5.6 Not Available [facility] (Lab) [address] [place], [address], 02/07/2023 20:08:55 02/08/2002/07/2023 CBC/C OMPLE TE BLD COUNT W/DIF F hematocrit 40.6 % 35.7-4 5.7 Not Available [facility] (Lab) [address] [place], [address], 02/07/2023 20:08:55 02/08/20 23 02/07/2023 CBC/C OMPLE TE BLD COUNT W/DIF F mean red cell volume 88.6 fL 82.0-9 9.0 Not Available [facility] (Lab) [address] [place], [address], 02/07/2023 20:08:55 02/08/20 23 02/07/2023 CBC/C OMPLE TE BLD COUNT W/DIF F mean red cell hemoglobin 28.6 pg 27.0-3 3.0 Not Available [facility] (Lab) [address] [place], [address], 02/07/2023 20:08:55 02/08/20 23 02/07/2023 CBC/C OMPLE TE BLD COUNT W/DIF F mean RBC HGB concentratio n 32.3 g/dL 31.0-3 6.0 Not Available [facility] (Lab) [address] [place], [address], 02/07/2023 20:08:55 02/08/20 23 02/07/2023 CBC/C OMPLE TE BLD COUNT W/DIF F red cell distribution width 13.3 % 11.8-1 5.5 Not Available [facility] (Lab) [address] [place], [address], 02/07/2023 20:08:55 02/08/20 23 02/07/2023 CBC/C OMPLE TE BLD COUNT W/DIF F platelets 243 x10'3 /uL 150-40 0 Not Available [facility] (Lab) [address] [place], [address], 02/07/2023 20:08:55 02/08/20 23 02/07/2023 CBC/C OMPLE TE BLD COUNT W/DIF F mean platelet volume 11.6 fL 9.0-12 .4 Not Available [facility] (Lab) [address] [place], [address], 02/07/2023 20:08:55 02/08/20 23 02/07/2023 CBC/C OMPLE TE BLD COUNT W/DIF F neutrophils 56.4 % 39.0-7 2.0 Not Available [facility] (Lab) [address] [place], [address], 02/07/2023 20:08:55 02/08/20 23 02/07/2023 CBC/C OMPLE TE BLD COUNT W/DIF F lymphocytes 33.1 % 16.0-4 7.0 Not Available [facility] (Lab) [address] [place], [address], 02/07/2023 20:08:55 02/08/20 23 02/07/2023 CBC/C OMPLE TE BLD COUNT W/DIF F monocytes 7.7 % 5.0-12 .0 Not Available [facility] (Lab) [address] [place], [address], 02/07/2023 20:08:55 02/08/20 23 02/07/2023 CBC/C OMPLE TE BLD COUNT W/DIF F eosinophils 2.0 % 1.0-7. 0 Not Available [facility] (Lab) [address] [place], [address], 02/07/2023 20:08:55 02/08/20 23 02/07/2023 CBC/C OMPLE TE BLD COUNT W/DIF F basophils 0.5 % 0.0-2. 0 Not Available [facility] (Lab) [address] [place], [address], 02/07/2023 20:08:55 02/08/20 23 02/07/2023 CBC/C OMPLE TE BLD COUNT W/DIF F immature granulocytes 0.3 % 0.00-0 .50 Not Available [facility] (Lab) [address] [place], [address], 02/07/2023 20:08:55 02/08/20 23 02/07/2023 CBC/C OMPLE TE BLD COUNT W/DIF F neutrophils, absolute count 4.24 x10'3 /uL 1.5-8. 0 Not Available [facility] (Lab) [address] [place], [address], 02/07/2023 20:08:55 02/08/20 23 02/07/2023 CBC/C OMPLE TE BLD COUNT W/DIF F lymphocytes, absolute count 2.49 x10'3 /uL 1.07-3 .43 Not Available [facility] (Lab) [address] [place], [address], 02/07/2023 20:08:55 02/08/20 23 02/07/2023 CBC/C OMPLE TE BLD COUNT W/DIF F monocytes, absolute count 0.58 x10'3 /uL 0.29-0 .99 Not Available [facility] (Lab) [address] [place], [address], 02/07/2023 20:08:55 02/08/20 23 02/07/2023 CBC/C OMPLE TE BLD COUNT W/DIF F eosinophils, absolute count 0.15 x10'3 /uL 0.02-0 .53 Not Available [facility] (Lab) [address] [place], [address], 02/07/2023 20:08:55 02/08/20 23 02/07/2023 CBC/C OMPLE TE BLD COUNT W/DIF F basophils, absolute count 0.04 x10'3 /uL 0.01-0 .08 Not Available [facility] (Lab) [address] [place], [address], 02/07/2023 20:08:55 02/08/20 23 02/07/2023 CBC/C OMPLE TE BLD COUNT W/DIF F immature granulocytes ,absolute 0.02 x10'3 /uL 0.00-0 .05 Not Available [facility] (Lab) [address] [place], [address], 02/07/2023 20:08:55 02/08/20 23 02/07/2023 CBC/C OMPLE TE BLD COUNT W/DIF F nucleated red blood cells 0.0 % -0 Not Available [facility] (Lab) [address] [place], [address], 02/07/2023 20:08:55 02/08/20 23 02/07/2023 CBC/C OMPLE TE BLD COUNT W/DIF F NRBC# 0.00 x10'3 /uL Not Available [facility] (Lab) [address] [place], [address], 02/07/2023 20:08:55 02/08/20 23 02/07/2023 LIPID PANEL cholesterol 165 mg/dL 140-19 9 NIH JOSE NSUS RECOM MENDA TION FOR CANDY STERO L: ADULT CHILD LOW RISK: <200 <170 BORDE RLINE : <200- 239 ----- HIGH RISK: >240 >200 Not Available [facility] (Lab) [address] [place], [address], 02/07/2023 20:13:41 02/08/20 23 02/07/2023 LIPID PANEL triglyceride s 163 mg/dL 0-150 high NIH JOSE NSUS REPOR T RECOM MENDA TION FOR TRIGL YCERI JOSE: ADULT CHILD LOW RISK: <150 ----- BODER LINE: 150-1 99 ----- HIGH RISK: >200 ----- Not Available [facility] (Lab) [address] [place], [address], 02/07/2023 20:13:41 02/08/20 23 02/07/2023 LIPID PANEL HDL cholesterol 45 mg/dL 40- Not Available [facility] (Lab) [address] [place], [address], 02/07/2023 20:13:41 02/08/20 23 02/07/2023 LIPID PANEL [...] WILL NOT BE REPOR LAZARA. Not Available [facility] (Lab) [address] [place], [address], 02/07/2023 20:13:41 02/08/20 23 02/07/2023 COMPR EHENS VIRIDIANA METAB OLIC PANEL sodium 138 mmol/ L 137-14 5 Not Available [facility] (Lab) [address] [place], [address], 02/07/2023 20:13:46 02/08/20 23 02/07/2023 COMPR EHENS VIRIDIANA METAB OLIC PANEL potassium 4.3 mmol/ L 3.5-5. 1 Not Available [facility] (Lab) [address] [place], [address], 02/07/2023 20:13:46 02/08/20 23 02/07/2023 COMPR EHENS VIRIDIANA METAB OLIC PANEL chloride 104 mmol/ L 98-107 Not Available [facility] (Lab) [address] [place], [address], 02/07/2023 20:13:46 02/08/20 23 02/07/2023 COMPR EHENS VIRIDIANA METAB OLIC PANEL carbon dioxide 25 mmol/ L 22-30 Not Available [facility] (Lab) [address] [place], [address], 02/07/2023 20:13:46 02/08/20 23 02/07/2023 COMPR EHENS VIRIDIANA METAB OLIC PANEL anion gap 13.3 mmol/ L 14-22 low Not Available [facility] (Lab) [address] [place], [address], 02/07/2023 20:13:46 02/08/20 23 02/07/2023 COMPR EHENS VIRIDIANA METAB OLIC PANEL glucose 94 mg/dL 70-99 Not Available [facility] (Lab) [address] [place], [address], 02/07/2023 20:13:46 02/08/20 23 02/07/2023 COMPR EHENS VIRIDIANA METAB OLIC PANEL BUN 15 mg/dL 8-19 Not Available [facility] (Lab) [address] [place], [address], 02/07/2023 20:13:46 02/08/20 23 02/07/2023 COMPR EHENS VIRIDIANA METAB OLIC PANEL creatinine 0.72 mg/dL 0.66-1 .25 Not Available [facility] (Lab) [address] [place], [address], 02/07/2023 20:13:46 02/08/20 23 02/07/2023 COMPR EHENS VIIRDIANA METAB OLIC PANEL GFR >60 Refer ence Range : [place] ge GFR Healt hy Adult : >60 [...] calcu lator is avail able on the [facility] websi te: [email or web address] :[email or web address] ional s/kdo qi/gf r_cal culat or Not Available [facility] (Lab) [address] [place], [address], 02/07/2023 20:13:46 02/08/20 23 02/07/2023 COMPR EHENS VIRIDIANA METAB OLIC PANEL alkaline phosphatase 126 U/L 38-126 Not Available [facility] (Lab) [address] [place], [address], 02/07/2023 20:13:46 02/08/20 23 02/07/2023 COMPR EHENS VIRIDIANA METAB OLIC PANEL alanine aminotransfe rase 24 U/L 0-35 Not Available [facility] (Lab) [address] [place], [address], 02/07/2023 20:13:46 02/08/20 23 02/07/2023 COMPR EHENS VIRIDIANA METAB OLIC PANEL aspartate aminotransfe rase 26 U/L 15-37 Not Available [facility] (Lab) [address] [place], [address], 02/07/2023 20:13:46 02/08/20 23 02/07/2023 COMPR EHENS VIRIDIANA METAB OLIC PANEL bilirubin, total 0.40 mg/dL 0.20-1 .30 Not Available [facility] (Lab) [address] [place], [address], 02/07/2023 20:13:46 02/08/20 23 02/07/2023 COMPR EHENS VIRIDIANA METAB OLIC PANEL calcium 9.9 mg/dL 8.4-10 .2 Not Available [facility] (Lab) [address] [place], [address], 02/07/2023 20:13:46 02/08/20 23 02/07/2023 COMPR EHENS VIRIDIANA METAB OLIC PANEL total protein 7.2 g/dL 6.3-8. 2 Not Available [facility] (Lab) [address] [place], [address], 02/07/2023 20:13:46 02/08/20 23 02/07/2023 COMPR EHENS VIRIDIANA METAB OLIC PANEL albumin 4.5 g/dL 3.0-4. 4 high Not Available [facility] (Lab) [address] [place], [address], 02/07/2023 20:13:46 02/08/20 23 02/07/2023 COMPR EHENS VIRIDIANA METAB OLIC PANEL globulin 2.7 g/dL 2.6-4. 2 Not Available [facility] (Lab) [address] [place], [address], 02/07/2023 20:13:46 02/08/20 23 02/07/2023 COMPR EHENS VIRIDIANA METAB OLIC PANEL A/G ratio 1.7 ratio 1.0-2. 0 Not Available [facility] (Lab) [address] [place], [address], 02/07/2023 20:13:46 02/08/20 23 02/07/2023 TSH W/REF ANDREI FT4 TSH with reflex free T4 2.050 uIU/m L 0.465- 4.680 Not Available [facility] (Lab) [address] [place], [address], 02/07/2023 20:29:53 02/08/20 23 02/07/2023 HEMOG LOBIN A1C HA1C 5.6 % 4.0-6. 0 Diabe tori Veena villanueva Crite risa: <5.7% Consi stent with absen ce of diabe tori 5.7-6 .4% Consi stent with incre ased risk for diabe tori (pred iabet es) >OR=6 .5% Consi stent with diabe tori REFER ENCE: Diabe tori Care 2016, 39([place] ppl.1 ):s13 -s22 Not Available [facility] ([facility]) [address] [place], [address], 02/07/2023 21:28:40 12/08/19 23 12/07/2022 MAMMO , veena villanueva, digit al, bilat eral No observ ation record ed. [facility] [address], [place], [address], 12/12/2022 16:39:42 Result Notes None recorded. Problems Name Problem SNOMED Code Status Onset Date Resolution Date Notes Provider Name and Address Organization Details Recorded Time Hypercholester olemia 39535094 Active 2020 Not Available [facility] 3 23:30:25 Tremor 63776999 Active 2020 Not Available [facility] 3 23:30:25 Depressive disorder 00489635 Active 2020 Not Available [facility] 3 23:30:25 Anxiety 31473913 Active 2020 Not Available [facility] 3 23:30:25 Hyperlipidemia 43846341 Active 2020 Not Available [facility] 3 23:30:25 Essential hypertension 79360816 Active 2022 Cristel Ball NP [address], [facility] [address], [place], [address] , [facility] 3 14:37:25 Notes:squamous cell skin can cer back 10/2021 Problem Notes None recorded. Procedures Surgical History Date Name Laterality Status Provider Name and Address Organization Details Recorded Time 3 Most Recent Mammogram completed Cristel Gonzalez RN [employer] 02/07/2023 10:02:21 Date of Last Pap Smear completed Not Available [facility] 11/30/2022 23:28:57 Imaging Results Imaging Date Name Status LastModified by Organiz ation Details LastModified Time 12/07/2022 MAMMO, screening, digital, bilateral completed [id number] [facility] [address], [place], [address], 12/12/2022 16:39:42 Procedure Notes None recorded. Medical [...] % 99 % 64 /min 97.5 [degF] 42132.0 7 g 126 mm[Hg] 76 mm[Hg] Not Available [facility] 3 23:30:02 Date Recorded Body mass index (BMI) Body height Oxygen saturation Oxygen saturation in Arterial blood by Pulse oximetry Heart rate Body temperature Body weight Systolic blood pressure Diastolic blood pressure Provider Name and Address Organization Details Last Updated DateTime 2 35.4 kg/m2 157.48 cm 98 % 98 % 76 /min 98.2 [degF] 81831.4 3 g 122 mm[Hg] 80 mm[Hg] Not Available [facility] 3 23:30:02 Date Recorded Body height Body mass index (BMI) Body weight Body temperature Heart rate Heart rate Respiratory rate Oxygen saturation Oxygen saturation in Arterial blood by Pulse oximetry Pain severity - 0-10 verbal numeric rating [Score] - Reported Systolic blood pressure Diastolic blood pressure Provider Name and Address Organization Details Last Updated DateTime 3 157.48 cm 36.6 kg/m2 26682.4 7 g 96.9 [degF] 67 /min 67 /min 16 /min 97 % 97 % 0 158 mm[Hg] 86 mm[Hg] Cristel Gonzalez RN [facility] [employer] [facility] 3 10:00:33 Date Recorded Body height Body mass index (BMI) Body weight Body temperature Heart rate Respiratory rate Oxygen saturation Oxygen saturation in Arterial blood by Pulse oximetry Pain severity - 0-10 verbal numeric rating [Score] - Reported Systolic blood pressure Diastolic blood pressure Provider Name and Address Organization Details Last Updated DateTime 3 157.48 cm 36.3 kg/m2 59183.0 9 g 97 [degF] 62 /min 16 /min 98 % 98 % 0 170 mm[Hg] 100 mm[Hg] Cristel Gonzalez RN [facility] [employer] [facility] 3 14:10:08 Social History Question Answer Notes LastModified by Organization Details LastModified Time Tobacco Smoking Status Never Smoker Not Available [facility] 11/30/2022 23:28:34 Do You Have An Advance Directive? Yes Information not available 02/07/2023 What Is Your Level Of Alcohol Consumption? Occasional MIGRATION.030 [id number] Information not available 11/30/2022 Do You Wear [...] While That Case Was Ill? No MIGRATION.030 [id number] Information not available 11/30/2022 In The 14 Days Before Symptom Onset, Have You Had Close Contact With A Person Who Is Under Investigation For COVID-19 While That Person Was Ill? No MIGRATION.0301 [id number] Information not available 11/30/2022 Are You Currently Employed? Yes Information not available 02/07/2023 What Type Of Diet Are You Following? 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 Yes Son Passed (2019) MIGRATION.030 [id number] Information not available 11/30/2022 Do You Use Insect Repellent Routinely? Yes MIGRATION.030 137928 Information not available 11/30/2022 Where Do You Live? SingleLevelHouse Information not available 02/07/2023 Do You Have A Medical Power Of Technology Lead? Yes Information not available 02/07/2023 Have You Ever Been Counseled For Unhealthy Alcohol Use? No MIGRATION.0301 745452 Information not available 11/30/2022 Do You Have Any Pets? No MIGRATION.0301 643546 Information not available 11/30/2022 What Is Your Relationship Status? MIGRATION.030 206797 Information not available 11/30/2022 Do You Use Your Seat Belt Or Car Seat Routinely? Yes MIGRATION.0301 [id number] Information not available 11/30/2022 Do You Have Smoke And Carbon Monoxide Detectors In Your Home? Yes MIGRATION.0301 517666 Information not available 11/30/2022 Are There Any Smokers In Your House? No MIGRATION.0301 572356 Information not available 11/30/2022 Do You Participate In Social Media? Yes MIGRATION.0301 791386 Information not available 11/30/2022 Do You Feel Stressed (tense, Restless, Nervous, Or Anxious, Or Unable To Sleep At Night)? [id number] MIGRATION.0301 461655 Information not available 11/30/2022 Do You Use Any Illicit Or Recreational Drugs? No MIGRATION.0301 979365 Information not available 11/30/2022 Do You Use Sunscreen Routinely? Yes MIGRATION.0301 045832 Information not available 11/30/2022 Has Tobacco Cessation Counseling Been Provided? No MIGRATION.0301 852452 Information not available 11/30/2022 Have You Recently Traveled Abroad? No MIGRATION.0301 908138 Information not available 11/30/2022 Do You Have Any Dietary Restrictions? No MIGRATION.0301 648448 Information not available 11/30/2022 Do You Or Have You Ever Used Any Other Forms Of Tobacco Or Nicotine? No MIGRATION.0301 611290 Information not available 11/30/2022 Sex: Unknown Functional Status Question Answer Note LastModified by Organization D etails LastModified Time What is your exercise level? None Information not available 07/27/2023 Mental Status None recorded. Family History Relationship Description Onset Age of this Age Resolved Age Notes LastModified by Organization Details LastModified Time Father Diabetes mellitus MIGRATION.374 [id number] Not available 11/30/2022 23:29:02 Paternal Grandmother Heart disease MIGRATION.850 [id number] Not available 11/30/2022 23:29:02 Son Attack Heart: Deceas ed MIGRATION.893 [id number] Not available 11/30/2022 23:29:02 Maternal Grandfather Attack Heart: Deceas ed MIGRATION.381 [id number] Not available 11/30/2022 23:29:02 Medical History Condition [...] HAVE YOU BEEN HOSPITALIZED OR SEEN IN [facility] ER IN THE PAST YEAR ? N [...] PF 07/27/2022 completed Not Available [facility] 3 23:31:53 Influenza, split virus, quadrivalent, PF 07/23/2021 completed Not Available [facility] 3 23:31:53 Influenza, split virus, quadrivalent, PF 07/27/2023 completed Cristel Gonzalez RN [facility], [facility] [employer] [facility] 07/27/2023 14:56:23 Past Encounters Encounter ID Performer Location Encounter Start Date Encounter Closed Date Diagnosis/Indication Diagnosis SNOMED-CT Code Diagnosis ICD10 Code Diagnosis Note [id number] [facility] [address] [place] [address] 05/06/2021 00:00:00 05/06/2021 18:11:54 [id number] [facility] [address] [place] [address] 06/03/2021 00:00:00 06/03/2021 18:20:29 [id number] [facility] [address] [place] [address] 07/23/2021 00:00:00 07/23/2021 16:35:18 [id number] [facility] [address] [place] [address] 08/13/2021 00:00:00 08/13/2021 11:53:42 [id number] [facility] [address] [facility] [place] [address] 01/12/2022 00:00:00 01/12/2022 09:52:51 [id number] [facility] [address] [place] [address] 03/23/2022 00:00:00 03/23/2022 16:42:48 [id number] [facility] [address] [place] [address] 04/27/2022 00:00:00 04/27/2022 14:46:30 [id number] [facility] [address] [place] [address] 07/26/2022 00:00:00 07/26/2022 18:15:43 [id number] Cristel Ball NP [facility] [address] [place] [address] 02/07/2023 09:49:02 02/07/2023 11:47:29 Depressive disorder 40813260 F32.9 sertraline 100 mg, 1.5 tab po daily. Doing better. Clonazapam prn. Hyperlipidemia 53120066 E78.5 Atorvastat in 40 mg po daily. Tremor 64665901 R25.1 Primidone 50 mg 1/2 tab po daily. Anxiety 85403797 F41.9 Stable. Sertraline 100 mg, 1.5 tab po daily. Clonazepam prn. Anemia screening 3945824 07 Z13.0 Diabetes m ellitus screening 746673588 Z13.1 Thyroid di sorder screening 664407523 Z13.29 [id number] Cristel Ball NP [facility] [address] [address] 07/27/2023 13:56:14 07/27/2023 14:48:12 Hyperlipidemia 53353766 E78.5 Atorvastat in 40 mg po daily. Tremor 33619054 R25.1 Primidone 50 mg 1/2 tab po daily. Depressive disorder 4882 9007 F32.9 Sertraline 100 mg, 1.5 tab po daily. Doing better. Clonazapam prn (average one tablet daily) Anxiety 89575576 F41.9 Stable. Sertraline 100 mg, 1.5 tab po daily. Clonazepam prn. Essential hypertension 53350984 I10 Lisinopril 20 mg po nightly. Administra tion of influenza vaccine 93327504 Z23 Health Concerns Section Related Observation LastModified by Organization Detai ls LastModified Time None Recorded Concern Status LastModified by Organization Details LastModified Time None Recorded Advance Directives Directive Y: Payers Encounter Date Sequence Insurance Name Policy Number Policy Blood Covered Member ID Blood Member ID Guarantor Name 02/07/2023 1 [place] [id number] Huong Teague [id number] Leslie Teague 07/27/2023 1 [place] [id number] Huong Teague [id number] Huong Teague Notes Date Note Type [...] home. Derm- went back to [facility]. Andreea said everything was ok.Did get mammogram. Weight- working on being more active. Got an E-bike. Plans to reduce weight. Left elbow pain and left muscle pain. Off and on, but constant for 1 week. Does use left arm to clean. Cristel Ball NP [address], [facility] [address], [place], [address], [employer] [facility] [employer] 02/07/2023 10:39:04 07/27/2023 text/html Here for med [...] May. Cristel Ball NP [address], [facility] [address], [place], [address], [employer] [facility] [employer] 07/27/2023 14:41:12 OBGyn Episode No OBEpisode recorded.
[2025-01-02 15:26] LABS: Hematocrit 34.8 % (37.0-47.0); Mean Corpuscular HGB Conc 31.6 g/dl (32-36); Mean Corpuscular Hemoglobin 28.7 pg (26-34); Mean Corpuscular Volume 90.9 fl (80-100); Mean Platelet Volume 10.3 fl (7.4-10.4); Platelet Count Result 325 k/mm3 (150-375); Red Blood Count 3.83 M/mm3 (4.2-5.4); Red Cell Distribution Width 13.2 % (11.5-14.5); White Blood Count 9.7 K/mm3 (4.5-10.0)
== END 2025-01-02 15:01 | disposition home or self-care (01) ==
PROVIDERS: PCP Nurse Practitioner Family; Visit Provider Surgery
DX: D62 Acute posthemorrhagic anemia (principal)
CPT/HCPCS: 36415; 85027

== ENCOUNTER 2025-02-11 11:36 | Outpatient (CLI) | payer MEDICARE, SELFPAY ==
--- OUTSIDE RECORDS SUMMARY | 2025-02-11 11:52 | XMS_ITS | Encounter Summary ---
Author Organization [facility] Address [address] [place] [address] Care Team Providers Care Brick Handler Name Role Phone Unavailable Primary Care Provider Unavailabl e Encounter Details Date Type Department Care Team (Late st Contact Info) Description 02/11/2025 10:30 AM CDT Office Visit [facility] Oncology and Hematology - [place] [address] [facility] [address] [place] [address] Jens Turner MD [address] [facility] [address] [place] [address] Chronic anemia (Primary Dx); Malignant neoplasm of colon, unspecified part of colon (CMS/HCC) Social History Tobacco Use Types Packs/Day Years Used Date Smoking Tobacco: Never Smokeless Tobacco: Never Alcohol Use Standard Drinks/Week Comments Yes 0 (1 standard drink = 0.6 oz pur e alcohol) occasional Comments Unknown Sex and Gender Information Value Date Recorded Sex Assigned at Not on file Legal Sex Female 11:01 AM CDT Gender Identity Not on file Sexual Orientation Not on file documented as of this encounter Last Filed Vital Signs Vital Sign Reading Time Taken Comments Blood Pressure 122/81 02/11/2025 10:44 AM CDT Pulse 74 02/11/2025 10:44 AM CDT Temperature 36.2 C (97.2 F) 02/11/2025 10:44 AM CDT Respiratory Rate 15 02/11/2025 10:44 AM CDT Oxygen Saturation 98% 02/11/2025 10:44 AM CDT Inhaled Oxygen Concentration - - Weight 85 kg (187 lb 6.4 oz) 02/11/2025 10:44 AM CDT Height 157.5 cm (5' 2 ) 02/11/2025 10:44 AM CDT Body Mass Index 34.28 02/11/2025 10:44 AM CDT documented in this encounter Plan of Treatment Upcoming Encounters Date Type Department Care Team (Late st Contact Info) Description 02/26/2025 4:30 PM CDT Telephone Check Up [facility] Oncology and Hematology - Natanael [address] [facility] [address] [place] [address] Jens Turner MD [address] [facility] [address] [place] [address] Scheduled Orders Name Type Priority Associated Diagnoses Orde r Schedule CBC WITH DIFFERENTIAL Lab Stat Chronic anemia Expected: 02/11/2025, Expires: 02/11/2026 COMPREHENSIVE METABOLIC PANEL Lab Stat Chronic anemia Expected: 02/11/2025, Expires: 02/11/2026 FERRITIN Lab Routine Chronic anemia Expected: 02/11/2025, Expires: 02/11/2026 IRON, TIBC, AND PERCENT SATURATION Lab Routine Chronic anemia Expected: 02/11/2025, Expires: 02/11/2026 VITAMIN B12 LEVEL Lab Routine Chronic anemia Expected: 02/11/2025, Expires: 02/11/2026 CEA Lab Routine Malignant neoplasm of colon, unspecified part of colon (CMS/HCC) Expected: 02/11/2025, Expires: 02/11/2026 documented as of this encounter Visit Diagnoses Diagnosis Chronic anemia- Primary Anemia, unspecified Malignant neoplasm of colon, unspecified part of colon (CMS/HCC) documented in this encounter
--- OUTSIDE RECORDS SUMMARY | 2025-02-11 11:52 | XMS_ITS | Data Portability ---
Author Organization [place] 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 Plan of Treatment Reminders Order Date Submit Date Provider Last Modified By Organization Details Last Modified Time Details Appointments None recorded. Lab TSH, serum, reflex free T4 [address] [facility], [address] [place], [address], 3 08:54:22 drug screen, urine 2022 023 [facility], [address] [place], [address], 3 14:06:22 lipid panel, serum 2022 023 [facility], [address] [place], [address], 3 20:13:41 CMP, serum or plasma 2022 023 [facility], [address] [place], [address], 3 20:13:46 HbA1c (hemoglobin A1c), blood [address] [facility], [address] [place], [address], 3 10:09:06 CBC w/ auto diff 2022 023 [facility] - Outpatient Lab, [address] [facility] [place], [address], 20:08:56 Referral neurologist referral - eval and treat for tremor. Was a Naseer patient on primadone 2022 023 [email or web address] [facility] - Neurology, [address], [facility] [place], [address], 3 11:26:37 Procedures None recorded. Surgeries None recorded. Imaging None recorded. Medication Orders lisinopril 20 mg tablet 2022 023 [facility], [address] [facility] [address], [address], 14:38:13 Patient TargetsNo targets recorded. Patient Instructions Encounter Date Encounter Id Patient Instructions Last Modified By Organization Details Last Modified Time 02/07/2023 [id number] FU in 4 mo, sooner as needed. Lipid, depression/anxiet y, tremor Not available 02/07/2023 10:37:45 07/27/2023 [id number] FU in 6 mo for weight,, htn, [...] 2016, 39([place] ppl.1 ):s13 -s22 Not Available [facility] (Lab) [address] [place], [address], 03/24/2022 20:14:42 03/23/20 22 03/24/2022 FOLAT E, SERUM /PLAS MA folate 13.8 NG/mL 2.76-2 0.0 Not Available [facility] (Lab) [address] [place], [address], 03/24/2022 16:34:02 03/23/20 22 03/24/2022 VITAM IN B12 (PETRA RIYA ) vb12 561 pg/mL 239-93 1 Not Available [facility] (Lab) [address] [place], [address], 03/24/2022 16:33:57 03/23/20 22 03/24/2022 TSH W/REF ANDREI FT4 TSH with reflex free T4 0.762 uIU/m L 0.465- 4.680 Not Available [facility] (Lab) [address] [place], [address], 03/24/2022 16:11:40 03/23/20 22 03/24/2022 VITAM IN D 25-HY DROXY vd25oh 34.9 NG/mL 30-100 Vitam in D Statu s: Defic ient: <20 ng/mL Insuf ficie nt: 20-29 ng/mL Suffi cient : 30-10 0 ng/mL Not Available [facility] (Lab) [address] [place], [address], 03/24/2022 15:45:15 03/23/20 22 03/24/2022 CBC/C OMPLE TE BLD COUNT W/DIF F white blood cells 9.0 x10'3 /uL 4.2-10 .8 Not Available [facility] (Lab) [address] [place], [address], 03/24/2022 15:28:41 03/23/20 22 03/24/2022 CBC/C OMPLE TE BLD COUNT W/DIF F red blood cells 4.80 x10'6 /uL 3.80-5 .20 Not Available [facility] (Lab) [address] [facility] [place], [address], 03/24/2022 15:28:41 03/23/20 22 03/24/2022 CBC/C OMPLE TE BLD COUNT W/DIF F hemoglobin 13.7 g/dL 12.0-1 5.6 Not Available [facility] (Lab) [address] [place], [address], 03/24/2022 15:28:41 03/23/20 22 03/24/2022 CBC/C OMPLE TE BLD COUNT W/DIF F hematocrit 42.3 % 35.7-4 5.7 Not Available [facility] (Lab) [address] [place], [address], 03/24/2022 15:28:41 03/23/20 22 03/24/2022 CBC/C OMPLE TE BLD COUNT W/DIF F mean red cell volume 88.1 fL 82.0-9 9.0 Not Available [facility] (Lab) [address] [place], [address], 03/24/2022 15:28:41 03/23/20 22 03/24/2022 CBC/C OMPLE TE BLD COUNT W/DIF F mean red cell hemoglobin 28.5 pg 27.0-3 3.0 Not Available [facility] (Lab) [address] [place], [address], 03/24/2022 15:28:41 03/23/20 22 03/24/2022 CBC/C OMPLE TE BLD COUNT W/DIF F mean RBC HGB concentratio n 32.4 g/dL 31.0-3 6.0 Not Available [facility] (Lab) [address] [place], [address], 03/24/2022 15:28:41 03/23/20 22 03/24/2022 CBC/C OMPLE TE BLD COUNT W/DIF F red cell distribution width 13.3 % 11.8-1 5.5 Not Available [facility] (Lab) [address] [place], [address], 03/24/2022 15:28:41 03/23/20 22 03/24/2022 CBC/C OMPLE TE BLD COUNT W/DIF F platelets 239 x10'3 /uL 150-40 0 Not Available [facility] (Lab) [address] [place], [address], 03/24/2022 15:28:41 03/23/20 22 03/24/2022 CBC/C OMPLE TE BLD COUNT W/DIF F mean platelet volume 11.7 fL 9.0-12 .4 Not Available [facility] (Lab) [address] [place], [address], 03/24/2022 15:28:41 03/23/2003/24/2022 CBC/C OMPLE TE BLD COUNT W/DIF F neutrophils 56.2 % 39.0-7 2.0 Not Available [facility] (Lab) [address] [place], [address], 03/24/2022 15:28:41 03/23/2003/24/2022 CBC/C OMPLE TE BLD COUNT W/DIF F lymphocytes 30.5 % 16.0-4 7.0 Not Available [facility] (Lab) [address] [place], [address], 03/24/2022 15:28:41 03/23/20 22 03/24/2022 CBC/C OMPLE TE BLD COUNT W/DIF F monocytes 8.8 % 5.0-12 .0 Not Available [facility] (Lab) [address] [place], [address], 03/24/2022 15:28:41 03/23/20 22 03/24/2022 CBC/C OMPLE TE BLD COUNT W/DIF F eosinophils 3.2 % 1.0-7. 0 Not Available [facility] (Lab) [address] [place], [address], 03/24/2022 15:28:41 03/23/20 22 03/24/2022 CBC/C OMPLE TE BLD COUNT W/DIF F basophils 0.6 % 0.0-2. 0 Not Available [facility] (Lab) [address] [place], [address], 03/24/2022 15:28:41 03/23/20 22 03/24/2022 CBC/C OMPLE TE BLD COUNT W/DIF F immature granulocytes 0.7 % 0.00-0 .50 high Not Available [facility] (Lab) [address] [place], [address], 03/24/2022 15:28:41 03/23/20 22 03/24/2022 CBC/C OMPLE TE BLD COUNT W/DIF F neutrophils, absolute count 5.08 x10'3 /uL 1.5-8. 0 Not Available [facility] (Lab) [address] [place], [address], 03/24/2022 15:28:41 03/23/2003/24/2022 CBC/C OMPLE TE BLD COUNT W/DIF F lymphocytes, absolute count 2.76 x10'3 /uL 1.07-3 .43 Not Available [facility] (Lab) [address] [place], [address], 03/24/2022 15:28:41 03/23/20 22 03/24/2022 CBC/C OMPLE TE BLD COUNT W/DIF F monocytes, absolute count 0.80 x10'3 /uL 0.29-0 .99 Not Available [facility] (Lab) [address] [place], [address], 03/24/2022 15:28:41 03/23/20 22 03/24/2022 CBC/C OMPLE TE BLD COUNT W/DIF F eosinophils, absolute count 0.29 x10'3 /uL 0.02-0 .53 Not Available [facility] (Lab) [address] [place], [address], 03/24/2022 15:28:41 03/23/20 22 03/24/2022 CBC/C OMPLE TE BLD COUNT W/DIF F basophils, absolute count 0.05 x10'3 /uL 0.01-0 .08 Not Available [facility] (Lab) [address] [place], [address], 03/24/2022 15:28:41 03/23/20 22 03/24/2022 CBC/C OMPLE TE BLD COUNT W/DIF F immature granulocytes ,absolute 0.06 x10'3 /uL 0.00-0 .05 high Not Available [facility] (Lab) [address] [place], [address], 03/24/2022 15:28:41 03/23/20 22 03/24/2022 CBC/C OMPLE TE BLD COUNT W/DIF F nucleated red blood cells 0.0 % -0 Not Available [facility] (Lab) [address] [place], [address], 03/24/2022 15:28:41 03/23/20 22 03/24/2022 CBC/C OMPLE TE BLD COUNT W/DIF F NRBC# 0.00 x10'3 /uL Not Available [facility] (Lab) [address] [place], [address], 03/24/2022 15:28:41 03/23/20 22 03/24/2022 COMPR EHENS VIRIDIANA METAB OLIC PANEL sodium 135 mmol/ L 137-14 5 low Not Available [facility] (Lab) [address] [place], [address], 03/24/2022 15:22:13 03/23/20 22 03/24/2022 COMPR EHENS VIRIDIANA METAB OLIC PANEL potassium 4.1 mmol/ L 3.5-5. 1 Not Available [facility] (Lab) [address] [place], [address], 03/24/2022 15:22:13 03/23/20 22 03/24/2022 COMPR EHENS VIRIDIANA METAB OLIC PANEL chloride 103 mmol/ L 98-107 Not Available [facility] (Lab) [address] [place], [address], 03/24/2022 15:22:13 03/23/20 22 03/24/2022 COMPR EHENS VIRIDIANA METAB OLIC PANEL carbon dioxide 25 mmol/ L 22-30 Not Available [facility] (Lab) [address] [place], [address], 03/24/2022 15:22:13 03/23/20 22 03/24/2022 COMPR EHENS VIRIDIANA METAB OLIC PANEL anion gap 11.1 mmol/ L 14-22 low Not Available [facility] (Lab) [address] [place], [address], 03/24/2022 15:22:13 03/23/20 22 03/24/2022 COMPR EHENS VIRIDIANA METAB OLIC PANEL glucose 80 mg/dL 70-99 Not Available [facility] (Lab) [address] [place], [address], 03/24/2022 15:22:13 03/23/20 22 03/24/2022 COMPR EHENS VIRIDIANA METAB OLIC PANEL BUN 14 mg/dL 8-19 Not Available [facility] (Lab) [address] [place], [address], 03/24/2022 15:22:13 03/23/20 22 03/24/2022 COMPR EHENS VIRIDIANA METAB OLIC PANEL creatinine 0.71 mg/dL 0.66-1 .25 Not Available [facility] (Lab) [address] [place], [address], 03/24/2022 15:22:13 03/23/20 22 03/24/2022 COMPR EHENS VIRIDIANA METAB OLIC PANEL GFR >60 Refer ence Range : [place] GFR Healt hy Adult : >60 [...] or ethni c subgr oups, such as Hismi nics. Outsi de the valid ated cece [...] s/kdo qi/gf r_cal culat or Not Available [facility] (Lab) [address] [place], [address], 03/24/2022 15:22:13 03/23/20 22 03/24/2022 COMPR EHENS VIRIDIANA METAB OLIC PANEL alkaline phosphatase 134 U/L 38-126 high Not Available [facility] (Lab) [address] [place], [address], 03/24/2022 15:22:13 03/23/20 22 03/24/2022 COMPR EHENS VIRIDIANA METAB OLIC PANEL alanine aminotransfe rase 20 U/L 0-35 Not Available [facility] (Lab) [address] [place], [address], 03/24/2022 15:22:13 03/23/20 22 03/24/2022 COMPR EHENS VIRIDIANA METAB OLIC PANEL aspartate aminotransfe rase 28 U/L 15-37 Not Available [facility] (Lab) [address] [place], [address], 03/24/2022 15:22:13 03/23/20 22 03/24/2022 COMPR EHENS VIRIDIANA METAB OLIC PANEL bilirubin, total 0.50 mg/dL 0.20-1 .30 Not Available [facility] (Lab) [address] [place], [address], 03/24/2022 15:22:13 03/23/20 22 03/24/2022 COMPR EHENS VIRIDIANA METAB OLIC PANEL calcium 10.0 mg/dL 8.4-10 .2 Not Available [facility] (Lab) [address] [place], [address], 03/24/2022 15:22:13 03/23/20 22 03/24/2022 COMPR EHENS VIRIDIANA METAB OLIC PANEL total protein 7.7 g/dL 6.3-8. 2 Not Available [facility] (Lab) [address] [place], [address], 03/24/2022 15:22:13 03/23/20 22 03/24/2022 COMPR EHENS VIRIDIANA METAB OLIC PANEL albumin 4.7 g/dL 3.0-4. 4 high Not Available [facility] (Lab) [address] [place], [address], 03/24/2022 15:22:13 03/23/20 22 03/24/2022 COMPR EHENS VIRIDIANA METAB OLIC PANEL globulin 3.0 g/dL 2.6-4. 2 Not Available [facility] (Lab) [address] [place], [address], 03/24/2022 15:22:13 03/23/20 22 03/24/2022 COMPR EHENS VIRIDIANA METAB OLIC PANEL A/G ratio 1.6 ratio 1.0-2. 0 Not Available [facility] (Lab) [address] [place], [address], 03/24/2022 15:22:13 03/23/20 22 03/24/2022 LIPID PANEL cholesterol 242 mg/dL 140-19 9 high NIH JOSE NSUS RECOM MENDA TION FOR CANDY STERO L: ADULT CHILD LOW RISK: <200 <170 BORDE RLINE : <200- 239 ----- HIGH RISK: >240 >200 Not Available [facility] (Lab) [address] [place], [address], 03/24/2022 15:22:03 03/23/20 22 03/24/2022 LIPID PANEL triglyceride s 220 mg/dL 0-150 high NIH JOSE NSUS REPOR T RECOM MENDA TION FOR TRIGL YCERI JOSE: ADULT CHILD LOW RISK: <150 ----- BODER LINE: 150-1 99 ----- HIGH RISK: >200 ----- Not Available [facility] (Lab) [address] [place], [address], 03/24/2022 15:22:03 03/23/20 22 03/24/2022 LIPID PANEL HDL cholesterol 52 mg/dL 40- Not Available [facility] (Lab) [address] [place], [address], 03/24/2022 15:22:03 03/23/20 22 03/24/2022 LIPID PANEL [...] WILL NOT BE REPOR LAZARA. Not Available [facility] (Lab) [address] [place], [address], 03/24/2022 15:22:03 02/08/2002/07/2023 CBC/C OMPLE TE BLD COUNT W/DIF F white blood cells 7.5 x10'3 /uL 4.2-10 .8 Not Available [facility] (Lab) [address] [place], [address], 02/07/2023 20:08:55 02/08/2002/07/2023 CBC/C OMPLE TE BLD COUNT W/DIF F red blood cells 4.58 x10'6 /uL 3.80-5 .20 Not Available [facility] (Lab) [address] [place], [address], 02/07/2023 20:08:55 02/08/2002/07/2023 CBC/C OMPLE TE BLD COUNT W/DIF F hemoglobin 13.1 g/dL 12.0-1 5.6 Not Available [facility] (Lab) [address] [place], [address], 02/07/2023 20:08:55 02/08/2002/07/2023 CBC/C OMPLE TE BLD COUNT W/DIF F hematocrit 40.6 % 35.7-4 5.7 Not Available [facility] (Lab) [address] [place], [address], 02/07/2023 20:08:55 02/08/20 23 02/07/2023 CBC/C OMPLE TE BLD COUNT W/DIF F mean red cell volume 88.6 fL 82.0-9 9.0 Not Available [facility] (Lab) [address] [place], [address], 02/07/2023 20:08:55 02/08/20 23 02/07/2023 CBC/C OMPLE TE BLD COUNT W/DIF F mean red cell hemoglobin 28.6 pg 27.0-3 3.0 Not Available [facility] (Lab) [address] [place], [address], 02/07/2023 20:08:55 02/08/20 23 02/07/2023 CBC/C OMPLE TE BLD COUNT W/DIF F mean RBC HGB concentratio n 32.3 g/dL 31.0-3 6.0 Not Available [facility] (Lab) [address] [place], [address], 02/07/2023 20:08:55 02/08/20 23 02/07/2023 CBC/C OMPLE TE BLD COUNT W/DIF F red cell distribution width 13.3 % 11.8-1 5.5 Not Available [facility] (Lab) [address] [place], [address], 02/07/2023 20:08:55 02/08/20 23 02/07/2023 CBC/C OMPLE TE BLD COUNT W/DIF F platelets 243 x10'3 /uL 150-40 0 Not Available [facility] (Lab) [address] [place], [address], 02/07/2023 20:08:55 02/08/20 23 02/07/2023 CBC/C OMPLE TE BLD COUNT W/DIF F mean platelet volume 11.6 fL 9.0-12 .4 Not Available [facility] (Lab) [address] [place], [address], 02/07/2023 20:08:55 02/08/20 23 02/07/2023 CBC/C OMPLE TE BLD COUNT W/DIF F neutrophils 56.4 % 39.0-7 2.0 Not Available [facility] (Lab) [address] [place], [address], 02/07/2023 20:08:55 02/08/20 23 02/07/2023 CBC/C OMPLE TE BLD COUNT W/DIF F lymphocytes 33.1 % 16.0-4 7.0 Not Available [facility] (Lab) [address] [place], [address], 02/07/2023 20:08:55 02/08/20 23 02/07/2023 CBC/C OMPLE TE BLD COUNT W/DIF F monocytes 7.7 % 5.0-12 .0 Not Available [facility] (Lab) [address] [place], [address], 02/07/2023 20:08:55 02/08/20 23 02/07/2023 CBC/C OMPLE TE BLD COUNT W/DIF F eosinophils 2.0 % 1.0-7. 0 Not Available [facility] (Lab) [address] [place], [address], 02/07/2023 20:08:55 02/08/20 23 02/07/2023 CBC/C OMPLE TE BLD COUNT W/DIF F basophils 0.5 % 0.0-2. 0 Not Available [facility] (Lab) [address] [place], [address], 02/07/2023 20:08:55 02/08/20 23 02/07/2023 CBC/C OMPLE TE BLD COUNT W/DIF F immature granulocytes 0.3 % 0.00-0 .50 Not Available [facility] (Lab) [address] [place], [address], 02/07/2023 20:08:55 02/08/20 23 02/07/2023 CBC/C OMPLE TE BLD COUNT W/DIF F neutrophils, absolute count 4.24 x10'3 /uL 1.5-8. 0 Not Available [facility] (Lab) [address] [place], [address], 02/07/2023 20:08:55 02/08/20 23 02/07/2023 CBC/C OMPLE TE BLD COUNT W/DIF F lymphocytes, absolute count 2.49 x10'3 /uL 1.07-3 .43 Not Available [facility] (Lab) [address] [place], [address], 02/07/2023 20:08:55 02/08/20 23 02/07/2023 CBC/C OMPLE TE BLD COUNT W/DIF F monocytes, absolute count 0.58 x10'3 /uL 0.29-0 .99 Not Available [facility] (Lab) [address] [place], [address], 02/07/2023 20:08:55 02/08/20 23 02/07/2023 CBC/C OMPLE TE BLD COUNT W/DIF F eosinophils, absolute count 0.15 x10'3 /uL 0.02-0 .53 Not Available [facility] (Lab) [address] [place], [address], 02/07/2023 20:08:55 02/08/20 23 02/07/2023 CBC/C OMPLE TE BLD COUNT W/DIF F basophils, absolute count 0.04 x10'3 /uL 0.01-0 .08 Not Available [facility] (Lab) [address] [place], [address], 02/07/2023 20:08:55 02/08/20 23 02/07/2023 CBC/C OMPLE TE BLD COUNT W/DIF F immature granulocytes ,absolute 0.02 x10'3 /uL 0.00-0 .05 Not Available [facility] (Lab) [address] [place], [address], 02/07/2023 20:08:55 02/08/20 23 02/07/2023 CBC/C OMPLE TE BLD COUNT W/DIF F nucleated red blood cells 0.0 % -0 Not Available [facility] (Lab) [address] [place], [address], 02/07/2023 20:08:55 02/08/20 23 02/07/2023 CBC/C OMPLE TE BLD COUNT W/DIF F NRBC# 0.00 x10'3 /uL Not Available [facility] (Lab) [address] [place], [address], 02/07/2023 20:08:55 02/08/20 23 02/07/2023 LIPID PANEL cholesterol 165 mg/dL 140-19 9 NIH JOSE NSUS RECOM MENDA TION FOR CANDY STERO L: ADULT CHILD LOW RISK: <200 <170 BORDE RLINE : <200- 239 ----- HIGH RISK: >240 >200 Not Available [facility] (Lab) [address] [place], [address], 02/07/2023 20:13:41 02/08/20 23 02/07/2023 LIPID PANEL triglyceride s 163 mg/dL 0-150 high NIH JOSE NSUS REPOR T RECOM MENDA TION FOR TRIGL YCERI JOSE: ADULT CHILD LOW RISK: <150 ----- BODER LINE: 150-1 99 ----- HIGH RISK: >200 ----- Not Available [facility] (Lab) [address] [place], [address], 02/07/2023 20:13:41 02/08/20 23 02/07/2023 LIPID PANEL HDL cholesterol 45 mg/dL 40- Not Available [facility] (Lab) [address] [place], [address], 02/07/2023 20:13:41 02/08/20 23 02/07/2023 LIPID PANEL [...] WILL NOT BE REPOR LAZARA. Not Available [facility] (Lab) [address] [place], [address], 02/07/2023 20:13:41 02/08/20 23 02/07/2023 COMPR EHENS VIRIDIANA METAB OLIC PANEL sodium 138 mmol/ L 137-14 5 Not Available [facility] (Lab) [address] [place], [address], 02/07/2023 20:13:46 02/08/20 23 02/07/2023 COMPR EHENS VIRIDIANA METAB OLIC PANEL potassium 4.3 mmol/ L 3.5-5. 1 Not Available [facility] (Lab) [address] [place], [address], 02/07/2023 20:13:46 02/08/20 23 02/07/2023 COMPR EHENS VIRIDIANA METAB OLIC PANEL chloride 104 mmol/ L 98-107 Not Available [facility] (Lab) [address] [place], [address], 02/07/2023 20:13:46 02/08/20 23 02/07/2023 COMPR EHENS VIRIDIANA METAB OLIC PANEL carbon dioxide 25 mmol/ L 22-30 Not Available [facility] (Lab) [address] [place], [address], 02/07/2023 20:13:46 02/08/20 23 02/07/2023 COMPR EHENS VIRIDIANA METAB OLIC PANEL anion gap 13.3 mmol/ L 14-22 low Not Available [facility] (Lab) [address] [place], [address], 02/07/2023 20:13:46 02/08/20 23 02/07/2023 COMPR EHENS VIRIDIANA METAB OLIC PANEL glucose 94 mg/dL 70-99 Not Available [facility] (Lab) [address] [place], [address], 02/07/2023 20:13:46 02/08/20 23 02/07/2023 COMPR EHENS VIRIDIANA METAB OLIC PANEL BUN 15 mg/dL 8-19 Not Available [facility] (Lab) [address] [place], [address], 02/07/2023 20:13:46 02/08/20 23 02/07/2023 COMPR EHENS VIRIDIANA METAB OLIC PANEL creatinine 0.72 mg/dL 0.66-1 .25 Not Available [facility] (Lab) [address] [place], [address], 02/07/2023 20:13:46 02/08/20 23 02/07/2023 COMPR EHENS VIRIDIANA METAB OLIC PANEL GFR >60 Refer ence Range : [place] ge GFR Healt hy Adult : >60 [...] calcu lator is avail able on the [facility] websi te: [email or web address] :[email or web address] [email or web address] rg/pr ofess ional s/kdo qi/gf r_cal culat or Not Available [facility] (Lab) [address] [place], [address], 02/07/2023 20:13:46 02/08/20 23 02/07/2023 COMPR EHENS VIRIDIANA METAB OLIC PANEL alkaline phosphatase 126 U/L 38-126 Not Available [facility] (Lab) [address] [place], [address], 02/07/2023 20:13:46 02/08/20 23 02/07/2023 COMPR EHENS VIRIDIANA METAB OLIC PANEL alanine aminotransfe rase 24 U/L 0-35 Not Available [facility] (Lab) [address] [place], [address], 02/07/2023 20:13:46 02/08/20 23 02/07/2023 COMPR EHENS VIRIDIANA METAB OLIC PANEL aspartate aminotransfe rase 26 U/L 15-37 Not Available [facility] (Lab) [address] [place], [address], 02/07/2023 20:13:46 02/08/20 23 02/07/2023 COMPR EHENS VIRIDIANA METAB OLIC PANEL bilirubin, total 0.40 mg/dL 0.20-1 .30 Not Available [facility] (Lab) [address] [place], [address], 02/07/2023 20:13:46 02/08/20 23 02/07/2023 COMPR EHENS VIRIDIANA METAB OLIC PANEL calcium 9.9 mg/dL 8.4-10 .2 Not Available [facility] (Lab) [address] [place], [address], 02/07/2023 20:13:46 02/08/20 23 02/07/2023 COMPR EHENS VIRIDIANA METAB OLIC PANEL total protein 7.2 g/dL 6.3-8. 2 Not Available [facility] (Lab) [address] [place], [address], 02/07/2023 20:13:46 02/08/20 23 02/07/2023 COMPR EHENS VIRIDIANA METAB OLIC PANEL albumin 4.5 g/dL 3.0-4. 4 high Not Available [facility] (Lab) [address] [place], [address], 02/07/2023 20:13:46 02/08/20 23 02/07/2023 COMPR EHENS VIRIDIANA METAB OLIC PANEL globulin 2.7 g/dL 2.6-4. 2 Not Available [facility] (Lab) [address] [place], [address], 02/07/2023 20:13:46 02/08/20 23 02/07/2023 COMPR EHENS VIRIDIANA METAB OLIC PANEL A/G ratio 1.7 ratio 1.0-2. 0 Not Available [facility] (Lab) [address] [place], [address], 02/07/2023 20:13:46 02/08/20 23 02/07/2023 TSH W/REF ANDREI FT4 TSH with reflex free T4 2.050 uIU/m L 0.465- 4.680 Not Available [facility] (Lab) [address] [place], [address], 02/07/2023 20:29:53 02/08/20 23 02/07/2023 HEMOG LOBIN A1C HA1C 5.6 % 4.0-6. 0 Diabe tori Veena villanueva Crite risa: <5.7% Consi stent with absen ce of diabe tori 5.7-6 .4% Consi stent with incre ased risk for diabe tori (pred iabet es) >OR=6 .5% Consi stent with diabe tori REFER ENCE: Diabe tori Care 2016, 39([place] ppl[facility]1 ):s13 -s22 Not Available [facility] [address] [place], [address], 02/07/2023 21:28:40 12/08/19 23 12/07/2022 MAMMO , veena villanueva, digit al, bilat eral No observ ation record ed. [email or web address] [facility] [address], [place], [address], 12/12/2022 16:39:42 Result Notes None recorded. Problems Name Problem SNOMED Code Status Onset Date Resolution Date Notes Provider Name and Address Organization Details Recorded Time Hypercholester olemia 33527738 Active 2020 Not Available [facility] 3 23:30:25 Tremor 19983301 Active 2020 Not Available [facility] 3 23:30:25 Depressive disorder 74417146 Active 2020 Not Available [facility] 3 23:30:25 Anxiety 63676514 Active 2020 Not Available [facility] 3 23:30:25 Hyperlipidemia 53837147 Active 2020 Not Available [facility] 3 23:30:25 Essential hypertension 36599208 Active 2022 Cristel Ball NP [address], [facility] [address], [place], [address] , [facility] 3 14:37:25 Notes:squamous cell skin can cer back 10/2021 Problem Notes None recorded. Procedures Surgical History Date Name Laterality Status Provider Name and Address Organization Details Recorded Time 3 Most Recent Mammogram completed Cristel Gonzalez RN [employer] 02/07/2023 10:02:21 Date of Last Pap Smear completed Not Available [facility] 11/30/2022 23:28:57 Imaging Results Imaging Date Name Status LastModified by Organiz ation Details LastModified Time 12/07/2022 MAMMO, screening, digital, bilateral completed [email or web address] [facility] [address], [place], [address], 12/12/2022 16:39:42 Procedure Notes None recorded. Medical [...] % 99 % 64 /min 97.5 [degF] 15205.0 7 g 126 mm[Hg] 76 mm[Hg] Not Available [facility] 3 23:30:02 Date Recorded Body mass index (BMI) Body height Oxygen saturation Oxygen saturation in Arterial blood by Pulse oximetry Heart rate Body temperature Body weight Systolic blood pressure Diastolic blood pressure Provider Name and Address Organization Details Last Updated DateTime 2 35.4 kg/m2 157.48 cm 98 % 98 % 76 /min 98.2 [degF] 27722.4 3 g 122 mm[Hg] 80 mm[Hg] Not Available [facility] 3 23:30:02 Date Recorded Body height Body mass index (BMI) Body weight Body temperature Heart rate Heart rate Respiratory rate Oxygen saturation Oxygen saturation in Arterial blood by Pulse oximetry Pain severity - 0-10 verbal numeric rating [Score] - Reported Systolic blood pressure Diastolic blood pressure Provider Name and Address Organization Details Last Updated DateTime 3 157.48 cm 36.6 kg/m2 32880.4 7 g 96.9 [degF] 67 /min 67 /min 16 /min 97 % 97 % 0 158 mm[Hg] 86 mm[Hg] Cristel Gonzalez RN [facility] [facility] 3 10:00:33 Date Recorded Body height Body mass index (BMI) Body weight Body temperature Heart rate Respiratory rate Oxygen saturation Oxygen saturation in Arterial blood by Pulse oximetry Pain severity - 0-10 verbal numeric rating [Score] - Reported Systolic blood pressure Diastolic blood pressure Provider Name and Address Organization Details Last Updated DateTime 3 157.48 cm 36.3 kg/m2 12060.0 9 g 97 [degF] 62 /min 16 /min 98 % 98 % 0 170 mm[Hg] 100 mm[Hg] Cristel Gonzalez RN [facility] [employer] [facility] 3 14:10:08 Social History Question Answer Notes LastModified by Organizat ion Details LastModified Time Tobacco Smoking Status Never Smoker Not Available [facility] 11/30/2022 23:28:34 Do You Have An Advance Directive? Yes Information not available 02/07/2023 Do You Wear A Helmet When Biking? No MIGRATION.[id number] Information not available 11/30/2022 Is Blood Transfusion Acceptable In An Emergency? Yes Information not available 02/07/2023 What Is Your Level Of Caffeine Consumption? Moderate [id number] Information not available 11/30/2022 What Is Your Code Status? DNR Information not available 02/07/2023 In The 14 Days Before Symptom Onset, Have You Had Close Contact With A Laboratory-confi rmed COVID-19 While That Case Was Ill? No MIGRATION.30390 [id number] Information not available 11/30/2022 In The 14 Days Before Symptom Onset, Have You Had Close Contact With A Person Who Is Under Investigation For COVID-19 While That Person Was Ill? No MIGRATION.34375 42779 Information not available 11/30/2022 What Type Of Diet Are You Following? REGULAR MIGRATION.02542 26591 Information not available 11/30/2022 Have There Been Any Changes To Your Family Or Social Situation? Yes Son Passed (2019) MIGRATION.89283 37458 Information not available 11/30/2022 Do You Use Insect Repellent Routinely? Yes MIGRATION.90081 33139 Information not available 11/30/2022 Where Do You Live? SingleLevelHouse Information not available 02/07/2023 Do You Have A Medical Power Of Business Intelligence Manager? Yes Information not available 02/07/2023 Have You Ever Been Counseled For Unhealthy Alcohol Use? No MIGRATION.97755 15025 Information not available 11/30/2022 Do You Have Any Pets? No MIGRATION.57499 15808 Information not available 11/30/2022 What Is Your Relationship Status? MIGRATION.62658 17876 Information not available 11/30/2022 Do You Use Your Seat Belt Or Car Seat Routinely? Yes MIGRATION.79660 07787 Information not available 11/30/2022 Do You Have Smoke And Carbon Monoxide Detectors In Your Home? Yes MIGRATION.56386 85697 Information not available 11/30/2022 Are There Any Smokers In Your House? No MIGRATION.04093 49280 Information not available 11/30/2022 Do You Participate In Social Media? Yes MIGRATION.37147 21664 Information not available 11/30/2022 Do You Use Sunscreen Routinely? Yes MIGRATION.58800 83443 Information not available 11/30/2022 Has Tobacco Cessation Counseling Been Provided? No MIGRATION.12697 29095 Information not available 11/30/2022 Have You Recently Traveled Abroad? No MIGRATION.90377 31505 Information not available 11/30/2022 Do You Have Any Dietary Restrictions? No MIGRATION.61189 10088 Information not available 11/30/2022 Sex: Unknown Functional Status Question Answer Note LastModified by Organizat ion Details LastModified Time Do you use any illicit or recreational drugs? No MIGRATION.957408 5667 Information not available 11/30/2022 Do you or have you ever used any other forms of tobacco or nicotine? No MIGRATION.564788 1347 Information not available 11/30/2022 What is your level of alcohol consumption? Occasional MIGRATION.104544 2848 Information not available 11/30/2022 Are you currently employed? 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 None Information not available 07/27/2023 Mental Status Question Answer Note LastModified by Organizat ion Details LastModified Time Do you feel stressed (tense, restless, nervous, or anxious, or unable to sleep at night)? [id number] MIGRATION.[id number] Information not available 11/30/2022 Family History Relationship Description Onset Age of this Age Resolved Age Notes LastModified by Organization Details LastModified Time Father Diabetes mellitus MIGRATION.797 [id number] Not available 11/30/2022 23:29:02 Paternal Grandmother Heart disease MIGRATION.131 [id number] Not available 11/30/2022 23:29:02 Son Attack Heart: Deceas ed MIGRATION.830 [id number] Not available 11/30/2022 23:29:02 Maternal Grandfather Attack Heart: Deceas ed MIGRATION.850 [id number] Not available 11/30/2022 23:29:02 Medical History Condition Response BLINDNESS N RHEUMATIC FEVER N BLADDER PROBLEMS N KIDNEY STONES N MRSA N OTHER # 1 N POLIO N LUNG DISEASE/DISORDER N HISTORY OF DRUG ABUSE N RADIATION / CHEMOTHERAPY N COPD N Other # 2 N BLOOD DISEASES N SURGERY N EAR OR HEARING PROBLEMS N MUMPS N SHINGLES N BOWEL PROBLEMS N FEMALE PROBLEMS / INFECTIONS N DEPRESSION (INCLUDING POST ) N STROKE/TIA N THYROID DISEASE N ULCERS N BENIGN PROSTATIC HYPERPLASIA N MEASLES N CERVICALGIA N HYPOTENSION N TB SKIN TEST N MYOCARDIAL INFARCTION N PARAPELGIA N OBESITY [...] GLAUCOMA N FOOT PROBLEM N DIVERTICULITIS N CHICKENPOX N SLEEP APNEA N ALLERGIES/HAYFEVER N INFECTIOUS DISEASE N HEART ARRHYTHMIA N PROSTATE N INSOMNIA N HIGH CHOLESTEROL / HYPERLIPIDEMIA Y HYPERTHYROIDISM N EYE PROBLEMS N EATING DISORDER N EDEMA N CHRONIC PAIN SYNDROME N CONSTIPATION N CAROTID BLOCKAGE N BACK / NECK PROBLEMS N HAVE YOU BEEN HOSPITALIZED OR SEEN IN [facility] IN THE PAST YEAR ? N [...] DISORDER N ALZHEIMER'S DISEASE N PAIN N HERPES N DEMENTIA N HEADACHES/MIGRAINES N SEIZURES/EPILEPSY N VASCULAR DISEASE N PACEMAKER N DIZZINESS N HEART DISEASE/HEART PROBLEMS N KIDNEY DISEASE N DEVELOPMENTAL OR BEHAVIORAL DISORDERS N MULTIPLE SCLEROSIS N SCARLET FEVER N MENTAL DISORDER/ILLNESS N CARDIAC ARRHYTHMIA N CANCER: SPECIFY N PNEUMONIA N ATRIAL FIBRILLATION N Gall [...] virus, quadrivalent, PF 07/27/2022 completed Not Available [facility] 3 23:31:53 Influenza, split virus, quadrivalent, PF 07/23/2021 completed Not Available [facility] 3 23:31:53 Influenza, split virus, quadrivalent, PF 07/27/2023 completed Cristel Gonzalez RN [facility] [place] - [facility] 07/27/2023 14:56:23 Past Encounters Encounter ID Performer Location Encounter Start Date Encounter Closed Date Diagnosis/Indication Diagnosis SNOMED-CT Code Diagnosis ICD10 Code Diagnosis Note [id number] Praveen Aquino MD [facility] [address] [place] [address] 05/06/2021 00:00:00 05/06/2021 18:11:54 [id number] [address] [facility] [address] [place] [address] 06/03/2021 00:00:00 06/03/2021 18:20:29 [id number] Praveen Aquino MD [facility] [address] [place] [address] 07/23/2021 00:00:00 07/23/2021 16:35:18 [id number] [address] [facility] [address] [place] [address] 08/13/2021 00:00:00 08/13/2021 11:53:42 [id number] [facility] [address] [place] [address] 01/12/2022 00:00:00 01/12/2022 09:52:51 [id number] [address] [facility] [address] [place] [address] 03/23/2022 00:00:00 03/23/2022 16:42:[id number] [facility] [address] [place] [address] 04/27/2022 00:00:00 04/27/2022 14:46:30 [id number] [address] [facility] [address] [place] [address] 07/26/2022 00:00:00 07/26/2022 18:15:[id number] [facility] [address] [place] [address] 02/07/2023 09:49:02 02/07/2023 11:47:29 Depressive disorder 01420651 F32.9 sertraline 100 mg, 1.5 tab po daily. Doing better. Clonazapam prn. Hyperlipidemia 06282585 E78.5 Atorvastat in 40 mg po daily. Tremor 07948081 R25.1 Primidone 50 mg 1/2 tab po daily. Anxiety 68867877 F41.9 Stable. Sertraline 100 mg, 1.5 tab po daily. Clonazepam prn. Anemia screening 4343192 07 Z13.0 Diabetes m ellitus screening 940604527 Z13.1 Thyroid di sorder screening 490840276 Z13.29 [id number] Cristel Ball NP [facility] [address] [address] 07/27/2023 13:56:14 07/27/2023 14:48:12 Hyperlipidemia 37570500 E78.5 Atorvastat in 40 mg po daily. Tremor 78109757 R25.1 Primidone 50 mg 1/2 tab po daily. Depressive disorder 3548 9007 F32.9 Sertraline 100 mg, 1.5 tab po daily. Doing better. Clonazapam prn (average one tablet daily) Anxiety 68239003 F41.9 Stable. Sertraline 100 mg, 1.5 tab po daily. Clonazepam prn. Essential hypertension 56156552 I10 Lisinopril 20 mg po nightly. Administra tion of influenza vaccine 65329088 Z23 Health Concerns Section Related Observation LastModified by Organization Detai ls LastModified Time None Recorded Concern Status LastModified by Organization Details LastModified Time None Recorded Advance Directives Directive Y: Payers Encounter Date Sequence Insurance Name Policy Number Policy Blood Covered Member ID Blood Member ID Guarantor Name 02/07/2023 1 [place] [id number] Huong Teague [id number] Huong Teague 07/27/2023 1 [place]) [id number] Huong Teague [id number] Huong Teague Notes Date Note Type [...] Works from home. Derm- went back to [facility]. Andreea said everything was ok.Did get mammogram. Weight- working on being more active. Got an E-bike. Plans to reduce weight. Left elbow pain and left muscle pain. Off and on, but constant for 1 week. Does use left arm to clean. Cristel Ball NP [address], [place], [address], [employer] 02/07/2023 10:39:04 07/27/2023 text/html Here for med [...] primidone since May. Cristel Ball NP [address], [address], [place], [address], [email or web address] 07/27/2023 14:41:12 OBGyn Episode No OBEpisode recorded.
--- OUTSIDE RECORDS SUMMARY | 2025-02-11 11:52 | XMS_ITS | Clinical Summary ---
Author Organization [facility] Address [facility] [place] [address] Care Team Providers Care Credit Risk Associate Name Role Phone Unavailable Primary Care Provider Unavailabl e Allergies No known active allergies Medications multi vitamin/minerals tablet Take 1 tablet by mouth daily. Active Cholecalciferol (VITAMIN D) 50 MCG (2000 UT) Tab Take 1 tablet by mouth daily. Active Felch-3 Fatty Acids (FISH OIL) 500 MG capsule [...] 09/24/2019 Hyperlipidemia 05/20/2018 BMI 36.0-36.9,adult 08/03/2017 Immunizations Immunization Administration Dates Next Due Influenza (Generic) 09/13/2016,06/25/2013 [...] 1960 Hepatitis C 1976 Mammogram Screening 1998 Pneumococcal Vaccine: 50+ Ye ars (1 of 1 - PCV) 2008 Zoster Vaccines (1 of 2) 2008 Dexa Scan (General) 2023 COVID-19 Vaccine (1 - 2023-2 5 season) 2024 DTaP, Tdap and Td Vaccines ( 2 [...] 20 Months Aged Out No longer eligible based on patient's age to complete this topic Insurance [facility]
--- OUTSIDE RECORDS SUMMARY | 2025-02-11 11:52 | XMS_ITS | Clinical Summary ---
Author Organization [facility]iss [facility] Address [address] [place] [address] Care Team Providers Care Atmospheric Chemist Name Role Phone Unavailable Primary Care Provider Unavailabl e Allergies No known active allergies Medications atorvastatin (LIPITOR) 40 mg tablet Take 1 Tablet by mouth daily. 11/27/2024 Active primidone (MYSOLINE) 50 mg tablet Take 0.5 Tablets by mouth 2 times daily. 11/26/2024 Active Active Problems No known active problems Encounters Date Type Department Care Team Description 02/11/2025 10:30 AM CDT Office Visit [facility] Oncology and Hematology - [place] [address] [place] [address] Jens Turner MD Chronic anemia (Primary Dx); Malignant neoplasm of colon, unspecified part of colon (CMS/HCC) from Last 3 Months Family History Medical History Relation Name Comments Heart Disease Child 1 No Known Problems Child 2 No Known Problems Child 3 No Known Problems Child 4 Diabetes Father Lung Cancer Father No Known Problems Mother No Known Problems Sister 1 No Known Problems Sister 2 Relation Name Status Comments Child 1 Child 2 Alive Child 3 Alive Child 4 Alive Father Mother Alive Sister 1 Alive Sister 2 Alive Social History Tobacco Use Types Packs/Day Years Used Date Smoking Tobacco: Never Smokeless Tobacco: Never Alcohol Use Standard Drinks/Week Comments Yes 0 (1 standard drink = 0.6 oz pur e alcohol) occasional Comments Unknown Sex and Gender Information Value Date Recorded Sex Assigned at Not on file Legal Sex Female 11:01 AM CDT Gender Identity Not on file Sexual Orientation Not on file Last Filed Vital Signs Vital Sign Reading [...] Mass Index 34.28 02/11/2025 10:44 AM CDT Plan of Treatment Upcoming Encounters Date Type Department Care Team (Late st Contact Info) Description 02/26/2025 4:30 PM CDT Telephone Check Up [facility] On[facility] and Hematology [facility] [address] [facility] [address] [place] [address] Jens Turner MD [address] [facility] [address] [place] [address] Health Maintenance Due Date Last Done Comments Pre-Diabetes and Diabetes Screening 1960 BREAST CANCER SCREENING 1998 COLORECTAL SCREENING 2003 Colorectal Cancer Screening 2003 FIT-DNA Q 3 years 2003 FIT/FOBT Q 1 year 2003 Flex Sig/CT Colonography Q 5 years 2003 PNEUMOCOCCAL VACCINE 50+ YEARS (1 of 1 - PCV) 11/10/19 09 ZOSTER VACCINE (1 of 2) 2008 OSTEOPOROSIS SCREENING 2023 INFLUENZA VACCINE (#1) 2024 Medicare [place] ([place] Prev entative Visit/Annual Wellness Visit 10/02/2024 DTAP/TDAP/TD VACCINES (2 - Td or Tdap) 09/13/2026 RSV VACCINE (60+ or ) (1 - 1-dose 75+ series) 2033 Insurance [employer] [facility]
[2025-02-11 12:47] LABS: Hematocrit 39.5 % (37.0-47.0); Hemoglobin 12.6 g/dL (12.0-15.0); Mean Corpuscular HGB Conc 31.9 g/dl (32-36); Mean Corpuscular Hemoglobin 27.5 pg (26-34); Mean Corpuscular Volume 86.2 fl (80-100); Mean Platelet Volume 10.4 fl (7.4-10.4); Platelet Count Result 288 k/mm3 (150-375); Red Blood Count 4.58 M/mm3 (4.2-5.4); Red Cell Distribution Width 13.5 % (11.5-14.5); White Blood Count 9.1 K/mm3 (4.5-10.0)
[2025-02-11 14:18] LABS: Alanine Aminotransferase 25 U/L (6-35); Albumin Level 4.5 g/dL (3.5-5.1); Alkaline Phosphatase 182 U/L (38-126); Anion Gap 8 mmol/L (4-12); Aspartate Amino Transferase 29 U/L (14-36); Bilirubin,Total 0.3 mg/dL (0.2-1.3); Blood Urea Nitrogen 12 mg/dL (7-17); Calcium 9.6 mg/dL (8.4-10.2); Carbon Dioxide 26 mmol/L (22-30); Chloride 105 mmol/L (98-107); Estimated Glomerular Filt Rate > 60; Glucose 79 mg/dL (65-110); Potassium 3.9 mmol/L (3.4-5.0); Sodium 139 mmol/L (137-145)
[2025-02-11 14:54] LABS: Carcinoembryonic Antigen 0.9 ng/mL (0.0-3.0)
[2025-02-11 15:01] LABS: Iron 62 ug/dL (37-170); Percent Iron Saturation 17 % (20-50)
== END 2025-02-11 11:37 | disposition home or self-care (01) ==
PROVIDERS: PCP Nurse Practitioner Family; Visit Provider Internal Medicine Hematology & Oncology
DX: D64.9 Anemia, unspecified (principal); C18.9 Malignant neoplasm of colon, unspecified
CPT/HCPCS: 36415; 80053; 82378; 82607; 82728; 83540; 83550; 85027; 99212; G0463

== ENCOUNTER 2025-04-17 14:02 | Outpatient (CLI) | payer MEDICARE, SELFPAY ==
--- NOTE | ~2025-04-17 | MM_ITS ---
EXAMINATION: MM screening georgi BI w ivy HISTORY: Screening TECHNIQUE: Craniocaudal and mediolateral oblique 3-D tomosynthesis images were obtained and synthetic 2-D images were generated. CAD analysis was submitted and interpreted. COMPARISON: 12/07/2022 BREAST PARENCHYMAL COMPOSITION: Not dense: There are scattered areas of fibroglandular density. FINDINGS: There is no evidence of suspicious mass, calcification, or architectural distortion to sugg est malignancy in either breast. There has been no suspicious interval change. IMPRESSION: 1. No mammographic evidence of malignancy. 2. Recommend routine screening mammography in one year. BI-RADS Category 1: Negative Reviewed, dictated and finalized at location B.
--- NOTE | ~2025-04-17 | DEXA_ITS ---
Bone Density Report Name: TWAN BRUNO Age: 64 Sex: Female Ethnicity: White Date of : 1960 Indication: postmenopausal; screening for osteoporosis; Referring Provider: CRIS BERMAN Study: Bone densitometry was performed. Exam Date: April 17, 2025 Accession number: [id number] Bone Density: Region BMD T-score Z-score Classification AP Spine(L1-L4) 0.979 -0.6 1.2 Normal Femoral Neck (Left) 0.636 -1.9 -0.3 Osteopenia Total Hip (Left) 0.911 -0.3 1.0 Normal Femoral Neck (Right) 0.601 -2.2 -0.6 Osteopenia Total Hip (Right) 0.875 -0.6 0.7 Normal Femoral Neck Mean 0.619 -2.1 -0.5 Osteopenia Total Hip Mean 0.893 -0.4 0.9 Normal World Health Organization criteria for BMD impression classify patients as: Normal (T-score at or above -1.0), Osteopenia (T-score between -1.0 and -2.5), or Osteoporosis (T-score at or below -2.5). 10-year Fracture Risk(1): Major Osteoporotic Fracture 11% Hip Fracture 1.7% Reported Risk Factors: [place] (), Neck BMD=0.601, BMI=35.8 (1) FRAX(R) Version 3.08. Fracture probability calculated for an untreated patient. Fracture probability may be lower if the patient has received treatment. Clinical Information Provided by Patient: Has used the following medications: Vitamin D Patient maximum height was 62 Menopause Age: 46 No regular weight bearing exercise Drinks caffeinated beverages Onset of menses at age 11 Number of children 4 Impression: The patient has low bone mass, based on the Right Femoral Neck T-score. Discussion: BONE DENSITY IS LOW AT ONE OR MORE SKELETAL SITES. This patient's lowest T-score is low at one or more skeletal sites. It meets the World Health Organization's (WHO) criteria for ?low bone mass? (T-score between -1.0 and -2.5). The patient's 10-year risk of fracture as calculated by FRAX is less than the threshold where pharmacological therapy is recommended by the National Osteoporosis Foundation (NOF). However, all treatment decisions require clinical judgment and consideration of individual patient factors, including patient preferences, comorbidities, previous drug use, risk factors not captured in the FRAX model (e.g., frailty, falls, vitamin D deficiency, increased bone turnover, interval significant decline in bone density) and possible under or overestimation of fracture risk by FRAX. The patient should follow a healthful lifestyle (good nutrition with adequate calcium and vitamin D, and appropriate weight-bearing exercise). Follow-Up: Consider repeating this study in 2 to 3 years to reassess this patient's status, or sooner if there is some new clinical indication. Reported by: ELVIA on 04/17/2025 2:32:00 PM. Reviewed, dictated and finalized at location A.
--- OUTSIDE RECORDS SUMMARY | 2025-04-17 14:18 | XMS_ITS | Clinical Summary ---
Author Organization [facility] Kendal weiss [place] Address [address] [place] [address] Care Team Providers Care Tab Card Press Operator Name Role Phone Unavailable Primary Care Provider Unavailabl e Allergies No known active allergies Medications atorvastatin (LIPITOR) 40 mg tablet Take 1 Tablet by mouth daily. 11/27/2024 Active primidone (MYSOLINE) 50 mg tablet Take 0.5 Tablets by mouth 2 times daily. 11/26/2024 Active Active Problems No known active problems Encounters Date Type Department Care Team Description 04/16/2025 External Device Data STL ABSTRACTION Provider, Abstract 04/15/2025 External Device Data STL ABSTRACTION Provider, Abstract 02/26/2025 4:30 PM CDT Telephone Check Up [facility] Oncology and Hematology [facility] [address] [place] [address] Jens Turner MD Chronic anemia (Primary Dx); Malignant neoplasm of colon, unspecified part of colon (CMS/HCC) 02/20/2025 External Device Data STL ABSTRACTION Provider, Abstract 02/19/2025 External Device Data STL ABSTRACTION Provider, Abstract 02/19/2025 External Device Data STL ABSTRACTION Provider, Abstract 02/18/2025 External Device Data STL ABSTRACTION Provider, Abstract 02/13/2025 Orders Only [facility] Oncology and Hematology [facility] [address] [place] [address] Jens Turner MD 02/11/2025 10:30 AM CDT Office Visit [facility] On[facility] and [facility] [address] [place] [address] Jens Turner MD Chronic anemia (Primary [...] 10:44 AM CDT Height 157.5 cm (5' 2) 02/11/2025 10:44 AM CDT Body Mass Index 34.28 02/11/2025 10:44 AM CDT Plan of Treatment Upcoming Encounters Date Type Department Care Team (Late st Contact Info) Description 07/03/2025 1:15 PM CDT Office Visit [facility] Oncology and Hematology - [place] [address] [facility] [address] [place] [address] Jens Turner MD [address] [facility] [address] [place] [address] Health Maintenance Due Date Last Done Comments Pre-Diabetes and Diabetes Screening 1960 BREAST CANCER SCREENING 1998 PNEUMOCOCCAL VACCINE 50+ YEA RS (1 of 1 - PCV) 2008 ZOSTER VACCINE (1 of 2) 2008 OSTEOPOROSIS SCREENING 2023 INFLUENZA VACCINE (#1) 2025 3, 07/27/2022, 07/23/2021 DTAP/TDAP/TD VACCINES (2 - T d or Tdap) 09/13/2026 09/13/2016 RSV VACCINE (60+ or ) (1 - 1-dose 75+ series) 2033 Procedures Procedure Name Priority Date/Time Associated Diagnosis Comments COMPREHENSIVE METABOLIC PANEL Routine 02/11/2025 10:23 AM CDT from Last 3 Months Results * COMPREHENSIVE METABOLIC PANEL (02/11/2025 10:23 AM CDT) Blood us Jens Turner MD CHEMISTRY ORDERABLES Final Resu lt from Last 3 Months Insurance [employer] [facility]
--- OUTSIDE RECORDS SUMMARY | 2025-04-17 14:18 | XMS_ITS | Encounter Summary ---
Author Organization [facility] Address [address] [place] [address] Care Team Providers Care Sales And Support Center Agent Name Role Phone Unavailable Primary Care Provider Unavailabl e Encounter Details Date Type Department Care Team (Late st Contact Info) Description 04/15/2025 External Device Data ST[facility] ABSTRACTION Provider, Abstract NO ADDRESS ON FILE Social History Tobacco Use Types Packs/Day Years [...] on file documented as of this encounter Plan of Treatment Upcoming Encounters Date Type Department Care Team (Late st Contact Info) Description 07/03/2025 1:15 PM CDT Office Visit [facility] Oncology and Hematology - [place] [address] [facility] [address] [place] [address] Jens Turner MD [address] [facility] [address] [place] [address] documented as of this encounter Visit Diagnoses Not on filedocumented in this encounter
--- OUTSIDE RECORDS SUMMARY | 2025-04-17 14:18 | XMS_ITS | Data Portability ---
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 Plan of Treatment Reminders Order Date Submit Date Provider Last Modified By Organization Details Last Modified Time Details Appointments None recorded. Lab TSH, serum, reflex free T4 [address] Out[facility], [address] [place], [address], 3 08:54:22 drug screen, urine [address] [facility] Out[facility] Lab, [address] [place], [address], 3 14:06:22 lipid panel, serum [address] [facility] Out[facility], [address] [place], [address], 3 20:13:41 CMP, serum or plasma [address] [facility] Lab, [address] [place], [address], 3 20:13:46 HbA1c (hemoglobin A1c), blood [address] Out[facility] Lab, [address] [place], [address], 10:09:06 CBC w/ auto diff 2022 [facility] - Outpatient Lab, [address], [place], [address], 20:08:56 Referral neurologist referral - eval and treat for tremor. Was a Naseer patient on primadone 2022 hrushing6 [facility] - Neurology, [address], [facility] [place], [address], 11:26:37 Procedures None recorded. Surgeries None recorded. Imaging None recorded. Medication Orders lisinopril 20 mg tablet 2022 023 [facility] [address], [address] [facility] [address], [place], [address], 14:38:13 Patient TargetsNo targets recorded. Patient Instructions Encounter Date Encounter Id Patient Instructions Last Modified By Organization Details Last Modified Time 02/07/2023 [id number] FU in 4 mo, sooner as needed. Lipid, depression/anxiet y, tremor Not available 02/07/2023 10:37:45 07/27/2023 [id number] FU in 6 mo for weight,, htn, [...] 2016, 39([place] ppl.1 ):s13 -s22 Not Available [facility] (Lab) [address] [place], [address], 03/24/2022 20:14:42 03/23/20 22 03/24/2022 FOLAT E, SERUM /PLAS MA folate 13.8 NG/mL 2.76-2 0.0 Not Available [facility] (Lab) [address] [place], [address], 03/24/2022 16:34:02 03/23/20 22 03/24/2022 VITAM IN B12 (PETRA RIYA ) vb12 561 pg/mL 239-93 1 Not Available [facility] (Lab) [address] [place], [address], 03/24/2022 16:33:57 03/23/20 22 03/24/2022 TSH W/REF ANDREI FT4 TSH with reflex free T4 0.762 uIU/m L 0.465- 4.680 Not Available [facility] (Lab) [address] [place], [address], 03/24/2022 16:11:40 03/23/20 22 03/24/2022 VITAM IN D 25-HY DROXY vd25oh 34.9 NG/mL 30-100 Vitam in D Statu s: Defic ient: <20 ng/mL Insuf ficie nt: 20-29 ng/mL Suffi cient : 30-10 0 ng/mL Not Available [facility] (Lab) [address] [place], [address], 03/24/2022 15:45:15 03/23/20 22 03/24/2022 CBC/C OMPLE TE BLD COUNT W/DIF F white blood cells 9.0 x10'3 /uL 4.2-10 .8 Not Available [facility] (Lab) [address] [place], [address], 03/24/2022 15:28:41 03/23/20 22 03/24/2022 CBC/C OMPLE TE BLD COUNT W/DIF F red blood cells 4.80 x10'6 /uL 3.80-5 .20 Not Available [facility] (Lab) [address] [place], [address], 03/24/2022 15:28:41 03/23/20 22 03/24/2022 CBC/C OMPLE TE BLD COUNT W/DIF F hemoglobin 13.7 g/dL 12.0-1 5.6 Not Available [facility] (Lab) [address] [place], [address], 03/24/2022 15:28:41 03/23/20 22 03/24/2022 CBC/C OMPLE TE BLD COUNT W/DIF F hematocrit 42.3 % 35.7-4 5.7 Not Available [facility] (Lab) [address] [place], [address], 03/24/2022 15:28:41 03/23/20 22 03/24/2022 CBC/C OMPLE TE BLD COUNT W/DIF F mean red cell volume 88.1 fL 82.0-9 9.0 Not Available [facility] (Lab) [address] [place], [address], 03/24/2022 15:28:41 03/23/20 22 03/24/2022 CBC/C OMPLE TE BLD COUNT W/DIF F mean red cell hemoglobin 28.5 pg 27.0-3 3.0 Not Available [facility] (Lab) [address] [place], [address], 03/24/2022 15:28:41 03/23/20 22 03/24/2022 CBC/C OMPLE TE BLD COUNT W/DIF F mean RBC HGB concentratio n 32.4 g/dL 31.0-3 6.0 Not Available [facility] (Lab) [address] [place], [address], 03/24/2022 15:28:41 03/23/20 22 03/24/2022 CBC/C OMPLE TE BLD COUNT W/DIF F red cell distribution width 13.3 % 11.8-1 5.5 Not Available [facility] (Lab) [address] [place], [address], 03/24/2022 15:28:41 03/23/20 22 03/24/2022 CBC/C OMPLE TE BLD COUNT W/DIF F platelets 239 x10'3 /uL 150-40 0 Not Available [facility] (Lab) [address] [place], [address], 03/24/2022 15:28:41 03/23/20 22 03/24/2022 CBC/C OMPLE TE BLD COUNT W/DIF F mean platelet volume 11.7 fL 9.0-12 .4 Not Available [facility] (Lab) [address] [place], [address], 03/24/2022 15:28:41 03/23/20 22 03/24/2022 CBC/C OMPLE TE BLD COUNT W/DIF F neutrophils 56.2 % 39.0-7 2.0 Not Available [facility] (Lab) [address] [place], [address], 03/24/2022 15:28:41 03/23/20 22 03/24/2022 CBC/C OMPLE TE BLD COUNT W/DIF F lymphocytes 30.5 % 16.0-4 7.0 Not Available [facility] (Lab) [address] [facility] [place] [place], [address], 03/24/2022 15:28:41 03/23/20 22 03/24/2022 CBC/C OMPLE TE BLD COUNT W/DIF F monocytes 8.8 % 5.0-12 .0 Not Available [facility] (Lab) [address] [place], [address], 03/24/2022 15:28:41 03/23/20 22 03/24/2022 CBC/C OMPLE TE BLD COUNT W/DIF F eosinophils 3.2 % 1.0-7. 0 Not Available [facility] (Lab) [address] [place], [address], 03/24/2022 15:28:41 03/23/20 22 03/24/2022 CBC/C OMPLE TE BLD COUNT W/DIF F basophils 0.6 % 0.0-2. 0 Not Available [facility] (Lab) [address] [facility] [place] [place], [address], 03/24/2022 15:28:41 03/23/2003/24/2022 CBC/C OMPLE TE BLD COUNT W/DIF F immature granulocytes 0.7 % 0.00-0 .50 high Not Available [facility] (Lab) [address] [place], [address], 03/24/2022 15:28:41 03/23/20 22 03/24/2022 CBC/C OMPLE TE BLD COUNT W/DIF F neutrophils, absolute count 5.08 x10'3 /uL 1.5-8. 0 Not Available [facility] (Lab) [address] [place], [address], 03/24/2022 15:28:41 03/23/20 22 03/24/2022 CBC/C OMPLE TE BLD COUNT W/DIF F lymphocytes, absolute count 2.76 x10'3 /uL 1.07-3 .43 Not Available [facility] (Lab) [address] [place], [address], 03/24/2022 15:28:41 03/23/20 22 03/24/2022 CBC/C OMPLE TE BLD COUNT W/DIF F monocytes, absolute count 0.80 x10'3 /uL 0.29-0 .99 Not Available [facility] (Lab) [address] [place], [address], 03/24/2022 15:28:41 03/23/20 22 03/24/2022 CBC/C OMPLE TE BLD COUNT W/DIF F eosinophils, absolute count 0.29 x10'3 /uL 0.02-0 .53 Not Available [facility] (Lab) [address] [place], [address], 03/24/2022 15:28:41 03/23/20 22 03/24/2022 CBC/C OMPLE TE BLD COUNT W/DIF F basophils, absolute count 0.05 x10'3 /uL 0.01-0 .08 Not Available [facility] (Lab) [address] [place], [address], 03/24/2022 15:28:41 03/23/20 22 03/24/2022 CBC/C OMPLE TE BLD COUNT W/DIF F immature granulocytes ,absolute 0.06 x10'3 /uL 0.00-0 .05 high Not Available [facility] (Lab) [address] [place], [address], 03/24/2022 15:28:41 03/23/20 22 03/24/2022 CBC/C OMPLE TE BLD COUNT W/DIF F nucleated red blood cells 0.0 % -0 Not Available [facility] (Lab) [address] [place], [address], 03/24/2022 15:28:41 03/23/2003/24/2022 CBC/C OMPLE TE BLD COUNT W/DIF F NRBC# 0.00 x10'3 /uL Not Available [facility] (Lab) [address] [place], [address], 03/24/2022 15:28:41 03/23/20 22 03/24/2022 COMPR EHENS VIRIDIANA METAB OLIC PANEL sodium 135 mmol/ L 137-14 5 low Not Available [facility] (Lab) [address] [place], [address], 03/24/2022 15:22:13 03/23/20 22 03/24/2022 COMPR EHENS VIRIDIANA METAB OLIC PANEL potassium 4.1 mmol/ L 3.5-5. 1 Not Available [facility] (Lab) [address] [place], [address], 03/24/2022 15:22:13 03/23/20 22 03/24/2022 COMPR EHENS VIRIDIANA METAB OLIC PANEL chloride 103 mmol/ L 98-107 Not Available [facility] (Lab) [address] [place], [address], 03/24/2022 15:22:13 03/23/20 22 03/24/2022 COMPR EHENS VIRIDIANA METAB OLIC PANEL carbon dioxide 25 mmol/ L 22-30 Not Available [facility] (Lab) [address] [place], [address], 03/24/2022 15:22:13 03/23/20 22 03/24/2022 COMPR EHENS VIRIDIANA METAB OLIC PANEL anion gap 11.1 mmol/ L 14-22 low Not Available [facility] (Lab) [address] [place], [address], 03/24/2022 15:22:13 03/23/20 22 03/24/2022 COMPR EHENS VIRIDIANA METAB OLIC PANEL glucose 80 mg/dL 70-99 Not Available [facility] (Lab) [address] [place], [address], 03/24/2022 15:22:13 03/23/20 22 03/24/2022 COMPR EHENS VIRIDIANA METAB OLIC PANEL BUN 14 mg/dL 8-19 Not Available [facility] (Lab) [address] [place], [address], 03/24/2022 15:22:13 03/23/20 22 03/24/2022 COMPR EHENS VIRIDIANA METAB OLIC PANEL creatinine 0.71 mg/dL 0.66-1 .25 Not Available [facility] (Lab) [address] [place], [address], 03/24/2022 15:22:13 03/23/20 22 03/24/2022 COMPR EHENS VIRIDIANA METAB OLIC PANEL GFR >60 Refer ence Range : [place] GFR Healt hy Adult : >60 [...] or ethni c subgr oups, such as Hisnc nics. Outsi de the valid ated cece [...] on the F websi te: [email or web address] :[email or web address] rg/pr ofess ional s/kdo qi/gf r_cal culat or Not Available [facility] (Lab) [address] [place], [address], 03/24/2022 15:22:13 03/23/20 22 03/24/2022 COMPR EHENS VIRIDIANA METAB OLIC PANEL alkaline phosphatase 134 U/L 38-126 high Not Available [facility] (Lab) [address] [facility] [place] [place], [address], 03/24/2022 15:22:13 03/23/20 22 03/24/2022 COMPR EHENS VIRIDIANA METAB OLIC PANEL alanine aminotransfe rase 20 U/L 0-35 Not Available [facility] (Lab) [address] [place], [address], 03/24/2022 15:22:13 03/23/20 22 03/24/2022 COMPR EHENS VIRIDIANA METAB OLIC PANEL aspartate aminotransfe rase 28 U/L 15-37 Not Available [facility] (Lab) [address] [place], [address], 03/24/2022 15:22:13 03/23/20 22 03/24/2022 COMPR EHENS VIRIDIANA METAB OLIC PANEL bilirubin, total 0.50 mg/dL 0.20-1 .30 Not Available [facility] (Lab) [address] [place], [address], 03/24/2022 15:22:13 03/23/20 22 03/24/2022 COMPR EHENS VIRIDIANA METAB OLIC PANEL calcium 10.0 mg/dL 8.4-10 .2 Not Available [facility] (Lab) [address] [place], [address], 03/24/2022 15:22:13 03/23/20 22 03/24/2022 COMPR EHENS VIRIDIANA METAB OLIC PANEL total protein 7.7 g/dL 6.3-8. 2 Not Available [facility] (Lab) [address] [place], [address], 03/24/2022 15:22:13 03/23/20 22 03/24/2022 COMPR EHENS VIRIDIANA METAB OLIC PANEL albumin 4.7 g/dL 3.0-4. 4 high Not Available [facility] (Lab) [address] [place], [address], 03/24/2022 15:22:13 03/23/20 22 03/24/2022 COMPR EHENS VIRIDIANA METAB OLIC PANEL globulin 3.0 g/dL 2.6-4. 2 Not Available [facility] (Lab) [address] [place], [address], 03/24/2022 15:22:13 03/23/20 22 03/24/2022 COMPR EHENS VIRIDIANA METAB OLIC PANEL A/G ratio 1.6 ratio 1.0-2. 0 Not Available [facility] (Lab) [address] [place], [address], 03/24/2022 15:22:13 03/23/20 22 03/24/2022 LIPID PANEL cholesterol 242 mg/dL 140-19 9 high NIH JOSE NSUS RECOM MENDA TION FOR CANDY STERO L: ADULT CHILD LOW RISK: <200 <170 BORDE RLINE : <200- 239 ----- HIGH RISK: >240 >200 Not Available [facility] (Lab) [address] [place], [address], 03/24/2022 15:22:03 03/23/2003/24/2022 LIPID PANEL triglyceride s 220 mg/dL 0-150 high NIH JOSE NSUS REPOR T RECOM MENDA TION FOR TRIGL YCERI JOSE: ADULT CHILD LOW RISK: <150 ----- BODER LINE: 150-1 99 ----- HIGH RISK: >200 ----- Not Available [facility] (Lab) [address] [place], [address], 03/24/2022 15:22:03 03/23/2003/24/2022 LIPID PANEL HDL cholesterol 52 mg/dL 40- Not Available [facility] (Lab) [address] [place], [address], 03/24/2022 15:22:03 03/23/20 22 03/24/2022 LIPID PANEL [...] WILL NOT BE REPOR LAZARA. Not Available [facility] (Lab) [address] [place], [address], 03/24/2022 15:22:03 02/08/2002/07/2023 CBC/C OMPLE TE BLD COUNT W/DIF F white blood cells 7.5 x10'3 /uL 4.2-10 .8 Not Available [facility] (Lab) [address] [place], [address], 02/07/2023 20:08:55 02/08/20 23 02/07/2023 CBC/C OMPLE TE BLD COUNT W/DIF F red blood cells 4.58 x10'6 /uL 3.80-5 .20 Not Available [facility] (Lab) [address] [place], [address], 02/07/2023 20:08:55 02/08/20 23 02/07/2023 CBC/C OMPLE TE BLD COUNT W/DIF F hemoglobin 13.1 g/dL 12.0-1 5.6 Not Available [facility] (Lab) [address] [place], [address], 02/07/2023 20:08:55 02/08/20 23 02/07/2023 CBC/C OMPLE TE BLD COUNT W/DIF F hematocrit 40.6 % 35.7-4 5.7 Not Available [facility] (Lab) [address] [place], [address], 02/07/2023 20:08:55 02/08/20 23 02/07/2023 CBC/C OMPLE TE BLD COUNT W/DIF F mean red cell volume 88.6 fL 82.0-9 9.0 Not Available [facility] (Lab) [address] [place], [address], 02/07/2023 20:08:55 02/08/20 23 02/07/2023 CBC/C OMPLE TE BLD COUNT W/DIF F mean red cell hemoglobin 28.6 pg 27.0-3 3.0 Not Available [facility] (Lab) [address] [place], [address], 02/07/2023 20:08:55 02/08/20 23 02/07/2023 CBC/C OMPLE TE BLD COUNT W/DIF F mean RBC HGB concentratio n 32.3 g/dL 31.0-3 6.0 Not Available [facility] (Lab) [address] [place], [address], 02/07/2023 20:08:55 02/08/20 23 02/07/2023 CBC/C OMPLE TE BLD COUNT W/DIF F red cell distribution width 13.3 % 11.8-1 5.5 Not Available [facility] (Lab) [address] [place], [address], 02/07/2023 20:08:55 02/08/20 23 02/07/2023 CBC/C OMPLE TE BLD COUNT W/DIF F platelets 243 x10'3 /uL 150-40 0 Not Available [facility] (Lab) [address] [place], [address], 02/07/2023 20:08:55 02/08/20 23 02/07/2023 CBC/C OMPLE TE BLD COUNT W/DIF F mean platelet volume 11.6 fL 9.0-12 .4 Not Available [facility] (Lab) [address] [place], [address], 02/07/2023 20:08:55 02/08/20 23 02/07/2023 CBC/C OMPLE TE BLD COUNT W/DIF F neutrophils 56.4 % 39.0-7 2.0 Not Available [facility] (Lab) [address] [place], [address], 02/07/2023 20:08:55 02/08/20 23 02/07/2023 CBC/C OMPLE TE BLD COUNT W/DIF F lymphocytes 33.1 % 16.0-4 7.0 Not Available [facility] (Lab) [address] [place], [address], 02/07/2023 20:08:55 02/08/20 23 02/07/2023 CBC/C OMPLE TE BLD COUNT W/DIF F monocytes 7.7 % 5.0-12 .0 Not Available [facility] (Lab) [address] [place], [address], 02/07/2023 20:08:55 02/08/20 23 02/07/2023 CBC/C OMPLE TE BLD COUNT W/DIF F eosinophils 2.0 % 1.0-7. 0 Not Available [facility] (Lab) [address] [place], [address], 02/07/2023 20:08:55 02/08/20 23 02/07/2023 CBC/C OMPLE TE BLD COUNT W/DIF F basophils 0.5 % 0.0-2. 0 Not Available [facility] (Lab) [address] [place], [address], 02/07/2023 20:08:55 02/08/20 23 02/07/2023 CBC/C OMPLE TE BLD COUNT W/DIF F immature granulocytes 0.3 % 0.00-0 .50 Not Available [facility] (Lab) [address] [place], [address], 02/07/2023 20:08:55 02/08/20 23 02/07/2023 CBC/C OMPLE TE BLD COUNT W/DIF F neutrophils, absolute count 4.24 x10'3 /uL 1.5-8. 0 Not Available [facility] (Lab) [address] [place], [address], 02/07/2023 20:08:55 02/08/20 23 02/07/2023 CBC/C OMPLE TE BLD COUNT W/DIF F lymphocytes, absolute count 2.49 x10'3 /uL 1.07-3 .43 Not Available [facility] (Lab) [address] [place], [address], 02/07/2023 20:08:55 02/08/20 23 02/07/2023 CBC/C OMPLE TE BLD COUNT W/DIF F monocytes, absolute count 0.58 x10'3 /uL 0.29-0 .99 Not Available [facility] (Lab) [address] [place], [address], 02/07/2023 20:08:55 02/08/20 23 02/07/2023 CBC/C OMPLE TE BLD COUNT W/DIF F eosinophils, absolute count 0.15 x10'3 /uL 0.02-0 .53 Not Available [facility] (Lab) [address] [place], [address], 02/07/2023 20:08:55 02/08/20 23 02/07/2023 CBC/C OMPLE TE BLD COUNT W/DIF F basophils, absolute count 0.04 x10'3 /uL 0.01-0 .08 Not Available [facility] (Lab) [address] [place], [address], 02/07/2023 20:08:55 02/08/20 23 02/07/2023 CBC/C OMPLE TE BLD COUNT W/DIF F immature granulocytes ,absolute 0.02 x10'3 /uL 0.00-0 .05 Not Available [facility] (Lab) [address] [place], [address], 02/07/2023 20:08:55 02/08/20 23 02/07/2023 CBC/C OMPLE TE BLD COUNT W/DIF F nucleated red blood cells 0.0 % -0 Not Available [facility] (Lab) [address] [place], [address], 02/07/2023 20:08:55 02/08/20 23 02/07/2023 CBC/C OMPLE TE BLD COUNT W/DIF F NRBC# 0.00 x10'3 /uL Not Available [facility] (Lab) [address] [place], [address], 02/07/2023 20:08:55 02/08/20 23 02/07/2023 LIPID PANEL cholesterol 165 mg/dL 140-19 9 NIH JOSE NSUS RECOM MENDA TION FOR CANDY STERO L: ADULT CHILD LOW RISK: <200 <170 BORDE RLINE : <200- 239 ----- HIGH RISK: >240 >200 Not Available [facility] (Lab) [address] [place], [address], 02/07/2023 20:13:41 02/08/2002/07/2023 LIPID PANEL triglyceride s 163 mg/dL 0-150 high NIH JOSE NSUS REPOR T RECOM MENDA TION FOR TRIGL YCERI JOSE: ADULT CHILD LOW RISK: <150 ----- BODER LINE: 150-1 99 ----- HIGH RISK: >200 ----- Not Available [facility] (Lab) [address] [place], [address], 02/07/2023 20:13:41 02/08/20 23 02/07/2023 LIPID PANEL HDL cholesterol 45 mg/dL 40- Not Available [facility] (Lab) [address] [place], [address], 02/07/2023 20:13:41 02/08/20 23 02/07/2023 LIPID PANEL [...] WILL NOT BE REPOR LAZARA. Not Available [facility] (Lab) [address] [place], [address], 02/07/2023 20:13:41 02/08/20 23 02/07/2023 COMPR EHENS VIRIDIANA METAB OLIC PANEL sodium 138 mmol/ L 137-14 5 Not Available [facility] (Lab) [address] [place], [address], 02/07/2023 20:13:46 02/08/20 23 02/07/2023 COMPR EHENS VIRIDIANA METAB OLIC PANEL potassium 4.3 mmol/ L 3.5-5. 1 Not Available [facility] (Lab) [address] [place], [address], 02/07/2023 20:13:46 02/08/20 23 02/07/2023 COMPR EHENS VIRIDIANA METAB OLIC PANEL chloride 104 mmol/ L 98-107 Not Available [facility] (Lab) [address] [place], [address], 02/07/2023 20:13:46 02/08/20 23 02/07/2023 COMPR EHENS VIRIDIANA METAB OLIC PANEL carbon dioxide 25 mmol/ L 22-30 Not Available [facility] (Lab) [address] [place], [address], 02/07/2023 20:13:46 02/08/20 23 02/07/2023 COMPR EHENS VIRIDIANA METAB OLIC PANEL anion gap 13.3 mmol/ L 14-22 low Not Available [facility] (Lab) [address] [place], [address], 02/07/2023 20:13:46 02/08/20 23 02/07/2023 COMPR EHENS VIRIDIANA METAB OLIC PANEL glucose 94 mg/dL 70-99 Not Available [facility] (Lab) [address] [place], [address], 02/07/2023 20:13:46 02/08/20 23 02/07/2023 COMPR EHENS VIRIDIANA METAB OLIC PANEL BUN 15 mg/dL 8-19 Not Available [facility] (Lab) [address] [place], [address], 02/07/2023 20:13:46 02/08/20 23 02/07/2023 COMPR EHENS VIRIDIANA METAB OLIC PANEL creatinine 0.72 mg/dL 0.66-1 .25 Not Available [facility] (Lab) [address] [place], [address], 02/07/2023 20:13:46 02/08/20 23 02/07/2023 COMPR EHENS VIRIDIANA METAB OLIC PANEL GFR >60 Refer ence Range : [place] GFR Healt hy Adult : >60 [...] calcu lator is avail able on the [facility] websi te: https :[email or web address] rg/pr ofess ional s/kdo qi/gf r_cal culat or Not Available [facility] (Lab) [address] [place], [address], 02/07/2023 20:13:46 02/08/20 23 02/07/2023 COMPR EHENS VIRIDIANA METAB OLIC PANEL alkaline phosphatase 126 U/L 38-126 Not Available [facility] (Lab) [address] [place], [address], 02/07/2023 20:13:46 02/08/20 23 02/07/2023 COMPR EHENS VIRIDIANA METAB OLIC PANEL alanine aminotransfe rase 24 U/L 0-35 Not Available [facility] (Lab) [address] [place], [address], 02/07/2023 20:13:46 02/08/20 23 02/07/2023 COMPR EHENS VIRIDIANA METAB OLIC PANEL aspartate aminotransfe rase 26 U/L 15-37 Not Available [facility] (Lab) [address] [place], [address], 02/07/2023 20:13:46 02/08/20 23 02/07/2023 COMPR EHENS VIRIDIANA METAB OLIC PANEL bilirubin, total 0.40 mg/dL 0.20-1 .30 Not Available [facility] (Lab) [address] [place], [address], 02/07/2023 20:13:46 02/08/20 23 02/07/2023 COMPR EHENS VIRIDIANA METAB OLIC PANEL calcium 9.9 mg/dL 8.4-10 .2 Not Available [facility] (Lab) [address] [place], [address], 02/07/2023 20:13:46 02/08/20 23 02/07/2023 COMPR EHENS VIRIDIANA METAB OLIC PANEL total protein 7.2 g/dL 6.3-8. 2 Not Available [facility] (Lab) [address] [place], [address], 02/07/2023 20:13:46 02/08/20 23 02/07/2023 COMPR EHENS VIRIDIANA METAB OLIC PANEL albumin 4.5 g/dL 3.0-4. 4 high Not Available [facility] (Lab) [address] [place], [address], 02/07/2023 20:13:46 02/08/20 23 02/07/2023 COMPR EHENS VIRIDIANA METAB OLIC PANEL globulin 2.7 g/dL 2.6-4. 2 Not Available [facility] (Lab) [address] [place], [address], 02/07/2023 20:13:46 02/08/20 23 02/07/2023 COMPR EHENS VIRIDIANA METAB OLIC PANEL A/G ratio 1.7 ratio 1.0-2. 0 Not Available [facility] (Lab) [address] [place], [address], 02/07/2023 20:13:46 02/08/20 23 02/07/2023 TSH W/REF ANDREI FT4 TSH with reflex free T4 2.050 uIU/m L 0.465- 4.680 Not Available [facility] (Lab) [address] [place], [address], 02/07/2023 20:29:53 02/08/20 23 02/07/2023 HEMOG LOBIN A1C HA1C 5.6 % 4.0-6. 0 Diabe tori Veena villanueva Crite risa: <5.7% Consi stent with absen ce of diabe tori 5.7-6 .4% Consi stent with incre ased risk for diabe tori (pred iabet es) >OR=6 .5% Consi stent with diabe tori REFER ENCE: Diabe tori Care 2016, 39([place] ppl.1 ):s13 -s22 Not Available [facility] ([facility]) [address], [place], [address], 02/07/2023 21:28:40 12/08/19 23 12/07/2022 MAMMO , veena villanueva, digit al, bilat eral No observ ation record ed. [facility] [address], [place], [address], 12/12/2022 16:39:42 Result Notes None recorded. Problems Name Problem SNOMED Code Status Onset Date Resolution Date Notes Provider Name and Address Organization Details Recorded Time Hypercholester olemia 89230168 Active 2020 Not Available [facility] 3 23:30:25 Tremor 80935270 Active 2020 Not Available [facility] 3 23:30:25 Depressive disorder 91839972 Active 2020 Not Available [facility] 3 23:30:25 Anxiety 23365684 Active 2020 Not Available [facility] 3 23:30:25 Hyperlipidemia 59205698 Active 2020 Not Available [facility] 3 23:30:25 Essential hypertension 81335947 Active 2022 Cristel Ball NP [address], [facility] [address], [place], [address] , [facility] 3 14:37:25 Notes:squamous cell skin can cer back 10/2021 Problem Notes None recorded. Procedures Surgical History Date Name Laterality Status Provider Name and Address Organization Details Recorded Time 3 Most Recent Mammogram completed WILLIE Blue [facility] [employer] 02/07/2023 10:02:21 1 Date of Last Pap Smear completed Not Available [facility] 11/30/2022 23:28:57 Imaging Results None recorded. Procedure Notes None recorded. Medical Equipment None [...] Available Not Available Vitals Date Recorded Body height Body mass index (BMI) Body weight Body temperature Heart rate Heart rate Respiratory rate Oxygen saturation Oxygen saturation in Arterial blood by Pulse oximetry Systolic And Diastolic Provider Name and Address Organization Details Last Updated DateTime 3 157.48 cm 36.6 kg/m2 27839.4 7 g 96.9 [degF] 67 /min 67 /min 16 /min 97 % 97 % 158/86 mm[Hg] WILLIE Blue [facility] [employer] 3 10:00:33 Date Recorded Body mass index (BMI) Body height Oxygen saturation Oxygen saturation in Arterial blood by Pulse oximetry Heart rate Body temperature Body weight Systolic And Diastolic Provider Name and Address Organization Details Last Updated DateTime 2 36.8 kg/m2 157.48 cm 99 % 99 % 64 /min 97.5 [degF] 67125.0 7 g 126/76 mm[Hg] Not Available [facility] 3 23:30:02 Date Recorded Body mass index (BMI) Body height Oxygen saturation Oxygen saturation in Arterial blood by Pulse oximetry Heart rate Body temperature Body weight Systolic And Diastolic Provider Name and Address Organization Details Last Updated DateTime 2 35.4 kg/m2 157.48 cm 98 % 98 % 76 /min 98.2 [degF] 03309.4 3 g 122/80 mm[Hg] Not Available [facility] 3 23:30:02 Date Recorded Body height Body mass index (BMI) Body weight Body temperature Heart rate Respiratory rate Oxygen saturation Oxygen saturation in Arterial blood by Pulse oximetry Systolic And Diastolic Provider Name and Address Organization Details Last Updated DateTime 3 157.48 cm 36.3 kg/m2 74694.0 9 g 97 [degF] 62 /min 16 /min 98 % 98 % 170/100 mm[Hg] Cristel Gonzalez RN [place] [employer] [facility] 3 14:10:08 Social History Question Answer Notes LastModified by Organizat ion Details LastModified Time Tobacco Smoking Status Never Smoker Not Available [facility] 11/30/2022 23:28:34 Do You Have An Advance Directive? Yes Information not available 02/07/2023 Do You Wear A Helmet When Biking? No MIGRATION.77138 [id number] Information not available 11/30/2022 Is Blood Transfusion Acceptable In An Emergency? Yes Information not available 02/07/2023 What Is Your Level Of Caffeine Consumption? Moderate MIGRATION.28641 [id number] Information not available 11/30/2022 What Is Your Code Status? DNR Information not available 02/07/2023 In The 14 Days Before Symptom Onset, Have You Had Close Contact With A Laboratory-confi rmed COVID-19 While That Case Was Ill? No MIGRATION.61756 [id number] Information not available 11/30/2022 In The 14 Days Before Symptom Onset, Have You Had Close Contact With A Person Who Is Under Investigation For COVID-19 While That Person Was Ill? No MIGRATION.66316 80325 Information not available 11/30/2022 What Type Of Diet Are You Following? REGULAR MIGRATION.13390 21330 Information not available 11/30/2022 Have There Been Any Changes To Your Family Or Social Situation? Yes Son Passed (2019) MIGRATION.49288 42552 Information not available 11/30/2022 Do You Use Insect Repellent Routinely? Yes MIGRATION.78434 20898 Information not available 11/30/2022 Where Do You Live? SingleLevelHouse Information not available 02/07/2023 Do You Have A Medical Power Of Hangar Attendant? Yes Information not available 02/07/2023 Have You Ever Been Counseled For Unhealthy Alcohol Use? No MIGRATION.08157 24423 Information not available 11/30/2022 Do You Have Any Pets? No MIGRATION.61511 00027 Information not available 11/30/2022 What Is Your Relationship Status? MIGRATION.93713 09784 Information not available 11/30/2022 Do You Use Your Seat Belt Or Car Seat Routinely? Yes MIGRATION.05826 93956 Information not available 11/30/2022 Do You Have Smoke And Carbon Monoxide Detectors In Your Home? Yes MIGRATION.14459 66712 Information not available 11/30/2022 Are There Any Smokers In Your House? No MIGRATION.81711 95958 Information not available 11/30/2022 Do You Participate In Social Media? Yes MIGRATION.67824 96092 Information not available 11/30/2022 Do You Use Sunscreen Routinely? Yes MIGRATION.99757 40293 Information not available 11/30/2022 Has Tobacco Cessation Counseling Been Provided? No MIGRATION.81691 67863 Information not available 11/30/2022 Have You Recently Traveled Abroad? No MIGRATION.30100 93364 Information not available 11/30/2022 Do You Have Any Dietary Restrictions? No MIGRATION.20957 81956 Information not available 11/30/2022 Sex: Unknown Functional Status Question Answer Note LastModified by Organizat ion Details LastModified Time Do you use any illicit or recreational drugs? No MIGRATION.569979 0092 Information not available 11/30/2022 Do you or have you ever used any other forms of tobacco or nicotine? No MIGRATION.508269 1299 Information not available 11/30/2022 What is your level of alcohol consumption? Occasional MIGRATION.020321 8272 Information not available 11/30/2022 Are you currently employed? 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 None Information not available 07/27/2023 Mental Status Question Answer Note LastModified by Organizat ion Details LastModified Time Do you feel stressed (tense, restless, nervous, or anxious, or unable to sleep at night)? [id number] MIGRATION.[id number] Information not available 11/30/2022 Family History Relationship Description Onset Age of this Age Resolved Age Notes LastModified by Organization Details LastModified Time Father Diabetes mellitus MIGRATION.088 [id number] Not available 11/30/2022 23:29:02 Paternal Grandmother Heart disease MIGRATION.894 [id number] Not available 11/30/2022 23:29:02 Son Attack Heart: Deceas ed MIGRATION.611 [id number] Not available 11/30/2022 23:29:02 Maternal Grandfather Attack Heart: Deceas ed MIGRATION.521 [id number] Not available 11/30/2022 23:29:02 Medical History Condition Response BLINDNESS N RHEUMATIC FEVER N BLADDER PROBLEMS N KIDNEY STONES N MRSA N OTHER # 1 N POLIO N LUNG DISEASE/DISORDER N HISTORY OF DRUG ABUSE N RADIATION / CHEMOTHERAPY N COPD N Other # 2 N BLOOD DISEASES N SURGERY N EAR OR HEARING PROBLEMS N MUMPS N SHINGLES N BOWEL PROBLEMS N DEPRESSION (INCLUDING POST ) N FEMALE PROBLEMS / INFECTIONS N STROKE/TIA N THYROID DISEASE N ULCERS [...] HAVE YOU BEEN HOSPITALIZED OR SEEN IN [facility] IN THE PAST YEAR ? N ATHEROSCLEROSIS [...] N PAIN N HERPES N DEMENTIA N SEIZURES/EPILEPSY N HEADACHES/MIGRAINES N VASCULAR DISEASE N PACEMAKER N DIZZINESS N KIDNEY DISEASE N HEART DISEASE/HEART PROBLEMS N SCARLET FEVER N MULTIPLE SCLEROSIS N MENTAL DISORDER/ILLNESS N DEVELOPMENTAL OR BEHAVIORAL DISORDERS N CARDIAC ARRHYTHMIA N CANCER: SPECIFY N PNEUMONIA N Gall Stones N ATRIAL FIBRILLATION N PULMONARY EMBOLISM N AUTOIMMUNE DISEASE N [...] virus, quadrivalent, PF 07/27/2022 completed Not Available [facility] 3 23:31:53 Influenza, split virus, quadrivalent, PF 07/23/2021 completed Not Available [facility] 3 23:31:53 Influenza, split virus, quadrivalent, PF 07/27/2023 completed Cristel Gonzalez RN [facility] 07/27/2023 14:56:23 Past Encounters Encounter ID Performer Location Encounter Start Date Encounter Closed Date Diagnosis/Indication Diagnosis SNOMED-CT Code Diagnosis ICD10 Code Diagnosis Note [id number] Praveen Aquino MD [address] [address] 05/06/2021 00:00:00 05/06/2021 18:11:54 [id number] Praveen Aquino MD [address] [address] 1 06/03/2021 00:00:00 06/03/2021 18:20:29 [id number] Praveen Aquino MD [facility] [address] 07/23/2021 00:00:00 07/23/2021 16:35:18 [id number] Praveen Aquino MD [address] [address] 1 08/13/2021 00:00:00 08/13/2021 11:53:42 [id number] Praveen Aquino MD [address] [address] 1 01/12/2022 00:00:00 01/12/2022 09:52:51 [id number] Praveen Aquino MD [address] [address] 03/23/2022 00:00:00 03/23/2022 16:42:48 [id number] Cristel Ball NP [address] [address] 04/27/2022 00:00:00 04/27/2022 14:46:30 [id number] Praveen Aquino MD [address] [address] 07/26/2022 00:00:00 07/26/2022 18:15:43 [id number] Cristel Ball NP [address] [address] 02/07/2023 09:49:02 02/07/2023 11:47:29 Depressive disorder 51149735 F32.9 sertraline 100 mg, 1.5 tab po daily. Doing better. Clonazapam prn. Hyperlipidemia 89162785 E78.5 Atorvastat in 40 mg po daily. Tremor 97480515 R25.1 Primidone 50 mg 1/2 tab po daily. Anxiety 59424454 F41.9 Stable. Sertraline 100 mg, 1.5 tab po daily. Clonazepam prn. Anemia screening 4367755 07 Z13.0 Diabetes m ellitus screening 154115989 Z13.1 Thyroid di yumiko screening 921143847 Z13.29 [id number] Cristel Ball NP [facility] [address] [place] [address] 07/27/2023 13:56:14 07/27/2023 14:48:12 Hyperlipidemia 41788805 E78.5 Atorvastat in 40 mg po daily. Tremor 97278109 R25.1 Primidone 50 mg 1/2 tab po daily. Depressive disorder 3548 9007 F32.9 Sertraline 100 mg, 1.5 tab po daily. Doing better. Clonazapam prn (average one tablet daily) Anxiety 04805844 F41.9 Stable. Sertraline 100 mg, 1.5 tab po daily. Clonazepam prn. Essential hypertension 95851202 I10 Lisinopril 20 mg po nightly. Administra tion of influenza vaccine 55503050 Z23 Health Concerns Section Related Observation LastModified by Organization Detai ls LastModified Time None Recorded Concern Status LastModified by Organization Details LastModified Time None Recorded Advance Directives Directive Y: Payers Insurance Date Sequence Insurance Name Policy Number Policy Blood Covered Member ID Blood Member ID Guarantor Name 07/24/[address] [facility] ([place] [id number] Huong Teague [id number] Huong Teague Notes Date Note Type [...] home. Derm- went back to [facility] [employer]. Andreea said everything was ok.Did get mammogram. Weight- working on being more active. Got an E-bike. Plans to reduce weight. Left elbow pain and left muscle pain. Off and on, but constant for 1 week. Does use left arm to clean. Cristel Ball NP [address] [facility] [address], [place], [address], [facility] [employer] 02/07/2023 10:39:04 07/27/2023 text/html Here for med [...] Hasn't been on primidone since May. Cristel Ball, CHANDLER [address] [facility] [address], [place], [address], [facility] [employer], [place] 07/27/2023 14:41:12 OBGyn Episode No OBEpisode recorded.
--- OUTSIDE RECORDS SUMMARY | 2025-04-17 14:18 | XMS_ITS | Encounter Summary ---
Author Organization [facility] Address [address] [place] [address] Care Team Providers Care Graphic Designer Name Role Phone Unavailable Primary Care Provider Unavailabl e Encounter Details Date Type Department Care Team (Late st Contact Info) Description 04/16/2025 External Device Data STL ABSTRACTION [...] Description 07/03/2025 1:15 PM CDT Office Visit [facility] Oncology and Hematology - [place] [address] [facility] [address] [place] [address] Jens Turner MD [address] [facility] [address] [place] [address] documented as of this encounter Visit Diagnoses Not on filedocumented in this encounter
--- OUTSIDE RECORDS SUMMARY | 2025-04-17 14:18 | XMS_ITS | Clinical Summary ---
Author Organization [facility] Address [facility] [place] [address] Care Team Providers Care Valve Machine Operator Name Role Phone Unavailable Primary Care Provider Unavailabl e Allergies No known active allergies Medications multi vitamin/minerals tablet Take 1 tablet by mouth daily. Active Cholecalciferol (VITAMIN D) 50 MCG (2000 UT) Tab Take 1 tablet by mouth daily. Active [place]-3 Fatty Acids (FISH OIL) 500 MG capsule [...] A M CDT Height 157.5 cm (5' 2) 03/08/2021 8:04 AM CDT Body Mass Index [...] patient's age to complete this topic Insurance [facility]
== END 2025-04-17 14:03 | disposition home or self-care (01) ==
PROVIDERS: PCP Nurse Practitioner Family; Visit Provider Nurse Practitioner Family
DX: Z12.31 Encounter for screening mammogram for malignant neoplasm of breast (principal); Z78.0 Asymptomatic menopausal state; M85.88 Other specified disorders of bone density and structure, other site
CPT/HCPCS: 77063; 77067; 77080

== ENCOUNTER 2025-06-30 10:11 | Outpatient (CLI) | payer MEDICARE, SELFPAY ==
--- OUTSIDE RECORDS SUMMARY | 2025-06-30 10:52 | XMS_ITS | Clinical Summary ---
Author Organization [facility] Address [address] [place] [address] Care Team Providers Care Reed Cleaner Name Role Phone Unavailable Primary Care Provider Unavailabl e Allergies No known active allergies Medications atorvastatin (LIPITOR) 40 mg tablet Take 1 Tablet by mouth daily. 11/27/2024 Active primidone (MYSOLINE) 50 mg tablet Take 0.5 Tablets by mouth 2 times daily. 11/26/2024 Active Active Problems No known active problems Encounters Date Type Department Care Team Description 06/17/2025 External Device Data STL ABSTRACTION Provider, Abstract 06/10/2025 External Device Data STL ABSTRACTION Provider, Abstract 05/07/2025 External Device Data STL ABSTRACTION Provider, Abstract 05/06/2025 External Device Data STL ABSTRACTION Provider, Abstract 05/06/2025 External Device Data STL ABSTRACTION Provider, Abstract 04/16/2025 External Device Data STL ABSTRACTION Provider, Abstract 04/16/2025 External Device Data STL ABSTRACTION Provider, Abstract 04/15/2025 External Device Data STL ABSTRACTION Provider, Abstract from Last 3 Months Family History Medical [...] Description 07/03/2025 1:15 PM CDT Office Visit [facility] Oncology and Hematology [facility] [address] [facility] [address] [place] [address] Jens Turner MD [address] [facility] [address] [place] [address] Health Maintenance Due Date Last Done Comments Pre-Diabetes and Diabetes Screening 1960 BREAST CANCER SCREENING 1998 PNEUMOCOCCAL VACCINE 50+ YEA RS (1 of 1 - PCV) 2008 ZOSTER VACCINE (1 of 2) 2008 OSTEOPOROSIS SCREENING 2023 Medicare Advantage [place] Prev entative Visit/Annual Wellness Visit 10/02/2024 INFLUENZA VACCINE (#1) 2025 3, 07/27/2022, 07/23/2021 DTAP/TDAP/TD VACCINES (2 - T d or Tdap) 09/13/2026 09/13/2016 RSV VACCINE (60+ or ) (1 - 1-dose 75+ series) 2033 Insurance [employer] HMO MCR
--- OUTSIDE RECORDS SUMMARY | 2025-06-30 10:52 | XMS_ITS | Clinical Summary ---
Author Organization [facility] Address [facility] [place] [address] Care Team Providers Care Math Tutor Name Role Phone Unavailable Primary Care Provider Unavailabl e Allergies No known active allergies Medications multi vitamin/minerals tablet Take 1 tablet by mouth daily. Active Cholecalciferol (VITAMIN D) 50 MCG (2000 UT) Tab Take 1 tablet by mouth daily. Active [place]-3 Fatty Acids (FISH OIL) 500 MG capsule [...] COVID-19 Vaccine (1 - 2023-2 5 season) 2025 DTaP, Tdap and Td Vaccines ( 2 [...] patient's age to complete this topic Insurance [facility]
[2025-06-30 12:48] LABS: Hematocrit 39.7 % (37.0-47.0); Hemoglobin 12.7 g/dL (12.0-15.0); Mean Corpuscular HGB Conc 32.0 g/dl (32-36); Mean Corpuscular Hemoglobin 28.3 pg (26-34); Mean Corpuscular Volume 88.4 fl (80-100); Platelet Count Result 242 k/mm3 (150-375); Red Blood Count 4.49 M/mm3 (4.2-5.4); White Blood Count 8.3 K/mm3 (4.5-10.0)
[2025-06-30 13:03] LABS: Hemoglobin A1C 5.6 % (<5.7)
[2025-06-30 13:11] LABS: Cholesterol 188 mg/dL (0-200); HDL Direct 46 mg/dL; Triglycerides 203 mg/dL (<150)
[2025-06-30 13:14] LABS: Alanine Aminotransferase 31 U/L (6-35); Albumin Level 4.2 g/dL (3.5-5.1); Alkaline Phosphatase 152 U/L (38-126); Anion Gap 8 mmol/L (4-12); Aspartate Amino Transferase 33 U/L (14-36); Bilirubin,Total 0.5 mg/dL (0.2-1.3); Blood Urea Nitrogen 10 mg/dL (7-17); Calcium 9.2 mg/dL (8.4-10.2); Carbon Dioxide 25 mmol/L (22-30); Chloride 103 mmol/L (98-107); Estimated Glomerular Filt Rate > 60; Glucose 115 mg/dL (65-110); Iron 120 ug/dL (37-170); Potassium 3.8 mmol/L (3.4-5.0); Sodium 136 mmol/L (137-145); Total Protein 7.4 g/dL (6.3-8.2)
[2025-06-30 13:39] LABS: Percent Iron Saturation 38 % (20-50); Thyroid Stimulating Hormone Reflex 0.849 uIU/mL (0.465-4.68)
[2025-06-30 13:50] LABS: Carcinoembryonic Antigen 1.1 ng/mL (0.0-3.0)
[2025-06-30 13:55] LABS: Ferritin 47.50 ng/mL (11.1-264)
== END 2025-06-30 10:12 | disposition home or self-care (01) ==
PROVIDERS: PCP Nurse Practitioner Family; Referring Provider Internal Medicine Hematology & Oncology; Visit Provider Nurse Practitioner Family
DX: C18.9 Malignant neoplasm of colon, unspecified (principal); D64.9 Anemia, unspecified; E78.5 Hyperlipidemia, unspecified; F41.9 Anxiety disorder, unspecified; F33.1 Major depressive disorder, recurrent, moderate; R73.9 Hyperglycemia, unspecified; E78.2 Mixed hyperlipidemia; Z68.34 Body mass index [BMI] 34.0-34.9, adult
CPT/HCPCS: 36415; 80053; 80061; 82378; 82728; 83036; 83540; 83550; 84443; 85027